=== PATIENT | female | born 1945 | race Caucasian/White ===

== ENCOUNTER → 2016-11-09 | Outpatient (CLI) | payer MEDICARE ==
--- NOTE | 2016-11-14 11:06 | MM ---
Reason for exam: screening (asymptomatic). Last mammogram was performed 1 year and 2 months ago. History: Patient is postmenopausal. Physical Findings: A clinical breast exam by your physician is recommended on an annual basis and results should be correlated with mammographic findings. MG 3D Screening Mammo W/Cad Bilateral CC and MLO view(s) were taken. Prior study comparison: September 16, 2015, bilateral MG screening mammo w CAD. January 02, 2013, bilateral digital screening mammo w/CAD. There are scattered fibroglandular densities. There is no discrete abnormality. No significant changes when compared with prior studies. ASSESSMENT: Negative, BI-RAD 1 RECOMMENDATION: Routine screening mammogram of both breasts in 1 year.
== END | disposition home or self-care (01) ==
LOC: RADMAMWWP 07:37
PROVIDERS: ATTEND Family Medicine
DX: Z12.31 Encounter for screening mammogram for malignant neoplasm of breast (principal)
CPT/HCPCS: 77063; G0202

== ENCOUNTER → 2018-02-15 | Outpatient (CLI) | payer MEDICARE ==
--- NOTE | 2018-02-19 10:02 | MM ---
Reason for exam: screening (asymptomatic). Last mammogram was performed 1 year and 3 months ago. History: Patient is postmenopausal. Physical Findings: A clinical breast exam by your physician is recommended on an annual basis and results should be correlated with mammographic findings. MG Screening Mammo w CAD Bilateral CC and MLO view(s) were taken. Technologist: Mirtha Horvath RT (R)(M) Prior study comparison: November 09, 2016, bilateral MG 3d screening mammo w/cad. September 16, 2015, bilateral MG screening mammo w CAD. There are scattered fibroglandular densities. No significant changes when compared with prior studies. ASSESSMENT: Benign, BI-RAD 2 RECOMMENDATION: Routine screening mammogram of both breasts in 1 year.
== END | disposition home or self-care (01) ==
LOC: RADMAMWWP 12:58
PROVIDERS: ATTEND Family Medicine
DX: Z12.31 Encounter for screening mammogram for malignant neoplasm of breast (principal)
CPT/HCPCS: 77067

== ENCOUNTER → 2019-03-26 | Outpatient (CLI) | payer MEDICARE ==
--- NOTE | 2019-03-27 14:20 | MM ---
Reason for exam: screening (asymptomatic). Last mammogram was performed 1 year and 1 month ago. History: Patient is postmenopausal. Physical Findings: A clinical breast exam by your physician is recommended on an annual basis and results should be correlated with mammographic findings. MG 3D Screening Mammo W/Cad Bilateral CC and MLO view(s) were taken. Prior study comparison: February 15, 2018, bilateral MG screening mammo w CAD. November 09, 2016, bilateral MG 3d screening mammo w/cad. The breast tissue is heterogeneously dense. This may lower the sensitivity of mammography. Benign appearing bilateral calcifications. No suspicious abnormality. No significant changes when compared with prior studies. ASSESSMENT: Benign, BI-RAD 2 RECOMMENDATION: Routine screening mammogram of both breasts in 1 year.
== END | disposition home or self-care (01) ==
LOC: RADMAMWWP 09:51
PROVIDERS: ATTEND Family Medicine
DX: Z12.31 Encounter for screening mammogram for malignant neoplasm of breast (principal)
CPT/HCPCS: 77063; 77067

== ENCOUNTER → 2019-06-10 | Outpatient (CLI) | payer MEDICARE ==
--- NOTE | 2019-06-10 15:19 | XR ---
EXAMINATION TYPE: XR shoulder complete RT DATE OF EXAM: 06/10/2019 COMPARISON: NONE HISTORY: Pain TECHNIQUE: Three views are submitted. FINDINGS: The osseous structures are intact. There is no acute fracture or dislocation. Arthropathy of the AC joint. Diffuse osteopenia.. IMPRESSION: 1. Severe AC joint arthropathy. If there is concern for rotator cuff disease correlate with MRI. 2. Diffuse osteopenia
== END | disposition home or self-care (01) ==
LOC: RADXRMAIN 13:47
PROVIDERS: ATTEND Family Medicine
DX: M85.811 Other specified disorders of bone density and structure, right shoulder (principal); M12.811 Other specific arthropathies, not elsewhere classified, right shoulder

== ENCOUNTER → 2019-10-02 | Outpatient (CLI) | payer MEDICARE ==
--- NOTE | 2019-10-02 11:01 | CT ---
EXAMINATION TYPE: CT cervical spine wo con DATE OF EXAM: 10/02/2019 COMPARISON: None HISTORY: 74-year-old. Radiculopathy, cervical region TECHNIQUE: Contiguous axial scanning of the cervical spine without IV contrast. Coronal and sagittal reconstructions performed. CT DLP: 332 mGycm Automated exposure control for dose reduction was used. FINDINGS: Left ICA stent is present. No craniocervical junction abnormality, predental space, or prevertebral soft tissue swelling. Mild to moderate degenerative disc disease especially from C2 through C6 levels with discussed by com plex formation causing variable narrowing of the spinal canal at these levels. Alignment is maintained. Left sided C2-C3 facet bony ankylosis likely on a degenerative basis. Hypertrophic vertebral joint arthropathy. At C2-C3, moderate left neural foraminal stenosis. At C4-C5, moderate bilateral neural foraminal stenosis. At C5-C6, moderate right greater than left neural foraminal stenosis. At C7-T1, mild to moderate right neuroforaminal stenosis. IMPRESSION: 1. MODERATE MULTILEVEL SPONDYLOTIC CHANGE PARTICULARLY FROM C2-C6 LEVELS WITH MILD SPINAL CANAL STENO SES. 2. VARIABLE MODERATE NEURAL FORAMINAL STENOSES OUTLINED ABOVE. 3. NO MALALIGNMENT.
== END | disposition home or self-care (01) ==
LOC: RADCTMAIN 08:53
PROVIDERS: ATTEND Family Medicine
DX: M48.02 Spinal stenosis, cervical region (principal); M47.22 Other spondylosis with radiculopathy, cervical region
CPT/HCPCS: 72125

== ENCOUNTER 2023-09-14 13:49 | Observation (INO) | payer MEDICARE ==
--- NOTE | 2023-09-14 14:50 | ED ---
SOB HPI - General Source: patient, RN notes reviewed Mode of arrival: ambulatory Limitations: no limitations <Lulu Dsouza - Last Filed: 09/14/23 14:49> <Rell Caldera - Last Filed: 09/14/23 18:45> - General Chief Complaint: Shortness of Breath Stated Complaint: SOB Time Seen by Provider: 09/14/23 14:49 - History of Present Illness Initial Comments: Patient is a 78-year-old female presented to ER with chief complaint of dyspnea. Patient also was endorsing chest heaviness. Patient states has been going on since Monday. Patient denies any fevers, chills, night sweats. (Lulu Dsouza) This is a 78-year-old female presents to the emergency ferment. She complains today of dyspnea which started on Monday. Patient states she has some sharp chest pain particular on the left side. Patient states her dyspnea is worse with exertion. Patient states the pain is sharp in nature. Patient Nuys any swelling to legs or calf tenderness. Patient denies any cough or fever. Patient denies any upper respiratory symptoms. Patient denies abdominal pain. Patient has any back pain. (Rell Caldera) - Related Data Home Medications Medication Instructions Recorded Confirmed Aspirin 325 mg PO HS 09/16/15 09/14/23 Atorvastatin [Lipitor] 40 mg PO HS 09/16/15 09/14/23 Bisoprolol-Hctz 2.5-6.25 mg [Ziac 1 tab PO DAILY@1500 09/16/15 09/14/23 2.5-6.25 MG] Losartan [Cozaar] 50 mg PO DAILY@1500 09/16/15 09/14/23 amLODIPine [Norvasc] 10 mg PO DAILY@0800 09/16/15 09/14/23 Cholecalciferol [Vitamin D3 (25 50 mcg PO DAILY@1500 09/14/23 09/14/23 Mcg = 1000 Iu)] Levothyroxine Sodium [Synthroid] 125 mcg PO DAILY@0809/14/23 09/14/23 sitaGLIPtin [Januvia] 50 mg PO DAILY@0809/14/23 09/14/23 Allergies Allergy/AdvReac Type Severity Reaction Status Date / Time ibuprofen Allergy Itching Verified 09/14/23 17:57 Sulfa (Sulfonamide Allergy Rash/Hives Verified 09/14/23 17:57 Antibiotics) Review of Systems ROS Other: All systems not noted in ROS Statement are negative. <Lulu Dsouza - Last Filed: 09/14/23 14:49> ROS Other: All systems not noted in ROS Statement are negative. <Rell Caldera - Last Filed: 09/14/23 18:45> ROS Statement: Those systems with pertinent positive or pertinent negative responses have been documented in the HPI. Past Medical History Past Medical History: Coronary Artery Disease (CAD), Diabetes Mellitus, Hyperlipidemia, Hypertension, Thyroid Disorder History of Any Multi-Drug Resistant Organisms: None Reported Past Surgical History: Heart Catheterization With Stent, Hysterectomy, Tonsillectomy Additional Past Surgical History / Comment(s): HEART STENT X2, SIL CAROTIDENDARTECTOMY, SIL CATARACTS Past Anesthesia/Blood Transfusion Reactions: No Reported Reaction Date of Last Stent Placement:: UNKNOWN Past Psychological History: No Psychological Hx Reported Smoking Status: Never smoker Past Alcohol Use History: Rare Past Drug Use History: None Reported - Past Family History Mother Family Medical History: No Reported History <Lulu Dsouza - Last Filed: 09/14/23 14:49> General Exam Limitations: no limitations <Lulu Dsouza - Last Filed: 09/14/23 14:49> <Rell Caldera - Last Filed: 09/14/23 18:45> - General Exam Comments Initial Comments: Visual Physical Exam Vital signs reviewed General: Well-appearing, nontoxic, no acute distress. Head: Normocephalic, atraumatic Eyes: PERRLA, EOMI ENT: Airway patent Chest: Nonlabored breathing Skin: No visual rash, normal skin tone Neuro: Alert and oriented 3 Musculoskeletal: No gross abnormalities (Lulu Dsouza) GENERAL: Patient is well-developed and well-nourished. Patient is nontoxic and well- hydrated and is in mild distress. ENT: Neck is soft and supple. No significant lymphadenopathy is noted. Oropharynx is clear. Moist mucous membranes. Neck has full range of motion without eliciting any pain. EYES: The sclera were anicteric and conjunctiva were pink and moist. Extraocular movements were intact and pupils were equal round and reactive to light. Eyel ids were unremarkable. PULMONARY: Unlabored respirations. Good breath sounds bilaterally. No audible rales rhonchi or wheezing was noted. CARDIOVASCULAR: There is a regular rate and rhythm without any murmurs gallops or rubs. ABDOMEN: Soft and nontender with normal bowel sounds. SKIN: Skin is clear with no lesions or rashes and otherwise unremarkable. NEUROLOGIC: Patient is alert and oriented x3. Cranial nerves II through XII are grossly intact. Motor and sensory are also intact. Normal speech, volume and content. Symmetrical smile. MUSCULOSKELETAL: Normal extremities with adequate strength and full range of motion. LYMPHATICS: No significant lymphadenopathy is noted PSYCHIATRIC: Normal psychiatric evaluation. (Rell Caldera) Course Vital Signs 09/14/23 09/14/23 09/14/23 13:58 15:13 17:22 Temperature 98.8 F 98.4 F 98 F Pulse Rate 53 L 93 85 Respiratory 16 20 20 Rate Blood Pressure 132/73 160/75 147/66 O2 Sat by Pulse 95 96 94 L Oximetry Medical Decision Making <Lulu Dsouza - Last Filed: 09/14/23 14:49> - Lab Data Result diagrams: 09/14/23 14:23 09/14/23 14:23 <Rell Caldera - Last Filed: 09/14/23 18:45> - Medical Decision Making I performed the quick note portion of the exam. Electronically signed by Lulu Dsouza PA-C (Lulu Dsouza) EKG is interpreted by myself. EKG shows a sinus rhythm with occasional PVC at 94 bpm. 180 QRS 113 QT interval 356 QTc is 407. Patient's EKG shows no ST segment elevation. Was pt. sent in by a medical professional or institution ([facility], [facility], urgent care, hospital, or longterm...) When possible be specific @ -Patient's primary medical care doctor sent her to the emergency department Did you speak to anyone other than the patient for history (EMS, parent, family, police, friend...)? What history was obtained from this source @ -No Did you review nursing and triage notes (agree or disagree)? Why? @ -I reviewed and agree with nursing and triage notes Were old charts reviewed (outside hosp., previous admission, EMS record, old EKG, old radiological studies, urgent care reports/EKG's, longterm records)? Report findings @ -I reviewed prior charts and prior lab work on this patient Differential Diagnosis (chest pain, altered mental status, abdominal pain women, abdominal pain men, vaginal bleeding, weakness, fever, dyspnea, syncope, heada ly, dizziness, GI bleed, back pain, seizure, CVA, palpatations, mental health, musculoskeletal)? @ -Differential Dyspnea: Coronary syndrome, arrhythmia, tamponade, asthma, COPD, pulmonary embolism, pneumonia, pneumothorax, pulmonary effusion, anaphylaxis, diabetic ketoacidosis, flailed chest, pulmonary contusion, diaphragmatic rupture, anemia, neuromuscular, this is not meant to be an all-inclusive list. EKG interpreted by me (3pts min.). @ -As above X-rays interpreted by me (1pt min.). @ -Chest x-ray shows an infiltrate and pleural effusion on the right CT interpreted by me (1pt min.). @ -CT shows an opacification in the right apex consistent with possible neoplasm U/S interpreted by me (1pt. min.). @ -None done What testing was considered but not performed or refused? (CT, X-rays, U/S, labs)? Why? @ -None What meds were considered but not given or refused? Why? @ -None Did you discuss the management of the patient with other professionals (professionals i.e. , PA, [facility], lab, RT, psych nurse, social psychologist, farm implement mechanic, teacher, sea air land officer, bottle caser)? Give summary @ -[facility] admitted the patient and wrote admitting orders Was smoking cessation discussed for >3mins.? @ -No Was critical care preformed (if so, how long)? @ -No Were there social determinants of health that impacted care today? How? (Homeles sness, low income, unemployed, alcoholism, drug addiction, transportation, low edu. Level, literacy, decrease access to med. care, usp, rehab)? @ -No Was there de-escalation of care discussed even if they declined (Discuss DNR or withdrawal of care, Hospice)? DNR status @ -No What co-morbidities impacted this encounter? (DM, HTN, Smoking, COPD, CAD, Cancer, CVA, ARF, Chemo, Hep., AIDS, mental health diagnosis, sleep apnea, morbid obesity)? @ -None Was patient admitted / discharged? Hospital course, mention meds given and route, prescriptions, significant lab abnormalities, going to OR and other pertinent info. @ -Patient will be admitted to [facility] hospice I will consult pulmonary and oncology Undiagnosed new problem with uncertain prognosis? @ -No Drug Therapy requiring intensive monitoring for toxicity (Heparin, Nitro, Insulin, Cardizem)? @ -No Were any procedures done? @ -No Diagnosis/symptom? @ -Right lung mass Acute, or Chronic, or Acute on Chronic? @ -Acute Uncomplicated (without systemic symptoms) or Complicated (systemic symptoms)? @ -Complicated Side effects of treatment? @ -No Exacerbation, Progression, or Severe Exacerbation? @ -No Poses a threat to life or bodily function? How? (Chest pain, [place], [place], pneumonia, PE, COPD, DKA, ARF, appy, cholecystitis, CVA, Diverticulitis, Homicidal, Suicidal, threat to staff... and all critical care pts) @ -Yes this could be a tumor with metastatic pleural effusion which can lead to further metastasis and endorgan dysfunction Diagnosis/symptom? @ -Right lung opacification Acute, or Chronic, or Acute on Chronic? @ -Acute Uncomplicated (without systemic symptoms) or Complicated (systemic symptoms)? @ -Complicated Side effects of treatment? @ -None Exacerbation, Progression, or Severe Exacerbation] @ -No Poses a threat to life or bodily function? @ -No (Rell Caldera) - Lab Data Lab Results 09/14/23 09/14/23 09/14/23 Range/Units 14:23 14:23 14:23 WBC 12.7 H (3.8-10.6) k/uL RBC 4.14 (3.80-5.40) m/uL Hgb 12.5 (11.4-16.0) gm/dL Hct 36.2 (34.0-46.0) % MCV 87.3 (80.0-100.0) fL MCH 30.2 (25.0-35.0) pg MCHC 34.6 (31.0-37.0) g/dL RDW 13.4 (11.5-15.5) % Plt Count 258 (150-450) k/uL MPV 7.1 Neutrophils % 80 % Lymphocytes % 11 % Monocytes % 6 % Eosinophils % 1 % Basophils % 1 % Neutrophils # 10.1 H (1.3-7.7) k/uL Lymphocytes # 1.4 (1.0-4.8) k/uL Monocytes # 0.8 (0-1.0) k/uL Eosinophils # 0.2 (0-0.7) k/uL Basophils # 0.1 (0-0.2) k/uL PT 10.4 (10.0-12.5) sec INR 0.9 (<1.2) APTT 26.2 (22.0-30.0) sec Sodium 134 L (137-145) mmol/L Potassium 3.6 (3.5-5.1) mmol/L Chloride 99 (98-107) mmol/L Carbon Dioxide 25 (22-30) mmol/L Anion Gap 10 mmol/L BUN 11 (7-17) mg/dL Creatinine 0.66 (0.52-1.04) mg/dL Est GFR (CKD-EPI)AfAm >90 (>60 ml/min/1.73 sqM) Est GFR (CKD-EPI)NonAf 84 (>60 ml/min/1.73 sqM) Glucose 233 H (74-99) mg/dL Calcium 10.0 (8.4-10.2) mg/dL Total Bilirubin 0.6 (0.2-1.3) mg/dL AST 28 (14-36) U/L ALT 17 (4-34) U/L Alkaline Phosphatase 94 (38-126) U/L Troponin I (0.000-0.034) ng/mL Total Protein 8.3 H (6.3-8.2) g/dL Albumin 4.5 (3.5-5.0) g/dL Influenza Type A (PCR) (Not Detectd) Influenza Type B (PCR) (Not Detectd) RSV (PCR) (Not Detectd) SARS-CoV-2 (PCR) (Not Detectd) 09/14/23 09/14/23 Range/Units 14:23 14:23 WBC (3.8-10.6) k/uL RBC (3.80-5.40) m/uL Hgb (11.4-16.0) gm/dL Hct (34.0-46.0) % MCV (80.0-100.0) fL MCH (25.0-35.0) pg MCHC (31.0-37.0) g/dL RDW (11.5-15.5) % Plt Count (150-450) k/uL MPV Neutrophils % % Lymphocytes % % Monocytes % % Eosinophils % % Basophils % % Neutrophils # (1.3-7.7) k/uL Lymphocytes # (1.0-4.8) k/uL Monocytes # (0-1.0) k/uL Eosinophils # (0-0.7) k/uL Basophils # (0-0.2) k/uL PT (10.0-12.5) sec INR (<1.2) APTT (22.0-30.0) sec Sodium (137-145) mmol/L Potassium (3.5-5.1) mmol/L Chloride (98-107) mmol/L Carbon Dioxide (22-30) mmol/L Anion Gap mmol/L BUN (7-17) mg/dL Creatinine (0.52-1.04) mg/dL Est GFR (CKD-EPI)AfAm (>60 ml/min/1.73 sqM) Est GFR (CKD-EPI)NonAf (>60 ml/min/1.73 sqM) Glucose (74-99) mg/dL Calcium (8.4-10.2) mg/dL Total Bilirubin (0.2-1.3) mg/dL AST (14-36) U/L ALT (4-34) U/L Alkaline Phosphatase (38-126) U/L Troponin I <0.012 (0.000-0.034) ng/mL Total Protein (6.3-8.2) g/dL Albumin (3.5-5.0) g/dL Influenza Type A (PCR) Not Detected (Not Detectd) Influenza Type B (PCR) Not Detected (Not Detectd) RSV (PCR) Not Detected (Not Detectd) SARS-CoV-2 (PCR) Not Detected (Not Detectd) Disposition <Lulu Dsouza - Last Filed: 09/14/23 14:49> Time of Disposition: 18:45 <Rell Caldera - Last Filed: 09/14/23 18:45> Clinical Impression: Mass of lung, Pneumonia Disposition: ADMITTED IP TO THIS HOSP Referrals: Esteban Grant DO [Primary Care Provider] - 1-2 days
--- NOTE | 2023-09-14 14:54 | XR ---
EXAMINATION TYPE: XR chest 2V DATE OF EXAM: 09/14/2023 COMPARISON: None HISTORY: 78 year-old female shortness of breath, difficulty breathing TECHNIQUE: PA and lateral views FINDINGS: Heart normal size. Atherosclerotic arch calcifications. There is a small right pleural effusion and r ight upper lobe. IMPRESSION: Prominent focal opacity right upper lobe, possible pneumonia. Additional small right pleural effusion . Follow-up after treatment to ensure clearance.
[2023-09-14 15:03] LABS: INR 0.9 (<1.2); Partial Thromboplastin Time 26.2 sec (22.0-30.0); Prothrombin Time 10.4 sec (10.0-12.5)
[2023-09-14 15:05] LABS: Basophils # (A) 0.1 k/uL (0-0.2); Basophils % (A) 1 %; Eosinophils # (A) 0.2 k/uL (0-0.7); Eosinophils % (A) 1 %; HCT 36.2 % (34.0-46.0); HGB 12.5 gm/dL (11.4-16.0); Lymphocytes # (A) 1.4 k/uL (1.0-4.8); Lymphocytes % (A) 11 %; MCH 30.2 pg (25.0-35.0); MCHC 34.6 g/dL (31.0-37.0); MCV 87.3 fL (80.0-100.0); Mean Platelet Volume 7.1; Monocytes # (A) 0.8 k/uL (0-1.0); Monocytes % (A) 6 %; Neutrophils # (A) 10.1 k/uL (1.3-7.7); Neutrophils % (A) 80 %; Platelet Count 258 k/uL (150-450); RBC 4.14 m/uL (3.80-5.40); RDW 13.4 % (11.5-15.5)
[2023-09-14 15:06] LABS: WBC 12.7 k/uL (3.8-10.6)
[2023-09-14 15:37] LABS: ALT 17 U/L (4-34); AST 28 U/L (14-36); African American GFR (CKD) >90 (>60 ml/min/1.73 sqM); Albumin 4.5 g/dL (3.5-5.0); Alkaline Phosphatase 94 U/L (38-126); Anion Gap 10 mmol/L; Blood Urea Nitrogen 11 mg/dL (7-17); Carbon Dioxide 25 mmol/L (22-30); Chloride 99 mmol/L (98-107); Glucose 233 mg/dL (74-99); Non-African American GFR(CKD) 84 (>60 ml/min/1.73 sqM); Potassium 3.6 mmol/L (3.5-5.1); Sodium 134 mmol/L (137-145); Total Bilirubin 0.6 mg/dL (0.2-1.3); Total Protein 8.3 g/dL (6.3-8.2)
[2023-09-14] MEDS ORDERED: KETOROLAC 15 MG/ML 1 ML VIAL IVP STA (16:05)
--- NOTE | 2023-09-14 17:31 | CT ---
EXAMINATION TYPE: CT chest angio for PE CT DLP: 315 mGycm, Automated exposure control for dose reduction was used. DATE OF EXAM: 09/14/2023 5:12 PM COMPARISON: Chest radiographs 09/14/2023 CLINICAL INDICATION:Female, 78 years old with history of Chest pain, shortness of breath; Chest pain, SOB TECHNIQUE/CONTRAST: CTA scan of the thorax is performed with IV Contrast, patient injected with 100 mL of Isovue 370, MIP images are created and reviewed these are created on a separate workstation.. FINDINGS: Pulmonary Artery: There is no evidence for a filling defect within the pulmonary vasculature to sugge st acute pulmonary embolism. The pulmonary artery is of normal size. Lungs/Pleura: Since moderate right pleural effusion with associated atelectasis. There is right perih ilar soft tissue fullness which extends up towards the periphery. Patchy airspace opacities are seen in the right upper lung. Perihilar soft tissue masslike area measuring at least 32 x 29 mm. Multiple prominent lymph nodes are seen throughout the mediastinum including right high paratracheal lymph nod e measuring 8 mm in short axis as well as subcarinal soft tissue and right low paratracheal lymph nod es. Airway: Large airways are patent. Heart: There is mildly enlarged for size. There is coronary artery calcifications present. Vasculature: No evidence of aortic aneurysm. Mediastinum: No gross evidence of adenopathy. Musculoskeletal: No acute osseous abnormalities Soft Tissues: Unremarkable. Lower neck: No significant findings. Upper Abdomen: Large left renal cyst measuring 8.6 cm. Layering densities in the gallbladder lumen. IMPRESSION: 1. No evidence of pulmonary embolism. 2. Right perihilar soft tissue fullness which extends somewhat towards the periphery in the right katherin g apex. Findings suspicious for neoplasm. Further oncologic workup recommended. 3. Patchy right upper lung airspace opacities possibly relating to postobstructive infection/atelecta sis from obstructing right perihilar mass. 4. Moderate right pleural effusion. 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 5. Cholelithiasis.
[2023-09-14] MEDS ORDERED: AZITHROMYCIN 500 MG in SODIUM CHLORIDE 0.9% 250 ML IVPB STA (18:46)
[2023-09-14] MEDS ORDERED: PNEUMONIA PROTOCOL UTILIZED 1 EACH MISC PO PRN (18:46)
--- NOTE | 2023-09-15 08:01 | XR ---
EXAMINATION TYPE: XR chest 2V DATE OF EXAM: 09/15/2023 COMPARISON: 09/14/2023 HISTORY: Shortness of breath TECHNIQUE: Frontal and lateral views of the chest are obtained. FINDINGS: Scattered senescent parenchymal changes noted. Hyperinflation compatible with COPD. Stable right upper lobe infiltrate. Increasing density right medial lung base. Heart size is stable. Mediastinal structures are stable and grossly unremarkable. No evidence for hilar prominence. Degenerative changes dorsal spine. IMPRESSION: 1. Stable right upper lobe infiltrate. Increasing density right medial lung base.
[2023-09-15] MEDS ORDERED: SODIUM CHLORIDE 0.9% 1,000 ML IV SCH (09:00)
[2023-09-15] MEDS ORDERED: ONDANSETRON 4 MG/2 ML VIAL IVP PRN (09:00)
[2023-09-15] MEDS ORDERED: NALOXONE 0.4 MG/ML 1 ML VIAL IV PRN (09:00)
[2023-09-15] MEDS ORDERED: DEXTROSE 50% SYRINGE 50 ML IVP PRN ×2 (09:01)
[2023-09-15] MEDS: ACETAMINOPHEN TAB 325 MG TAB PO PRN ×2 (09:06→19:01)
[2023-09-15] MEDS: guaiFENesin 600 MG TABLET.ER PO SCH ×2 (09:18→22:03)
[2023-09-15 11:57] LABS: Glucose,Whole Blood 155 mg/dL (70-110)
--- NOTE | 2023-09-15 12:28 | P.HPIM ---
History of Present Illness H&P Date: 09/15/23 Chief Complaint: Shortness of breath * 78-year-old patient with past medical history significant for diabetes mellitus, hyperlipidemia hypertension coronary artery disease history of PCI, degenerative disease with low back pain, carotid artery stenosis with left carotid artery stent in place presents to the emergency department with complaints of shortness of breath, and chest pain. Patient states her symptom onset was 5 days ago when she started having difficulty in breathing. This was associated with sharp chest pain that was affecting left side. Patient states her shortness of breath got worse with exertion. Patient denies associated fever, chills, nausea, vomiting, back pain * Workup initiated in the ER included WBC count of 12.7, hemoglobin of 12.5 platelet count of 250 * Serum chemistry showed sodium 134 potassium 3.6 BUN 11 creatinine 0.66 glucose 233 protein of 8.3 troponin within normal limits * Patient tested negative for influenza COVID and RSV * Chest x-ray obtained in ER raise suspicion for focal opacity in the right upper lobe * CT angio chest was obtained which showed right perihilar soft tissue fullness that extend to the right lung apex suspicion for neoplasm, right upper lobe opacity noted, significant amount of pleural effusion was noted in right lung * Patient was admitted to medical floor with consultation to pulmonary medicine. Treated for new onset lung mass as well as postobstructive pneumonia REVIEW OF SYSTEMS: Cough, shortness of breath, weakness, chest pain CONSTITUTIONAL: No fever, no malaise, no fatigue. HEENT: No recent visual problems or hearing problems. Denied any sore throat. CARDIOVASCULAR: No chest pain, orthopnea, PND, no palpitations, no syncope. PULMONARY: Cough, shortness of breath, weakness, chest pain GASTROINTESTINAL: No diarrhea, no nausea, no vomiting, no abdominal pain. NEUROLOGICAL: No headaches, no weakness, no numbness. HEMATOLOGICAL: Denies any bleeding or petechiae. GENITOURINARY: Denies any burning micturition, frequency, or urgency. MUSCULOSKELETAL/RHEUMATOLOGICAL: Denies any joint pain, swelling, or any muscle pain. ENDOCRINE: Denies any polyuria or polydipsia. PHYSICAL EXAMINATION: GENERAL: The patient is alert and oriented x3, nasal cannula in place HEENT: Pupils are round and equally reacting to light. EOMI. CARDIOVASCULAR: S1 and S2 present. No murmurs, rubs, or gallops. PULMONARY: Decreased breath sounds right lower lobe ABDOMEN: Soft, nontender, nondistended, normoactive bowel sounds. No palpable organomegaly. MUSCULOSKELETAL: No joint swelling or deformity. EXTREMITIES: No cyanosis, clubbing, or pedal edema. NEUROLOGICAL: Gross neurological examination did not reveal any focal deficits. . Past Medical History Past Medical History: Coronary Artery Disease (CAD), Diabetes Mellitus, Hyperlipidemia, Hypertension, Thyroid Disorder History of Any Multi-Drug Resistant Organisms: None Reported Past Surgical History: Heart Catheterization With Stent, Hysterectomy, Tonsillectomy Additional Past Surgical History / Comment(s): HEART STENT X2, SIL CAROTIDENDARTECTOMY, SIL CATARACTS Past Anesthesia/Blood Transfusion Reactions: No Reported Reaction Date of Last Stent Placement:: UNKNOWN Past Psychological History: No Psychological Hx Reported Smoking Status: Never smoker Past Alcohol Use History: Rare Additional Past Alcohol Use History / Comment(s): QUIT SMOKING 1994, STARTED AGE 17 (1962), SMOKED 1PPD Past Drug Use History: None Reported - Past Family History Mother Family Medical History: No Reported History Medications and Allergies Home Medications Medication Instructions Recorded Confirmed Type Aspirin 325 mg PO HS 09/16/15 09/14/23 History Atorvastatin [Lipitor] 40 mg PO HS 09/16/15 09/14/23 History Bisoprolol-Hctz 2.5-6.25 mg [Ziac 1 tab PO DAILY@1500 09/16/15 09/14/23 History 2.5-6.25 MG] Losartan [Cozaar] 50 mg PO DAILY@1500 09/16/15 09/14/23 History amLODIPine [Norvasc] 10 mg PO DAILY@0800 09/16/15 09/14/23 History Cholecalciferol [Vitamin D3 (25 50 mcg PO DAILY@1500 09/14/23 09/14/23 History Mcg = 1000 Iu)] Levothyroxine Sodium [Synthroid] 125 mcg PO DAILY@79909/14/23 09/14/23 History sitaGLIPtin [Januvia] 50 mg PO DAILY@79909/14/23 09/14/23 History Allergies Allergy/AdvReac Type Severity Reaction Status Date / Time ibuprofen Allergy Itching Verified 09/14/23 17:57 Sulfa (Sulfonamide Allergy Rash/Hives Verified 09/14/23 17:57 Antibiotics) Physical Exam Vitals: Vital Signs Temp Pulse Pulse Resp BP BP BP 09/15/23 07:41 09/15/23 07:24 98.2 F 78 17 134/75 09/15/23 03:25 12 09/15/23 02:21 98.3 F 86 18 126/71 09/14/23 22:04 97.7 F 95 17 114/64 09/14/23 20:00 92 20 109/66 09/14/23 17:22 98 F 85 20 147/66 09/14/23 15:13 98.4 F 93 20 160/75 09/14/23 13:58 98.8 F 53 L 16 132/73 Pulse Ox 09/15/23 07:41 97 09/15/23 07:24 97 09/15/23 03:25 97 09/15/23 02:21 92 L 09/14/23 22:04 93 L 09/14/23 20:00 97 09/14/23 17:22 94 L 09/14/23 15:13 96 09/14/23 13:58 95 Intake and Output 09/14/23 09/15/23 09/15/23 22:59 06:59 14:59 Other: Weight 70.307 kg Results CBC & Chem 7: 09/14/23 14:23 09/14/23 14:23 Labs: Abnormal Lab Results - Last 24 Hours (Table) 09/14/23 09/14/23 Range/Units 14:23 14:23 WBC 12.7 H (3.8-10.6) k/uL Neutrophils # 10.1 H (1.3-7.7) k/uL Sodium 134 L (137-145) mmol/L Glucose 233 H (74-99) mg/dL Total Protein 8.3 H (6.3-8.2) g/dL Assessment and Plan Assessment: Assessment and plan * Right perihilar mass rule out neoplasm * Postobstructive pneumonia * Moderate right sided pleural effusion * Cholelithiasis incidental finding * Diabetes mellitus type 2 * History of coronary artery disease * Carotid artery disease * History of hypertension * In regards to perihilar mass, pulmonary medicine consulted CT angio chest reviewed, continue breathing treatments as needed patient has unilateral effusion * In regards to postobstructive pneumonia continue patient on Rocephin and azithromycin to complete 5-day course total follow-up on urine Legionella * In regards to diabetes mellitus Accu-Cheks ACHS continue correctional insulin continue patient on Januvia and linagliptin * In regards to history of hypertension continue losartan, continue amlodipine * In regards to history of coronary artery disease continue aspirin, Lipitor, bisoprolol * CODE STATUS is full code
[2023-09-15] MEDS: INSULIN ASPART (NovoLOG) 100 UNIT/ML VIAL SQ SCH ×3 (12:52→22:03)
[2023-09-15] MEDS: LIDOCAINE 4% PATCH TOPICAL SCH (12:52)
--- NOTE | 2023-09-15 14:04 | P.CNPUL ---
History of Present Illness Consult date: 09/15/23 Requesting physician: Linh Coreas Reason for consult: dyspnea, abnormal CXR/CT Chief complaint: Shortness of breath History of present illness: This is a very pleasant 78-year-old female patient with a known history of coronary disease with previous stent placement x 2, diabetes mellitus, hypot hyroidism, hypertension, hyperlipidemia, former smoker of 35 years at 1 pack/day however quit 25 years ago. 4 to 5 days ago she developed increasing shortness of breath, poor appetite. No real cough or congestion. No fever or chills. No hemoptysis. She has had a poor appetite. She presented here to the emergency room yesterday. Chest x-ray revealed prominent focal opacity of the right upper lobe, possible pneumonia. Additional small right pleural effusion. CT angiogram revealed no evidence of pulmonary embolism. There is a right perihilar soft tissue fullness which extends somewhat towards the periphery of the right lung apex. Findings suspicious for neoplasm. There is a patchy right upper lobe airspace opacity possibly postobstructive in infection/atelectasis from obstructing right perihilar mass. There is a moderate right pleural effusion. Possible malignancy within the differential. White count 12.7. Hemoglobin 12.5. Platelets 258. INR 0.9. Sodium 134. Potassium 3.6. Bicarb 25. BUN 11. Creatinine 0.66. Glucose 155. Troponins were negative x 3. Viral screen was negative. She is seen today in consultation on the regular medical floor. She is currently sitting up in bed. Awake and alert in no acute distress. She continues with some shortness of breath with conversation. Shortness of breath on exertion. She is maintaining O2 saturation 2 L/min per nasal cannula. She is afebrile. Hemodynamically stable Review of Systems REVIEW OF SYSTEMS: CONSTITUTIONAL: Denies any recent significant weight loss or weight gain. EYES: Denies change in vision. EARS, NOSE, MOUTH, THROAT: Denies headaches, denies sore throat. CARDIOVASCULAR: Denies chest pain, palpitations or syncopal episodes. RESPIRATORY: Positive for shortness of breath, no cough, congestion or hemoptysis. GASTROINTESTINAL: Positive for poor appetite, denies abdominal pain GENITOURINARY: Denies hematuria, denies infections. MUSKULOSKELETAL: Denies pain, denies swelling. INTEGUMENTARY: Denies rash, denies eczema. NEUROLOGICAL: Denies recent memory loss, no recent seizure activity. PSYCHIATRIC: Denies anxiety, denies depression. HEMATOLOGIC/LYMPHATIC: Denies anemia, denies enlarged lymph nodes. Past Medical History Past Medical History: Coronary Artery Disease (CAD), Diabetes Mellitus, Hyperlipidemia, Hypertension, Thyroid Disorder History of Any Multi-Drug Resistant Organisms: None Reported Past Surgical History: Heart Catheterization With Stent, Hysterectomy, Tonsillectomy Additional Past Surgical History / Comment(s): HEART STENT X2, SIL CAROTIDENDARTECTOMY, SIL CATARACTS Past Anesthesia/Blood Transfusion Reactions: No Reported Reaction Date of Last Stent Placement:: UNKNOWN Past Psychological History: No Psychological Hx Reported Smoking Status: Never smoker Past Alcohol Use History: Rare Additional Past Alcohol Use History / Comment(s): QUIT SMOKING 1994, STARTED AGE 17 (1962), SMOKED 1PPD Past Drug Use History: None Reported - Past Family History Mother Family Medical History: No Reported History Medications and Allergies Home Medications Medication Instructions Recorded Confirmed Type Aspirin 325 mg PO HS 09/16/15 09/14/23 History Atorvastatin [Lipitor] 40 mg PO HS 09/16/15 09/14/23 History Bisoprolol-Hctz 2.5-6.25 mg [Ziac 1 tab PO DAILY@1500 09/16/15 09/14/23 History 2.5-6.25 MG] Losartan [Cozaar] 50 mg PO DAILY@1500 09/16/15 09/14/23 History amLODIPine [Norvasc] 10 mg PO DAILY@0800 09/16/15 09/14/23 History Cholecalciferol [Vitamin D3 (25 50 mcg PO DAILY@1500 09/14/23 09/14/23 History Mcg = 1000 Iu)] Levothyroxine Sodium [Synthroid] 125 mcg PO DAILY@0809/14/23 09/14/23 History sitaGLIPtin [Januvia] 50 mg PO DAILY@79909/14/23 09/14/23 History Allergies Allergy/AdvReac Type Severity Reaction Status Date / Time ibuprofen Allergy Itching Verified 09/14/23 17:57 Sulfa (Sulfonamide Allergy Rash/Hives Verified 09/14/23 17:57 Antibiotics) Physical Exam Vitals: Vital Signs Temp Pulse Pulse Resp BP BP BP 09/15/23 12:36 97.9 F 87 16 128/70 09/15/23 07:41 09/15/23 07:24 98.2 F 78 17 134/75 09/15/23 03:25 12 09/15/23 02:21 98.3 F 86 18 126/71 09/14/23 22:04 97.7 F 95 17 114/64 09/14/23 20:00 92 20 109/66 09/14/23 17:22 98 F 85 20 147/66 09/14/23 15:13 98.4 F 93 20 160/75 09/14/23 13:58 98.8 F 53 L 16 132/73 Pulse Ox 09/15/23 12:36 96 09/15/23 07:41 97 09/15/23 07:24 97 09/15/23 03:25 97 09/15/23 02:21 92 L 09/14/23 22:04 93 L 09/14/23 20:00 97 09/14/23 17:22 94 L 09/14/23 15:13 96 09/14/23 13:58 95 Intake and Output 09/14/23 09/15/23 09/15/23 22:59 06:59 14:59 Other: Voiding Method Toilet Weight 70.307 kg GENERAL EXAM: Alert, very pleasant 78-year-old female, on 2 L nasal cannula, fairly comfortable in no apparent distress. HEAD: Normocephalic. EYES: Normal reaction of pupils, equal size. NOSE: Clear with pink turbinates. THROAT: No erythema or exudates. NECK: No masses, no JVD. CHEST: No chest wall deformity. LUNGS: Equal air entry with diminished breath sounds in the right lung base. CVS: S1 and S2 normal with no audible murmur, regular rhythm. ABDOMEN: No hepatosplenomegaly, normal bowel sounds, no guarding or rigidity. SPINE: No scoliosis or deformity SKIN: No rashes CENTRAL NERVOUS SYSTEM: No focal deficits, tone is normal in all 4 extremities. EXTREMITIES: There is no peripheral edema. No clubbing, no cyanosis. Peripheral pulses are intact. Results - Laboratory Findings CBC and BMP: 09/14/23 14:23 09/14/23 14:23 PT/INR, D-dimer PT 10.4 sec (10.0-12.5) 09/14/23 14:23 INR 0.9 (<1.2) 09/14/23 14:23 Abnormal lab findings: Abnormal Labs 09/14/23 09/14/23 09/15/23 14:23 14:23 11:55 WBC 12.7 H Neutrophils # 10.1 H Sodium 134 L Glucose 233 H POC Glucose (mg/dL) 155 H Total Protein 8.3 H - Diagnostic Findings Chest x-ray: image reviewed CT scan - chest: image reviewed Assessment and Plan Assessment: Acute hypoxemic respiratory failure secondary to suspected postobstructive pneumonia secondary to to a right hilar mass and pleural effusion on the right History of 35 years of smoking at 1 pack/day however quit 25 years ago History of coronary disease with stent placement x 2 Diabetes mellitus Hypothyroidism Hypertension Hyperlipidemia Plan: The patient was seen and evaluated Chest x-ray, CT angiogram of the chest, labs and medications reviewed Obtain an ultrasound of the right pleural effusion May proceed with thoracentesis if significant fluid Check a procalcitonin Continue ceftriaxone and azithromycin for now Lovenox for DVT prophylaxis Saline at 75 MLS per hour May require bronchoscopy with biopsies Titrate the FiO2 as tolerated We will continue to follow and make further recommendations based on her clinical status I have personally seen and examined the patient, performed the documentation and the assessment and plan as written. Number of minutes spent on the visit: 20.
[2023-09-15] MEDS: CHOLECALCIFEROL 25 MCG (1000 IU) TABLET PO SCH (15:44)
[2023-09-15] MEDS: HYDROcodone/APAP 5-325MG 1 EACH TAB PO PRN ×2 (15:44→21:32)
[2023-09-15] MEDS: LOSARTAN 50 MG TAB PO SCH (15:44)
--- NOTE | 2023-09-15 16:13 | XR ---
EXAMINATION TYPE: XR chest 1V portable DATE OF EXAM: 09/15/2023 3:58 PM CLINICAL INDICATION:Female, 78 years old with history of Post right thoracentesis; [facility] COMPARISON: Chest radiographs from same day earlier. TECHNIQUE: XR chest 1V portable Frontal view of the chest. FINDINGS: Lungs/Pleura: Decrease in right pleural effusion. There is no evidence of left pleural effusion, foca l consolidation, or pneumothorax. Pulmonary vascularity: Unremarkable. Heart/mediastinum: Cardiomediastinal silhouette is prominent in size. Atherosclerotic calcifications are seen in the aorta. Musculoskeletal: No acute osseous pathology. IMPRESSION: 1. Postthoracentesis with no evidence for pneumothorax. 2. No significant change with right upper lung airspace opacities
[2023-09-15] MEDS: BISOPROLOL-HCTZ 2.5-6.25 MG 1 EACH TAB PO SCH (16:26)
[2023-09-15 17:44] LABS: Glucose,Whole Blood 209 mg/dL (70-110)
[2023-09-15] MEDS ORDERED: AZITHROMYCIN 500 MG TAB PO SCH (18:00)
--- NOTE | 2023-09-15 19:52 | PCN ---
PROCEDURE NOTE PROCEDURE PERFORMED: Right-sided thoracentesis. PREOPERATIVE DIAGNOSIS: Right pleural effusion. POSTOPERATIVE DIAGNOSIS: Right pleural effusion. WASHER AND CAPPER MACHINE OPERATOR: Dr. Alan. FIRST ASSOCIATE JAVA DEVELOPER: Dr. Suzie Freire. The right posterior chest was marked by ultrasound. A time-out was completed verifying correct patient, procedure, site, positioning , and implant (s) or special equipment if applicable. Ultrasound guidance was/was not used and appropriate fluid pocket was identified and marked. Patient was positioned, prepped and draped in usual sterile fashion. Lidocaine was used to anesthetize the area. A Thoracentesis catheter was introduced into the pleural space and fluid was removed. Blood loss was none. A chest x-ray was ordered to evaluate for pneumothorax. There was informed consent and universal timeout. Roughly 1350 mL of dark yellow fluid was removed from the right pleural space. The patient tolerated the procedure well. There was no immediate complication. A chest x-ray will be ordered. The fluid will be sent for analysis including chemistry, cytology, and microbiology. Again, no issues or complications. The patient tolerated the procedure very well. MMODL / IJN: [id number] /
[2023-09-15 20:10] LABS: Glucose,Whole Blood 152 mg/dL (70-110)
[2023-09-15] MEDS: ASPIRIN 325 MG TAB PO SCH (22:03)
[2023-09-15] MEDS: ATORVASTATIN 40 MG TAB PO SCH (22:03)
[2023-09-16 03:21] LABS: Glucose, BF Source Thoracentesis F; Glucose, Body Fluid 170 mg/dL; LDH, Body Fluid Source Thoracentesis F; T. Protein, Body Fluid Source Thoracentesis F; Total Protein, Body Fluid >3600 mg/dL
[2023-09-16 04:58] LABS: Appearance,BF Cloudy (Clear)
[2023-09-16 07:35] LABS: Glucose,Whole Blood 141 mg/dL (70-110)
[2023-09-16] MEDS: LIDOCAINE 4% PATCH TOPICAL SCH (07:47)
[2023-09-16] MEDS: INSULIN ASPART (NovoLOG) 100 UNIT/ML VIAL SQ SCH ×4 (07:47→21:00)
[2023-09-16] MEDS: LEVOTHYROXINE 125 MCG TAB PO SCH (07:49)
[2023-09-16] MEDS: guaiFENesin 600 MG TABLET.ER PO SCH ×2 (07:49→20:59)
[2023-09-16] MEDS: ENOXAPARIN 40 MG/0.4 ML SYRINGE SQ SCH (07:49)
[2023-09-16] MEDS: amLODIPine 10 MG TAB PO SCH (07:49)
[2023-09-16] MEDS: LINAGLIPTIN 5 MG TABLET PO SCH (07:50)
[2023-09-16] MEDS: HYDROcodone/APAP 5-325MG 1 EACH TAB PO PRN ×3 (07:50→20:59)
[2023-09-16 08:30] LABS: Basophils # (A) 0.1 k/uL (0-0.2); Basophils % (A) 1 %; Eosinophils # (A) 0.4 k/uL (0-0.7); Eosinophils % (A) 5 %; HCT 35.1 % (34.0-46.0); HGB 11.4 gm/dL (11.4-16.0); Lymphocytes # (A) 1.6 k/uL (1.0-4.8); Lymphocytes % (A) 19 %; MCHC 32.4 g/dL (31.0-37.0); MCV 89.3 fL (80.0-100.0); Mean Platelet Volume 6.7; Monocytes # (A) 0.4 k/uL (0-1.0); Monocytes % (A) 5 %; Neutrophils # (A) 5.9 k/uL (1.3-7.7); Neutrophils % (A) 68 %; Platelet Count 227 k/uL (150-450); RBC 3.92 m/uL (3.80-5.40); RDW 13.5 % (11.5-15.5); WBC 8.6 k/uL (3.8-10.6)
[2023-09-16 09:03] LABS: Potassium 3.9 mmol/L (3.5-5.1)
[2023-09-16 10:38] LABS: African American GFR (CKD) >90 (>60 ml/min/1.73 sqM); Anion Gap 6 mmol/L; Blood Urea Nitrogen 12 mg/dL (7-17); Calcium 9.3 mg/dL (8.4-10.2); Carbon Dioxide 27 mmol/L (22-30); Chloride 104 mmol/L (98-107); Glucose 129 mg/dL (74-99); Non-African American GFR(CKD) 89 (>60 ml/min/1.73 sqM); Sodium 137 mmol/L (137-145)
[2023-09-16] MEDS ORDERED: AZITHROMYCIN 500 MG TAB PO SCH (11:00)
[2023-09-16] MEDS ORDERED: CEFDINIR 300 MG CAP PO SCH (11:00)
--- NOTE | 2023-09-16 11:06 | P.PN ---
Subjective Progress Note Date: 09/16/23 This is a very pleasant 78-year-old female patient with a known history of coronary disease with previous stent placement x 2, diabetes mellitus, hypothyroidism, hypertension, hyperlipidemia, former smoker of 35 years at 1 pack/day however quit 25 years ago. 4 to 5 days ago she developed increasing shortness of breath, poor appetite. No real cough or congestion. No fever or chills. No hemoptysis. She has had a poor appetite. She presented here to the emergency room yesterday. Chest x-ray revealed prominent focal opacity of the right upper lobe, possible pneumonia. Additional small right pleural effusion. CT angiogram revealed no evidence of pulmonary embolism. There is a right perihilar soft tissue fullness which extends somewhat towards the periphery of the right lung apex. Findings suspicious for neoplasm. There is a patchy right upper lobe airspace opacity possibly postobstructive in infection/atelectasis from obstructing right perihilar mass. There is a moderate right pleural effusion. Possible malignancy within the differential. White count 12.7. Hemoglobin 12.5. Platelets 258. INR 0.9. Sodium 134. Potassium 3.6. Bicarb 25. BUN 11. Creatinine 0.66. Glucose 155. Troponins were negative x 3. Viral screen was negative. She is seen today in consultation on the regular medical floor. She is currently sitting up in bed. Awake and alert in no acute distress. She continues with some shortness of breath with conversation. Shortness of breath on exertion. She is maintaining O2 saturation 2 L/min per nasal cannula. She is afebrile. Hemodynamically stable. The patient is seen today September 16, 2023 in follow-up on the regular medical floor. She is up ambulating in her room. Awake and alert in no acute distress. Maintaining good O2 saturations in the 90s on 2 L/min per nasal cannula. She has normal staying at 20 mph. She continues on ceftriaxone and azithromycin. Her procalcitonin is negative at 0.06. She did undergo a thoracentesis yester day with 1350 dark cloudy yellow fluid removed. Fluid analysis reveals an exudate with a total protein of 3.6 and an LDH of 626. Cytology pending. Follow-up chest x-ray revealed decreased right pleural effusion and no evidence of pneumothorax. Cultures revealing no growth. White count 8.6. Hemoglobin 11.4. Platelets 227. Sodium 137. Potassium 3.9. Bicarb 27. BUN 12. Creatinine 0.57. Glucose 141. She is afebrile. Hemodynamically stable. Objective - Vital Signs Vital signs: Vital Signs Temp 98.2 F 09/16/23 07:48 Pulse 83 09/16/23 07:48 Resp 17 09/16/23 07:48 BP 119/73 09/16/23 07:48 Pulse Ox 99 09/16/23 09:19 FiO2 Intake & Output 09/15/23 09/16/23 09/16/23 18:59 06:59 18:59 Intake Total 900 120 Balance 900 120 Intake: Intake, IV Titration 900 Amount Sodium Chloride 0.9% 1, 900 000 ml @ 75 mls/hr IV . [id number] [facility] Rx#:[id number] Oral 120 Other: Voiding Method Toilet Toilet Toilet # Voids 2 1 - Exam GENERAL EXAM: Alert, pleasant 78-year-old female, on 2 L nasal cannula, ambulating in her room, comfortable in no apparent distress. HEAD: Normocephalic. EYES: Normal reaction of pupils, equal size. NOSE: Clear with pink turbinates. THROAT: No erythema or exudates. NECK: No masses, no JVD. CHEST: No chest wall deformity. LUNGS: Equal air entry with diminished breath sounds in the right lung base. CVS: S1 and S2 normal with no audible murmur, regular rhythm. ABDOMEN: No hepatosplenomegaly, normal bowel sounds, no guarding or rigidity. SPINE: No scoliosis or deformity SKIN: No rashes CENTRAL NERVOUS SYSTEM: No focal deficits, tone is normal in all 4 extremities. EXTREMITIES: There is no peripheral edema. No clubbing, no cyanosis. Peripheral pulses are intact. - Labs CBC & Chem 7: 09/16/23 07:43 09/16/23 07:43 Labs: Abnormal Lab Results - Last 24 Hours (Table) 09/15/23 09/15/23 09/15/23 Range/Units 11:55 15:15 17:43 Glucose (74-99) mg/dL POC Glucose (mg/dL) 155 H 209 H (70-110) mg/dL Fluid Appearance Cloudy A (Clear) 02/02/24 02/03/24 02/03/24 Range/Units 20:08 07:33 07:43 Glucose 129 H (74-99) mg/dL POC Glucose (mg/dL) 152 H 141 H (70-110) mg/dL Fluid Appearance (Clear) Microbiology - Last 24 Hours (Table) 09/14/23 19:43 Blood Culture - Preliminary Blood 09/14/23 19:28 Blood Culture - Preliminary Blood Assessment and Plan Assessment: Acute hypoxemic respiratory failure secondary to suspected postobstructive pneumonia secondary to to a right hilar mass. Procalcitonin negative at 0.06 Right pleural effusion secondary to above, s/p thoracentesis with 1350 turbid dark yellow fluid removed. Exudate. Protein 3.6. LDH 626. History of 35 years of smoking at 1 pack/day however quit 25 years ago History of coronary disease with stent placement x 2 Diabetes mellitus Hypothyroidism Hypertension Hyperlipidemia Plan: The patient was seen and evaluated Chest x-ray, labs and medications reviewed Thoracentesis performed yesterday Fluid positive as exudate, cytology pending Procalcitonin within normal limits Discontinue ceftriaxone and azithromycin May require bronchoscopy with biopsies if fluid cytology negative We will continue to follow This patient was seen independently by the pulmonary nurse practitioner addr jessica pulmonary issues I have personally seen and examined the patient, performed the documentation and the assessment and plan as written. Number of minutes spent on the visit: 24.
[2023-09-16 12:04] LABS: Glucose,Whole Blood 210 mg/dL (70-110)
--- NOTE | 2023-09-16 14:11 | P.PN ---
Subjective Progress Note Date: 09/16/23 * 78-year-old patient with past medical history significant for diabetes mellitus, hyperlipidemia hypertension coronary artery disease history of PCI, degenerative disease with low back pain, carotid artery stenosis with left carotid artery stent in place presents to the emergency department with complaints of shortness of breath, and chest pain. Patient states her symptom onset was 5 days ago when she started having difficulty in breathing. This was associated with sharp chest pain that was affecting left side. Patient states her shortness of breath got worse with exertion. Patient denies associ ated fever, chills, nausea, vomiting, back pain * Workup initiated in the ER included WBC count of 12.7, hemoglobin of 12.5 platelet count of 250 * Serum chemistry showed sodium 134 potassium 3.6 BUN 11 creatinine 0.66 glucose 233 protein of 8.3 troponin within normal limits * Patient tested negative for influenza COVID and RSV * Chest x-ray obtained in ER raise suspicion for focal opacity in the right upper lobe * CT angio chest was obtained which showed right perihilar soft tissue fullness that extend to the right lung apex suspicion for neoplasm, right upper lobe opacity noted, significant amount of pleural effusion was noted in right lung * Patient was admitted to medical floor with consultation to pulmonary medicine. Treated for new onset lung mass as well as postobstructive pneumonia * 09/16/2023: Patient seen and evaluated bedside, on evaluation patient states she does have shortness of breath on exertion, status post thoracentesis right lung 1350 mL of fluid removed, fluid exudate on LDH criteria. Pulmonary medicine following antibiotics discontinued pro-calcitonin within normal kwan its WBC count within normal limits REVIEW OF SYSTEMS: Cough, shortness of breath, weakness, chest pain IMPROVED CONSTITUTIONAL: No fever, no malaise, no fatigue. HEENT: No recent visual problems or hearing problems. Denied any sore throat. CARDIOVASCULAR: No chest pain, orthopnea, PND, no palpitations, no syncope. PULMONARY: Cough, shortness of breath, weakness, chest pain improved GASTROINTESTINAL: No diarrhea, no nausea, no vomiting, no abdominal pain. NEUROLOGICAL: No headaches, no weakness, no numbness. HEMATOLOGICAL: Denies any bleeding or petechiae. GENITOURINARY: Denies any burning micturition, frequency, or urgency. MUSCULOSKELETAL/RHEUMATOLOGICAL: Denies any joint pain, swelling, or any muscle pain. ENDOCRINE: Denies any polyuria or polydipsia. PHYSICAL EXAMINATION: GENERAL: The patient is alert and oriented x3, nasal cannula in place HEENT: Pupils are round and equally reacting to light. EOMI. CARDIOVASCULAR: S1 and S2 present. No murmurs, rubs, or gallops. PULMONARY: Improved air entry right lower lobe, no use assessing muscle ABDOMEN: Soft, nontender, nondistended, normoactive bowel sounds. No palpable organomegaly. MUSCULOSKELETAL: No joint swelling or deformity. EXTREMITIES: No cyanosis, clubbing, or pedal edema. NEUROLOGICAL: Gross neurological examination did not reveal any focal deficits. Objective - Vital Signs Vital signs: Vital Signs Temp 98.2 F 09/16/23 07:48 Pulse 83 09/16/23 07:48 Resp 17 09/16/23 07:48 BP 119/73 09/16/23 07:48 Pulse Ox 99 09/16/23 09:19 FiO2 Intake & Output 09/15/23 09/16/23 09/16/23 18:59 06:59 18:59 Intake Total 900 120 Balance 900 120 Intake: Intake, IV Titration 900 Amount Sodium Chloride 0.9% 1, 900 000 ml @ 75 mls/hr IV . [id number] [facility] Rx#:[id number] Oral 120 Other: Voiding Method Toilet Toilet Toilet # Voids 2 1 - Labs CBC & Chem 7: 09/16/23 07:43 09/16/23 07:43 Labs: Abnormal Lab Results - Last 24 Hours (Table) 09/15/23 09/15/23 09/15/23 Range/Units 15:15 17:43 20:08 Glucose (74-99) mg/dL POC Glucose (mg/dL) 209 H 152 H (70-110) mg/dL Fluid Appearance Cloudy A (Clear) 09/16/23 09/16/23 09/16/23 Range/Units 07:33 07:43 12:01 Glucose 129 H (74-99) mg/dL POC Glucose (mg/dL) 141 H 210 H (70-110) mg/dL Fluid Appearance (Clear) Microbiology - Last 24 Hours (Table) 09/14/23 19:43 Blood Culture - Preliminary Blood 09/14/23 19:28 Blood Culture - Preliminary Blood Assessment and Plan Assessment: Assessment and plan * Right perihilar mass rule out neoplasm * Postobstructive pneumonia ruled out * Moderate right sided pleural effusion * Cholelithiasis incidental finding * Diabetes mellitus type 2 * History of coronary artery disease * Carotid artery disease * History of hypertension * In regards to perihilar mass, pulmonary medicine consulted CT angio chest reviewed, continue breathing treatments as needed patient has unilateral effusion, status post thoracentesis * In regards to postobstructive pneumonia ruled out was on Rocephin and azithromycin , calcitonin negative, ruled out pneumonia. Continue to monitor off antibiotics * In regards to diabetes mellitus Accu-Cheks ACHS continue correctional insulin continue patient on Januvia and linagliptin * In regards to history of hypertension continue losartan, continue amlodipine * In regards to history of coronary artery disease continue aspirin, Lipitor, bisoprolol * CODE STATUS is full code Time with Patient: Greater than 30
[2023-09-16] MEDS: BISOPROLOL-HCTZ 2.5-6.25 MG 1 EACH TAB PO SCH (16:24)
[2023-09-16] MEDS: LOSARTAN 50 MG TAB PO SCH (16:24)
[2023-09-16] MEDS: CHOLECALCIFEROL 25 MCG (1000 IU) TABLET PO SCH (16:25)
[2023-09-16 17:26] LABS: Glucose,Whole Blood 165 mg/dL (70-110)
[2023-09-16 20:11] LABS: Glucose,Whole Blood 170 mg/dL (70-110)
[2023-09-16] MEDS: ATORVASTATIN 40 MG TAB PO SCH (20:59)
[2023-09-16] MEDS: ASPIRIN 325 MG TAB PO SCH (20:59)
[2023-09-17] MEDS: HYDROcodone/APAP 5-325MG 1 EACH TAB PO PRN ×2 (07:48→13:46)
[2023-09-17] MEDS: ENOXAPARIN 40 MG/0.4 ML SYRINGE SQ SCH (07:49)
[2023-09-17] MEDS: LIDOCAINE 4% PATCH TOPICAL SCH (07:50)
[2023-09-17] MEDS: LEVOTHYROXINE 125 MCG TAB PO SCH (07:51)
[2023-09-17] MEDS: amLODIPine 10 MG TAB PO SCH (07:51)
[2023-09-17] MEDS: LINAGLIPTIN 5 MG TABLET PO SCH (07:51)
[2023-09-17] MEDS: guaiFENesin 600 MG TABLET.ER PO SCH (07:51)
[2023-09-17 07:57] LABS: Glucose,Whole Blood 119 mg/dL (70-110)
[2023-09-17] MEDS: INSULIN ASPART (NovoLOG) 100 UNIT/ML VIAL SQ SCH ×2 (07:59→13:16)
--- NOTE | 2023-09-17 08:20 | P.PN ---
Subjective Progress Note Date: 09/17/23 This is a very pleasant 78-year-old female patient with a known history of coronary disease with previous stent placement x 2, diabetes mellitus, hypothyroidism, hypertension, hyperlipidemia, former smoker of 35 years at 1 pack/day however quit 25 years ago. 4 to 5 days ago she developed increasing shortness of breath, poor appetite. No real cough or congestion. No fever or chills. No hemoptysis. She has had a poor appetite. She presented here to the emergency room yesterday. Chest x-ray revealed prominent focal opacity of the right upper lobe, possible pneumonia. Additional small right pleural effusion. CT angiogram revealed no evidence of pulmonary embolism. There is a right perihilar soft tissue fullness which extends somewhat towards the periphery of the right lung apex. Findings suspicious for neoplasm. There is a patchy right upper lobe airspace opacity possibly postobstructive in infection/atelectasis from obstructing right perihilar mass. There is a moderate right pleural effusion. Possible malignancy within the differential. White count 12.7. Hemoglobin 12.5. Platelets 258. INR 0.9. Sodium 134. Potassium 3.6. Bicarb 25. BUN 11. Creatinine 0.66. Glucose 155. Troponins were negative x 3. Viral screen was negative. She is seen today in consultation on the regular medical floor. She is currently sitting up in bed. Awake and alert in no acute distress. She continues with some shortness of breath with conversation. Shortness of breath on exertion. She is maintaining O2 saturation 2 L/min per nasal cannula. She is afebrile. Hemodynamically stable. The patient is seen today September 16, 2023 in follow-up on the regular medical floor. She is up ambulating in her room. Awake and alert in no acute distress. Maintaining good O2 saturations in the 90s on 2 L/min per nasal cannula. She has normal staying at 20 mph. She continues on ceftriaxone and azithromycin. Her procalcitonin is negative at 0.06. She did undergo a thoracentesis yester day with 1350 dark cloudy yellow fluid removed. Fluid analysis reveals an exudate with a total protein of 3.6 and an LDH of 626. Cytology pending. Follow-up chest x-ray revealed decreased right pleural effusion and no evidence of pneumothorax. Cultures revealing no growth. White count 8.6. Hemoglobin 11.4. Platelets 227. Sodium 137. Potassium 3.9. Bicarb 27. BUN 12. Creatinine 0.57. Glucose 141. She is afebrile. Hemodynamically stable. The patient is seen today September 17, 2023 and follow-up on the regular medical floor. She is resting comfortably in bed. Awake and alert in no acute distress. Maintaining good O2 saturations in the 90s on room air. She has been afebrile. Hemodynamically stable. She denies any worsening shortness of breath, cough or congestion. Blood cultures revealed no growth. Pleural fluid cultures revealing no growth. Fluid is exudate. Cytology pending. Blood sugar 119. Remains on Lovenox for DVT prophylaxis. Objective - Vital Signs Vital signs: Vital Signs Temp 98.5 F 09/17/23 02:00 Pulse 95 09/17/23 02:00 Resp 16 09/17/23 02:00 BP 132/75 09/17/23 02:00 Pulse Ox 95 09/17/23 02:00 FiO2 Intake & Output 09/16/23 09/17/23 09/17/23 18:59 06:59 18:59 Intake Total 860 Balance 860 Intake: Oral 860 Other: Voiding Method Toilet Toilet # Voids 3 3 - Exam GENERAL EXAM: Alert, pleasant 78-year-old female, on room air, resting in bed, comfortable in no apparent distress. HEAD: Normocephalic. EYES: Normal reaction of pupils, equal size. NOSE: Clear with pink turbinates. THROAT: No erythema or exudates. NECK: No masses, no JVD. CHEST: No chest wall deformity. LUNGS: Equal air entry with diminished breath sounds in the right lung base. CVS: S1 and S2 normal with no audible murmur, regular rhythm. ABDOMEN: No hepatosplenomegaly, normal bowel sounds, no guarding or rigidity. SPINE: No scoliosis or deformity SKIN: No rashes CENTRAL NERVOUS SYSTEM: No focal deficits, tone is normal in all 4 extremities. EXTREMITIES: There is no peripheral edema. No clubbing, no cyanosis. Peripheral pulses are intact. - Labs CBC & Chem 7: 09/16/23 07:43 09/16/23 07:43 Labs: Abnormal Lab Results - Last 24 Hours (Table) 09/16/23 09/16/23 09/16/23 Range/Units 07:43 12:01 17:23 Glucose 129 H (74-99) mg/dL POC Glucose (mg/dL) 210 H 165 H (70-110) mg/dL 09/16/23 09/17/23 Range/Units 20:10 07:55 Glucose (74-99) mg/dL POC Glucose (mg/dL) 170 H 119 H (70-110) mg/dL Microbiology - Last 24 Hours (Table) 09/14/23 19:43 Blood Culture - Preliminary Blood 09/14/23 19:28 Blood Culture - Preliminary Blood 09/15/23 15:15 Acid Fast Bacilli Smear - Preliminary Thoracic Fluid 09/15/23 15:15 Gram Stain - Preliminary Thoracic Fluid Assessment and Plan Assessment: Acute hypoxemic respiratory failure secondary to suspected postobstructive pneumonia secondary to to a right hilar mass. Procalcitonin negative at 0.06 Right pleural effusion secondary to above, s/p thoracentesis with 1350 turbid dark yellow fluid removed. Exudate. Protein 3.6. LDH 626. History of 35 years of smoking at 1 pack/day however quit 25 years ago History of coronary disease with stent placement x 2 Diabetes mellitus Hypothyroidism Hypertension Hyperlipidemia Plan: The patient was seen and evaluated Labs and medications reviewed Stable and on room air Pleural fluid positive as exudate, cytology pending May require bronchoscopy with biopsies if fluid cytology negative Cleared for discharge from the pulmonary standpoint Follow-up with Dr. Alan in 1 week This patient was seen independently by the pulmonary nurse practitioner addressing pulmonary issues I have personally seen and examined the patient, performed the documentation and the assessment and plan as written. Number of minutes spent on the visit: 22.
[2023-09-17 12:24] LABS: Glucose,Whole Blood 181 mg/dL (70-110)
--- NOTE | 2023-09-17 12:29 | P.DS ---
Providers Date of admission: 09/14/23 18:50 Expected date of discharge: 09/17/23 Attending physician: Linh Coreas Consults: 09/14/23 18:46 Consult Physician Routine Consulting Provider: Markie Alan Reason/Comments: Lung mass Do you want consulting provider notified?: Yes Primary care physician: Esteban [facility] Course: * 78-year-old patient with past medical history significant for diabetes mellitus, hyperlipidemia hypertension coronary artery disease history of PCI, degenerative disease with low back pain, carotid artery stenosis with left carotid artery stent in place presents to the emergency department with complaints of shortness of breath, and chest pain. Patient states her symptom onset was 5 days ago when she started having difficulty in breathing. This was associated with sharp chest pain that was affecting left side. Patient states her shortness of breath got worse with exertion. Patient denies associated fever, chills, nausea, vomiting, back pain * Workup initiated in the ER included WBC count of 12.7, hemoglobin of 12.5 platelet count of 250 * Serum chemistry showed sodium 134 potassium 3.6 BUN 11 creatinine 0.66 glucose 233 protein of 8.3 troponin within normal limits * Patient tested negative for influenza COVID and RSV * Chest x-ray obtained in ER raise suspicion for focal opacity in the right upper lobe * CT angio chest was obtained which showed right perihilar soft tissue fullness that extend to the right lung apex suspicion for neoplasm, right upper lobe opacity noted, significant amount of pleural effusion was noted in right lung * Patient was admitted to medical floor with consultation to pulmonary medicine. Treated for new onset lung mass as well as postobstructive pneumonia * 09/16/2023: Patient seen and evaluated bedside, on evaluation patient states she does have shortness of breath on exertion, status post thoracentesis right lung 1350 mL of fluid removed, fluid exudate on LDH criteria. Pulmonary medicine following antibiotics discontinued pro-calcitonin within normal limits WBC count within normal limits * 09/17/2023 : Patient seen and evaluated bedside, patient was seen by pulmonary medicine and cleared for discharge. All questions answered cytology still pending patient requested to follow-up with pulmonology outpatient for cytology results. Patient remains on room air. Patient ambulated in the hallway. Patient given albuterol inhaler REVIEW OF SYSTEMS:, shortness of breath intermittent, weakness, chest pain resolved CONSTITUTIONAL: No fever, no malaise, no fatigue. HEENT: No recent visual problems or hearing problems. Denied any sore throat. CARDIOVASCULAR: No chest pain, orthopnea, PND, no palpitations, no syncope. PULMONARY: shortness of breath intermittent, weakness, chest pain resolved GASTROINTESTINAL: No diarrhea, no nausea, no vomiting, no abdominal pain. NEUROLOGICAL: No headaches, no weakness, no numbness. HEMATOLOGICAL: Denies any bleeding or petechiae. GENITOURINARY: Denies any burning micturition, frequency, or urgency. MUSCULOSKELETAL/RHEUMATOLOGICAL: Denies any joint pain, swelling, or any muscle pain. ENDOCRINE: Denies any polyuria or polydipsia. PHYSICAL EXAMINATION: GENERAL: The patient is alert and oriented x3, nasal cannula removed HEENT: Pupils are round and equally reacting to light. EOMI. CARDIOVASCULAR: S1 and S2 present. No murmurs, rubs, or gallops. PULMONARY: Improved air entry right lower lobe, no use assessing muscle ABDOMEN: Soft, nontender, nondistended, normoactive bowel sounds. No palpable organomegaly. MUSCULOSKELETAL: No joint swelling or deformity. EXTREMITIES: No cyanosis, clubbing, or pedal edema. NEUROLOGICAL: Gross neurological examination did not reveal any focal deficits. Assessment and plan * Right perihilar mass rule out neoplasm * Postobstructive pneumonia ruled out * Moderate right sided pleural effusion s/p thoracentesis * Cholelithiasis incidental finding * Diabetes mellitus type 2 * History of coronary artery disease * Carotid artery disease * History of hypertension * In regards to perihilar mass, pulmonary medicine consulted CT angio chest reviewed, continue albuterol as needed patient has unilateral effusion, status post thoracentesis, 1350 mL fluid removed exudate in correct * In regards to postobstructive pneumonia ruled out , was on Rocephin and azithromycin , calcitonin negative, ruled out pneumonia. * In regards to diabetes mellitus Accu-Cheks ACHS continue correctional insulin continue patient on Januvia and linagliptin * In regards to history of hypertension continue losartan, continue amlodipine * In regards to history of coronary artery disease continue aspirin, Lipitor, bisoprolol * Outpatient follow-up with pulmonary medicine Patient Condition at Discharge: Fair Plan - Discharge Summary New Discharge Prescriptions: New Albuterol Inhaler [Ventolin Hfa Inhaler] 1 puff INHALATION QID PRN #8 gm PRN Reason: Shortness Of Breath Or Wheezing Continue amLODIPine [Norvasc] 10 mg PO DAILY@0800 Losartan [Cozaar] 50 mg PO DAILY@1500 Bisoprolol-Hctz 2.5-6.25 mg [Ziac 2.5-6.25 MG] 1 tab PO DAILY@1500 Atorvastatin [Lipitor] 40 mg PO HS Aspirin 325 mg PO HS sitaGLIPtin [Januvia] 50 mg PO DAILY@0800 Levothyroxine Sodium [Synthroid] 125 mcg PO DAILY@0800 Cholecalciferol [Vitamin D3 (25 Mcg = 1000 Iu)] 50 mcg PO DAILY@1500 Discharge Medication List Aspirin 325 mg PO HS 09/16/15 [History] Atorvastatin [Lipitor] 40 mg PO HS 09/16/15 [History] Bisoprolol-Hctz 2.5-6.25 mg [Ziac 2.5-6.25 MG] 1 tab PO DAILY@1500 09/16/15 [History] Losartan [Cozaar] 50 mg PO DAILY@1500 09/16/15 [History] amLODIPine [Norvasc] 10 mg PO DAILY@0800 09/16/15 [History] Cholecalciferol [Vitamin D3 (25 Mcg = 1000 Iu)] 50 mcg PO DAILY@1500 09/14/23 [History] Levothyroxine Sodium [Synthroid] 125 mcg PO DAILY@0800 09/14/23 [History] sitaGLIPtin [Januvia] 50 mg PO DAILY@0800 09/14/23 [History] Albuterol Inhaler [Ventolin Hfa Inhaler] 1 puff INHALATION QID PRN #8 gm 09/17/23 [Rx] Follow up Appointment(s)/Referral(s): Markie Alan DO [Doctor of Osteopathic Medicine] - 1 Week Esteban Grant DO [Primary Care Provider] - 1-2 days Discharge/Stand Alone Forms: Who Do I Call?, Community Resources, Help In The Home Discharge Disposition: HOME SELF-CARE
[2023-09-17 13:25] VITALS: BP 148/74; PULSE 87; RESP 20; TEMP 98.8
--- NOTE | 2023-09-18 12:20 | US ---
EXAMINATION TYPE: US chest DATE OF EXAM: 09/15/2023 Exam done portable COMPARISON: NONE CLINICAL INDICATION: Female, 78 years old with history of Right pleural effusion; TECHNIQUE: Targeted ultrasound of the posterior lower right hemithorax EXAM MEASUREMENTS: Right Pleural Effusion pocket size: 15.6 cm Right skin surface to fluid distance: 2.9 cm Right side marked for possible thoracentesis outside the dept. Pulmonologists are able to review the images in the patient?s EMR. IMPRESSIONS: As above
[2023-09-18 16:34] LABS: Total Protein 6.7 g/dL (6.2-8.2)
== END 2023-09-17 13:55 | disposition home or self-care (01) ==
LOC: EC 13:49 → 5NMEDONC 18:50
PROVIDERS: ADMIT Hospitalist; ATTEND Hospitalist
DX: J96.01 Acute respiratory failure with hypoxia (principal); J90 Pleural effusion, not elsewhere classified; I25.10 Atherosclerotic heart disease of native coronary artery without angina pectoris; E11.9 Type 2 diabetes mellitus without complications; E78.5 Hyperlipidemia, unspecified; I10 Essential (primary) hypertension; E03.9 Hypothyroidism, unspecified; K80.20 Calculus of gallbladder without cholecystitis without obstruction; Z20.822 Contact with and (suspected) exposure to COVID-19; Z87.891 Personal history of nicotine dependence; Z95.5 Presence of coronary angioplasty implant and graft; Z79.82 Long term (current) use of aspirin; Z79.84 Long term (current) use of oral hypoglycemic drugs; Z79.890 Hormone replacement therapy; Z79.899 Other long term (current) drug therapy; Z88.2 Allergy status to sulfonamides; Z88.6 Allergy status to analgesic agent
CPT/HCPCS: 96361; 96366 ×2; 96372 ×3; 96365; 96367; 96375; 99285; 36415; 94760 ×3; 93005; 80053; 80048; 87449; 89050; 83605; 83615 ×2; 84155; 84484 ×2; 85025 ×2; 85610; 85730; 87040; 87070; 87205; 87116; 87102; 87206; 82945; 84157; 83036; 84145; 87636; 71045; 71046 ×2; 76604; 71275; 32555; G0378 ×4; J0456; J0696 ×2; J1650 ×2; J1885; Q9967

== ENCOUNTER 2023-09-19 16:35 | Emergency (ER) | payer MEDICARE ==
[2023-09-19 16:55] VITALS: TEMP 98.1
--- NOTE | 2023-09-19 17:18 | ED ---
General Adult HPI - General Chief complaint: Shortness of Breath Stated complaint: SOB Time Seen by Provider: 09/19/23 16:58 Source: patient Mode of arrival: wheelchair Limitations: no limitations - History of Present Illness Initial comments: Dictation was produced using The [employer] dictation software. please excuse any grammatical, word or spelling errors. Chief Complaint: 78-year-old female presents with dyspnea History of Present Illness: Patient 78-year-old female she was discharged from the hospital 2 days ago. She was seen and admitted for chief complaint of shortness of breath. Since being discharged she states that she is still short of breath. Today she felt like she could not catch her breath decided come back to the emergency department. Patient and her daughter were not given explanation as to why patient was short of breath. She did have a thoracentesis on the right side. Denies any chest pain. No fever chills or night sweats. The ROS documented in this emergency department record has been reviewed and confirmed by me. Those systems with pertinent positive or negative responses have been documented in the HPI. All other systems are other negative and/or noncontributory. - Related Data Home Medications Medication Instructions Recorded Confirmed Aspirin 325 mg PO HS 09/16/15 09/19/23 Atorvastatin [Lipitor] 40 mg PO HS 09/16/15 09/19/23 Bisoprolol-Hctz 2.5-6.25 mg [Ziac 1 tab PO DAILY@1500 09/16/15 09/19/23 2.5-6.25 MG] Losartan [Cozaar] 50 mg PO DAILY@1500 09/16/15 09/19/23 amLODIPine [Norvasc] 10 mg PO DAILY@0809/16/15 09/19/23 Cholecalciferol [Vitamin D3 (25 50 mcg PO DAILY@1500 09/14/23 09/19/23 Mcg = 1000 Iu)] Levothyroxine Sodium [Synthroid] 125 mcg PO DAILY@79909/14/23 09/19/23 sitaGLIPtin [Januvia] 50 mg PO DAILY@79909/14/23 09/19/23 Albuterol Inhaler [Ventolin Hfa 1 puff INHALATION RT-QID PRN 09/19/23 09/19/23 Inhaler] Allergies Allergy/AdvReac Type Severity Reaction Status Date / Time ibuprofen Allergy Itching Verified 09/19/23 16:56 Sulfa (Sulfonamide Allergy Rash/Hives Verified 09/19/23 17:58 Antibiotics) Review of Systems ROS Statement: Those systems with pertinent positive or pertinent negative responses have been documented in the HPI. ROS Other: All systems not noted in ROS Statement are negative. Past Medical History Past Medical History: Coronary Artery Disease (CAD), Diabetes Mellitus, Hyperlipidemia, Hypertension, Thyroid Disorder History of Any Multi-Drug Resistant Organisms: None Reported Past Surgical History: Heart Catheterization With Stent, Hysterectomy, Tonsillectomy Additional Past Surgical History / Comment(s): HEART STENT X2, SIL CAROTIDENDART ECTOMY, SIL CATARACTS Past Anesthesia/Blood Transfusion Reactions: No Reported Reaction Date of Last Stent Placement:: UNKNOWN Past Psychological History: No Psychological Hx Reported Smoking Status: Former smoker Past Alcohol Use History: Rare Past Drug Use History: None Reported - Past Family History Mother Family Medical History: No Reported History General Exam - General Exam Comments Initial Comments: PHYSICAL EXAM: General Impression: Alert and oriented x3, not in acute distress HEENT: Normocephalic atraumatic, extra-ocular movements intact, pupils equal and reactive to light bilaterally, mucous membranes moist. Cardiovascular: Heart regular rate and rhythm Chest: Able to complete full sentences, no retractions, no tachypnea Abdomen: abdomen soft, non-tender, non-distended, no organomegaly Musculoskeletal: Pulses present and equal in all extremities, no peripheral edema Motor: no focal deficits noted Neurological: CN II-XII grossly intact, no focal motor or sensory deficits noted Skin: Intact with no visualized rashes Psych: Normal affect and mood Limitations: no limitations Course Vital Signs 09/19/23 09/19/23 09/19/23 16:48 17:07 18:00 Temperature 98.1 F Pulse Rate 102 H 82 Respiratory 24 24 18 Rate Blood Pressure 112/67 119/96 O2 Sat by Pulse 96 94 L Oximetry Medical Decision Making - Medical Decision Making Was pt. sent in by a medical professional or institution (, PA, HYDRAULIC ASSEMBLER, urgent care, hospital, or halfway...) When possible be specific @ -No Did you speak to anyone other than the patient for history (EMS, parent, family, police, friend...)? What history was obtained from this source @ -No Did you review nursing and triage notes (agree or disagree)? Why? @ -I reviewed and agree with nursing and triage notes Were old charts reviewed (outside hosp., previous admission, EMS record, old EKG, old radiological studies, urgent care reports/EKG's, halfway records)? Report findings @ -Discharge summary from recent admission was reviewed showing patient had a thoracentesis Differential Diagnosis (chest pain, altered mental status, abdominal pain women, abdominal pain men, vaginal bleeding, musculoskeletal, weakness, fever, dyspnea, syncope, headache, dizziness, GI bleed, back pain, seizure, CVA, palpatations, mental health)? @ -Differential Dyspnea: Coronary syndrome, arrhythmia, tamponade, asthma, COPD, pulmonary embolism, pneumonia, pneumothorax, pulmonary effusion, anaphylaxis, diabetic ketoacidosis, flailed chest, pulmonary contusion, diaphragmatic rupture, anemia, neuromuscu lar, this is not meant to be an all-inclusive list. EKG interpreted by me (3pts min.). @ -See above X-rays interpreted by me (1pt min.). @ -Chest x-ray shows no acute processes CT interpreted by me (1pt min.). @ -None done U/S interpreted by me (1pt. min.). @ -None done What testing was considered but not performed or refused? (CT, X-rays, U/S, labs)? Why? @ -None What meds were considered but not given or refused? Why? @ -None Did you discuss the management of the patient with other professionals (professionals i.e. , PA, HYDRAULIC ASSEMBLER, lab, RT, psych nurse, adoption social worker, receptionist/telephone operator, teacher, environmental conservation officer, catalytic case operator)? Give summary @ -No Was smoking cessation discussed for >3mins.? @ -No Was critical care preformed (if so, how long)? @ -No Were there social determinants of health that impacted care today? How? (Homelessness, low income, unemployed, alcoholism, drug addiction, transp ortation, low edu. Level, literacy, decrease access to med. care, [facility], rehab)? @ -No Was there de-escalation of care discussed even if they declined (Discuss DNR or withdrawal of care, Hospice)? DNR status @ -No What co-morbidities impacted this encounter? (DM, HTN, Smoking, COPD, CAD, Cancer, CVA, ARF, Chemo, Hep., AIDS, mental health diagnosis, sleep apnea, morbid obesity)? @ -None Was patient admitted / discharged? Hospital course, mention meds given and route, prescriptions, significant lab abnormalities, going to OR and other pertinent info. @ -78-year-old nondistressed female presents to the ER for chief complaint of dyspnea. She was recently admitted she was discharged few days ago stable medical admission. Patient states that her symptoms have not changed since being discharged. States that she gets these episodes where she feels short of breath. Denies any chest pain. Vital signs are stable. Patient well-appearing at the bedside. Labs imaging unremarkable. Patient has cytology results from recent thoracentesis but are still pending. Disposition options were discussed. Patient agreeable with discharge. There is likely component of anxiety. Patient told to follow-up with machined parts metal sprayer. Undiagnosed new problem with uncertain prognosis? @ -No Drug Therapy requiring intensive monitoring for toxicity (Heparin, Nitro, Insulin, Cardizem)? @ -No Were any procedures done? @ -No Diagnosis/symptom? Acute, or Chronic, or Acute on Chronic? Uncomplicated (with out systemic symptoms) or Complicated (systemic symptoms)? @ -Episodic dyspnea, no high risk features Side effects of treatment? @ -No Exacerbation, Progression, or Severe Exacerbation? @ -No Poses a threat to life or bodily function? How? (Chest pain, [place], [place], pneumonia, PE, COPD, DKA, ARF, appy, cholecystitis, CVA, Diverticulitis, Homicidal, Suicidal, threat to staff... and all critical care pts) @ -No - Lab Data Result diagrams: 09/19/23 17:35 09/19/23 17:35 Lab Results 09/19/23 09/19/23 Range/Units 17:35 17:35 WBC 9.6 (3.8-10.6) k/uL RBC 3.99 (3.80-5.40) m/uL Hgb 11.8 (11.4-16.0) gm/dL Hct 34.7 (34.0-46.0) % MCV 86.9 (80.0-100.0) fL MCH 29.5 (25.0-35.0) pg MCHC 34.0 (31.0-37.0) g/dL RDW 13.4 (11.5-15.5) % Plt Count 232 (150-450) k/uL MPV 6.7 Neutrophils % 74 % Lymphocytes % 16 % Monocytes % 6 % Eosinophils % 2 % Basophils % 1 % Neutrophils # 7.1 (1.3-7.7) k/uL Lymphocytes # 1.6 (1.0-4.8) k/uL Monocytes # 0.5 (0-1.0) k/uL Eosinophils # 0.2 (0-0.7) k/uL Basophils # 0.1 (0-0.2) k/uL Sodium 135 L (137-145) mmol/L Potassium 4.3 (3.5-5.1) mmol/L Chloride 100 (98-107) mmol/L Carbon Dioxide 30 (22-30) mmol/L Anion Gap 5 mmol/L BUN 18 H (7-17) mg/dL Creatinine 0.52 (0.52-1.04) mg/dL Est GFR (CKD-EPI)AfAm >90 (>60 ml/min/1.73 sqM) Est GFR (CKD-EPI)NonAf >90 (>60 ml/min/1.73 sqM) Glucose 150 H (74-99) mg/dL Calcium 9.8 (8.4-10.2) mg/dL Disposition Clinical Impression: Dyspnea Disposition: HOME SELF-CARE Condition: Fair Instructions (If sedation given, give patient instructions): Anxiolysis in Adults (ED) Is patient prescribed a controlled substance at d/c from ED?: No Referrals: Esteban Grant DO [Primary Care Provider] - 1-2 days Time of Disposition: 18:55
--- NOTE | 2023-09-19 17:23 | XR ---
EXAMINATION TYPE: XR chest 2V DATE OF EXAM: 09/19/2023 COMPARISON: 09/15/23 HISTORY: Shortness of breath TECHNIQUE: Frontal and lateral views of the chest are obtained. FINDINGS: Scattered senescent parenchymal changes noted. Hyperinflation compatible with COPD. Right suprahilar infiltrate persists. Correlate for pneumonia. Follow-up until resolution is recommen ded however. Small right basilar effusion and linear atelectasis. Heart size is stable. Mediastinal structures are stable and grossly unremarkable. No evidence for hilar prominence. Degenerative changes dorsal spine. IMPRESSION: 1. Right suprahilar infiltrate persists. Correlate for pneumonia. Follow-up until resolution is recom mended however. Small right basilar effusion and linear atelectasis.
[2023-09-19 18:03] LABS: Basophils # (A) 0.1 k/uL (0-0.2); Basophils % (A) 1 %; Eosinophils # (A) 0.2 k/uL (0-0.7); Eosinophils % (A) 2 %; HCT 34.7 % (34.0-46.0); HGB 11.8 gm/dL (11.4-16.0); Lymphocytes # (A) 1.6 k/uL (1.0-4.8); Lymphocytes % (A) 16 %; MCH 29.5 pg (25.0-35.0); MCV 86.9 fL (80.0-100.0); Mean Platelet Volume 6.7; Monocytes # (A) 0.5 k/uL (0-1.0); Monocytes % (A) 6 %; Neutrophils # (A) 7.1 k/uL (1.3-7.7); Neutrophils % (A) 74 %; Platelet Count 232 k/uL (150-450); RBC 3.99 m/uL (3.80-5.40); RDW 13.4 % (11.5-15.5); WBC 9.6 k/uL (3.8-10.6)
[2023-09-19 18:11] LABS: African American GFR (CKD) >90 (>60 ml/min/1.73 sqM); Anion Gap 5 mmol/L; Blood Urea Nitrogen 18 mg/dL (7-17); Calcium 9.8 mg/dL (8.4-10.2); Carbon Dioxide 30 mmol/L (22-30); Chloride 100 mmol/L (98-107); Glucose 150 mg/dL (74-99); Non-African American GFR(CKD) >90 (>60 ml/min/1.73 sqM); Sodium 135 mmol/L (137-145)
[2023-09-19 18:21] LABS: Potassium 4.3 mmol/L (3.5-5.1)
[2023-09-19] MEDS ORDERED: ALPRAZolam 0.25 MG TAB PO STA (18:52)
[2023-09-19 19:06] VITALS: PULSE 82
[2023-09-19 19:33] VITALS: BP 151/73; RESP 22
== END 2023-09-19 19:16 | disposition home or self-care (01) ==
LOC: EC 16:35
DX: R06.02 Shortness of breath (principal); E11.9 Type 2 diabetes mellitus without complications; I10 Essential (primary) hypertension; I25.10 Atherosclerotic heart disease of native coronary artery without angina pectoris; E78.5 Hyperlipidemia, unspecified; E07.9 Disorder of thyroid, unspecified; Z79.84 Long term (current) use of oral hypoglycemic drugs; Z79.890 Hormone replacement therapy; Z79.899 Other long term (current) drug therapy; Z88.2 Allergy status to sulfonamides; Z88.6 Allergy status to analgesic agent; Z95.5 Presence of coronary angioplasty implant and graft; Z87.891 Personal history of nicotine dependence
CPT/HCPCS: 36415; 71046; 80048; 85025; 99285

== ENCOUNTER 2023-09-22 08:27 | Emergency (ER) | payer MEDICARE ==
--- NOTE | 2023-09-22 09:10 | ED ---
General Adult HPI - General Chief complaint: Shortness of Breath Stated complaint: Chest pain Time Seen by Provider: 09/22/23 08:30 Source: patient, RN notes reviewed, old records reviewed Mode of arrival: ambulatory Limitations: no limitations - History of Present Illness Initial comments: This is a 78-year-old female who presents to the emergency department complaining of feeling short of breath at night. Patient states it comes and goes. Patient states she been told it is anxiety and she was given a prescription for anxiety medication which she has not yet picked up. Patient states it occurred again last night so she went to come and get checked out. Patient states in the past she has had fluid on her lungs and needed a thoracentesis. Patient wonders if that was going on today. Patient denies any anterior chest pain or discomfort. Patient denies any nausea vomiting diarrhea. Patient has any fever chills or cough. Patient has a increased welling to the legs or calf tenderness. - Related Data Home Medications Medication Instructions Recorded Confirmed Aspirin 325 mg PO HS 09/16/15 09/22/23 Atorvastatin [Lipitor] 40 mg PO HS 09/16/15 09/22/23 Bisoprolol-Hctz 2.5-6.25 mg [Ziac 1 tab PO DAILY@1500 09/16/15 09/22/23 2.5-6.25 MG] Losartan [Cozaar] 50 mg PO DAILY@1500 09/16/15 09/22/23 amLODIPine [Norvasc] 10 mg PO DAILY@0800 09/16/15 09/22/23 Cholecalciferol [Vitamin D3 (25 50 mcg PO DAILY@1500 09/14/23 09/22/23 Mcg = 1000 Iu)] Levothyroxine Sodium [Synthroid] 125 mcg PO DAILY@0809/14/23 09/22/23 sitaGLIPtin [Januvia] 50 mg PO DAILY@79909/14/23 09/22/23 Albuterol Inhaler [Ventolin Hfa 1 puff INHALATION RT-QID PRN 09/19/23 09/22/23 Inhaler] Escitalopram [Lexapro] 10 mg PO DIRECTED 09/22/23 09/22/23 Allergies Allergy/AdvReac Type Severity Reaction Status Date / Time ibuprofen Allergy Itching Verified 09/22/23 08:36 Sulfa (Sulfonamide Allergy Rash/Hives Verified 09/22/23 08:36 Antibiotics) Review of Systems ROS Statement: Those systems with pertinent positive or pertinent negative responses have been documented in the HPI. ROS Other: All systems not noted in ROS Statement are negative. Past Medical History Past Medical History: Coronary Artery Disease (CAD), Diabetes Mellitus, Hyperlipidemia, Hypertension, Thyroid Disorder History of Any Multi-Drug Resistant Organisms: None Reported Past Surgical History: Heart Catheterization With Stent, Hysterectomy, Tonsillectomy Additional Past Surgical History / Comment(s): HEART STENT X2, SIL CAROTIDENDARTECTOMY, SIL CATARACTS Past Anesthesia/Blood Transfusion Reactions: No Reported Reaction Date of Last Stent Placement:: UNKNOWN Past Psychological History: No Psychological Hx Reported Smoking Status: Former smoker Past Alcohol Use History: Rare Past Drug Use History: None Reported - Past Family History Mother Family Medical History: No Reported History General Exam - General Exam Comments Initial Comments: GENERAL: Patient is well-developed and well-nourished. Patient is nontoxic and well- hydrated and is in no acute distress. ENT: Neck is soft and supple. No significant lymphadenopathy is noted. Oropharynx is clear. Moist mucous membranes. Neck has full range of motion without eliciting any pain. EYES: The sclera were anicteric and conjunctiva were pink and moist. Extraocular movements were intact and pupils were equal round and reactive to light. Eyelids were unremarkable. PULMONARY: Unlabored respirations. Good breath sounds bilaterally. No audible rales rh onchi or wheezing was noted. CARDIOVASCULAR: There is a regular rate and rhythm without any murmurs gallops or rubs. ABDOMEN: Soft and nontender with normal bowel sounds. SKIN: Skin is clear with no lesions or rashes and otherwise unremarkable. NEUROLOGIC: Patient is alert and oriented x3. Cranial nerves II through XII are grossly intact. Motor and sensory are also intact. Normal speech, volume and content. Symmetrical smile. MUSCULOSKELETAL: Normal extremities with adequate strength and full range of motion. 1+ edema LYMPHATICS: No significant lymphadenopathy is noted PSYCHIATRIC: Patient seems mildly anxious Limitations: no limitations Course Vital Signs 09/22/23 09/22/23 09/22/23 08:29 08:50 09:30 Temperature 99.2 F Pulse Rate 85 78 Respiratory 16 16 16 Rate Blood Pressure 155/74 133/69 O2 Sat by Pulse 98 95 Oximetry Medical Decision Making - Medical Decision Making EKG is interpreted by myself but EKG shows a sinus rhythm at 84 bpm SC interval 180 QRS 114 QT interval is 376 QTc is 417. Patient EKG shows no ST segment ovation or depression. Was pt. sent in by a medical professional or institution ([facility], CHIEF VENDOR QUALITY, urgent care, hospital, or penitentiary...) When possible be specific @ -No Did you speak to anyone other than the patient for history (EMS, parent, family, police, friend...)? What history was obtained from this source @ -No Did you review nursing and triage notes (agree or disagree)? Why? @ -I reviewed and agree with nursing and triage notes Were old charts reviewed (outside hosp., previous admission, EMS record, old EKG, old radiological studies, urgent care reports/EKG's, penitentiary records)? Report findings @ -I reviewed old charts and old lab work on this patient Differential Diagnosis (chest pain, altered mental status, abdominal pain women, abdominal pain men, vaginal bleeding, weakness, fever, dyspnea, syncope, headache, dizziness, GI bleed, back pain, seizure, CVA, palpatations, mental health, musculoskeletal)? @ -Differential Dyspnea: Coronary syndrome, arrhythmia, tamponade, asthma, COPD, pulmonary embolism, pneumonia, pneumothorax, pulmonary effusion, anaphylaxis, diabetic ketoacidosis, flailed chest, pulmonary contusion, diaphragmatic rupture, anemia, neuromuscu lar, this is not meant to be an all-inclusive list. EKG interpreted by me (3pts min.). @ -As above X-rays interpreted by me (1pt min.). @ -Chest x-ray is unchanged from previous x-rays CT interpreted by me (1pt min.). @ -None done U/S interpreted by me (1pt. min.). @ -None done What testing was considered but not performed or refused? (CT, X-rays, U/S, labs)? Why? @ -None What meds were considered but not given or refused? Why? @ -None Did you discuss the management of the patient with other professionals (professionals i.e. [facility], CHIEF VENDOR QUALITY, lab, RT, psych nurse, social sciences research scientist, factory worker, teacher, senior escrow officer, piano case maker)? Give summary @ -No Was smoking cessation discussed for >3mins.? @ -No Was critical care preformed (if so, how long)? @ -No Were there social determinants of health that impacted care today? How? (Homelessness, low income, unemployed, alcoholism, drug addiction, transpo rtation, low edu. Level, literacy, decrease access to med. care, [facility], rehab)? @ -No Was there de-escalation of care discussed even if they declined (Discuss DNR or withdrawal of care, Hospice)? DNR status @ -No What co-morbidities impacted this encounter? (DM, HTN, Smoking, COPD, CAD, Cancer, CVA, ARF, Chemo, Hep., AIDS, mental health diagnosis, sleep apnea, morbid obesity)? @ -None Was patient admitted / discharged? Hospital course, mention meds given and route, prescriptions, significant lab abnormalities, going to OR and other pertinent info. @ -Patient was given Ativan in the emergency department feeling considerably better. Patient states she will package pick up her anxiety prescription today. Undiagnosed new problem with uncertain prognosis? @ -No Drug Therapy requiring intensive monitoring for toxicity (Heparin, Nitro, Insulin, Cardizem)? @ -No Were any procedures done? @ -No Diagnosis/symptom? @ -Anxiety Acute, or Chronic, or Acute on Chronic? @ -Acute Uncomplicated (without systemic symptoms) or Complicated (systemic symptoms)? @ -Uncomplicated Side effects of treatment? @ -No Exacerbation, Progression, or Severe Exacerbation? @ -No Poses a threat to life or bodily function? How? (Chest pain, [place], [place], pneumonia, PE, COPD, DKA, ARF, appy, cholecystitis, CVA, Diverticulitis, Homicidal, Suicidal, threat to staff... and all critical care pts) @ -No - Lab Data Result diagrams: 09/22/23 09:04 09/22/23 09:04 Lab Results 09/22/23 09/22/23 09/22/23 Range/Units 09:04 09:04 09:04 WBC 8.0 (3.8-10.6) k/uL RBC 4.14 (3.80-5.40) m/uL Hgb 12.0 (11.4-16.0) gm/dL Hct 35.8 (34.0-46.0) % MCV 86.3 (80.0-100.0) fL MCH 28.9 (25.0-35.0) pg MCHC 33.5 (31.0-37.0) g/dL RDW 13.6 (11.5-15.5) % Plt Count 251 (150-450) k/uL MPV 6.8 Neutrophils % 74 % Lymphocytes % 16 % Monocytes % 5 % Eosinophils % 2 % Basophils % 1 % Neutrophils # 5.9 (1.3-7.7) k/uL Lymphocytes # 1.3 (1.0-4.8) k/uL Monocytes # 0.4 (0-1.0) k/uL Eosinophils # 0.2 (0-0.7) k/uL Basophils # 0.1 (0-0.2) k/uL PT 10.5 (10.0-12.5) sec INR 0.9 (<1.2) APTT 23.1 (22.0-30.0) sec Sodium 134 L (137-145) mmol/L Potassium 4.1 (3.5-5.1) mmol/L Chloride 101 (98-107) mmol/L Carbon Dioxide 27 (22-30) mmol/L Anion Gap 6 mmol/L BUN 12 (7-17) mg/dL Creatinine 0.50 L (0.52-1.04) mg/dL Est GFR (CKD-EPI)AfAm >90 (>60 ml/min/1.73 sqM) Est GFR (CKD-EPI)NonAf >90 (>60 ml/min/1.73 sqM) Glucose 162 H (74-99) mg/dL Plasma Lactic Acid Andrea (0.7-2.0) mmol/L Calcium 9.7 (8.4-10.2) mg/dL Total Bilirubin 0.8 (0.2-1.3) mg/dL AST 30 (14-36) U/L ALT 19 (4-34) U/L Alkaline Phosphatase 74 (38-126) U/L Troponin I (0.000-0.034) ng/mL Total Protein 7.3 (6.3-8.2) g/dL Albumin 4.0 (3.5-5.0) g/dL 09/22/23 09/22/23 Range/Units 09:04 09:04 WBC (3.8-10.6) k/uL RBC (3.80-5.40) m/uL Hgb (11.4-16.0) gm/dL Hct (34.0-46.0) % MCV (80.0-100.0) fL MCH (25.0-35.0) pg MCHC (31.0-37.0) g/dL RDW (11.5-15.5) % Plt Count (150-450) k/uL MPV Neutrophils % % Lymphocytes % % Monocytes % % Eosinophils % % Basophils % % Neutrophils # (1.3-7.7) k/uL Lymphocytes # (1.0-4.8) k/uL Monocytes # (0-1.0) k/uL Eosinophils # (0-0.7) k/uL Basophils # (0-0.2) k/uL PT (10.0-12.5) sec INR (<1.2) APTT (22.0-30.0) sec Sodium (137-145) mmol/L Potassium (3.5-5.1) mmol/L Chloride (98-107) mmol/L Carbon Dioxide (22-30) mmol/L Anion Gap mmol/L BUN (7-17) mg/dL Creatinine (0.52-1.04) mg/dL Est GFR (CKD-EPI)AfAm (>60 ml/min/1.73 sqM) Est GFR (CKD-EPI)NonAf (>60 ml/min/1.73 sqM) Glucose (74-99) mg/dL Plasma Lactic Acid Andrea 1.5 (0.7-2.0) mmol/L Calcium (8.4-10.2) mg/dL Total Bilirubin (0.2-1.3) mg/dL AST (14-36) U/L ALT (4-34) U/L Alkaline Phosphatase (38-126) U/L Troponin I <0.012 (0.000-0.034) ng/mL Total Protein (6.3-8.2) g/dL Albumin (3.5-5.0) g/dL Disposition Clinical Impression: Anxiety Disposition: HOME SELF-CARE Instructions (If sedation given, give patient instructions): Anxiety (ED) Is patient prescribed a controlled substance at d/c from ED?: No Referrals: Esteban Grant DO [Primary Care Provider] - 1-2 days Time of Disposition: 10:31
[2023-09-22] MEDS: LORazepam 2 MG/ML INJ IV STA (09:28)
--- NOTE | 2023-09-22 09:36 | XR ---
EXAMINATION TYPE: XR chest 2V DATE OF EXAM: 09/22/2023 COMPARISON: September 19, 2023 HISTORY: Shortness of breath TECHNIQUE: Frontal and lateral views of the chest are obtained. FINDINGS: Scattered senescent parenchymal changes noted. Hyperinflation compatible with COPD. Persistent right suprahilar infiltrate which may reflect pneumonia. Correlate clinically and progress studies are recommended until resolution. Trace right-sided pleural effusion noted. Heart size is stable. Mediastinal structures are stable and grossly unremarkable. No evidence for hilar prominence. Degenerative changes dorsal spine. IMPRESSION: 1. Persistent right suprahilar infiltrate which may reflect pneumonia. Correlate clinically and progr ess studies are recommended until resolution. Trace right-sided pleural effusion noted.
[2023-09-22 09:46] LABS: ALT 19 U/L (4-34); AST 30 U/L (14-36); African American GFR (CKD) >90 (>60 ml/min/1.73 sqM); Alkaline Phosphatase 74 U/L (38-126); Anion Gap 6 mmol/L; Blood Urea Nitrogen 12 mg/dL (7-17); Calcium 9.7 mg/dL (8.4-10.2); Carbon Dioxide 27 mmol/L (22-30); Chloride 101 mmol/L (98-107); Glucose 162 mg/dL (74-99); Non-African American GFR(CKD) >90 (>60 ml/min/1.73 sqM); Potassium 4.1 mmol/L (3.5-5.1); Sodium 134 mmol/L (137-145); Total Bilirubin 0.8 mg/dL (0.2-1.3); Total Protein 7.3 g/dL (6.3-8.2)
[2023-09-22 10:01] LABS: Basophils # (A) 0.1 k/uL (0-0.2); Basophils % (A) 1 %; Eosinophils # (A) 0.2 k/uL (0-0.7); Eosinophils % (A) 2 %; HCT 35.8 % (34.0-46.0); Lymphocytes # (A) 1.3 k/uL (1.0-4.8); Lymphocytes % (A) 16 %; MCH 28.9 pg (25.0-35.0); MCHC 33.5 g/dL (31.0-37.0); MCV 86.3 fL (80.0-100.0); Mean Platelet Volume 6.8; Monocytes # (A) 0.4 k/uL (0-1.0); Monocytes % (A) 5 %; Neutrophils # (A) 5.9 k/uL (1.3-7.7); Neutrophils % (A) 74 %; Platelet Count 251 k/uL (150-450); RBC 4.14 m/uL (3.80-5.40); RDW 13.6 % (11.5-15.5)
[2023-09-22 10:07] LABS: INR 0.9 (<1.2); Partial Thromboplastin Time 23.1 sec (22.0-30.0); Prothrombin Time 10.5 sec (10.0-12.5)
[2023-09-22 11:05] VITALS: BP 145/78; PULSE 86; RESP 18; TEMP 98.1
== END 2023-09-22 10:56 | disposition home or self-care (01) ==
LOC: EC 08:27
DX: F41.9 Anxiety disorder, unspecified (principal); E11.9 Type 2 diabetes mellitus without complications; I10 Essential (primary) hypertension; I25.10 Atherosclerotic heart disease of native coronary artery without angina pectoris; E78.5 Hyperlipidemia, unspecified; E07.9 Disorder of thyroid, unspecified; Z79.84 Long term (current) use of oral hypoglycemic drugs; Z79.82 Long term (current) use of aspirin; Z79.890 Hormone replacement therapy; Z79.899 Other long term (current) drug therapy; Z87.891 Personal history of nicotine dependence; Z88.2 Allergy status to sulfonamides; Z88.6 Allergy status to analgesic agent; Z95.5 Presence of coronary angioplasty implant and graft; Z98.41 Cataract extraction status, right eye; Z98.42 Cataract extraction status, left eye
CPT/HCPCS: 36415; 93005; 80053; 83605; 84484; 85025; 85610; 85730; 71046; 99285; 96374; J2060

== ENCOUNTER → 2023-09-28 | Outpatient (CLI) | payer MEDICARE ==
--- NOTE | 2023-09-28 11:46 | US ---
EXAMINATION TYPE: US chest DATE OF EXAM: 09/28/2023 COMPARISON: US & CXR CLINICAL INDICATION: Female, 78 years old with history of J90 PLEURAL EFFUSION, NOT ELSEWHERE CLASSIF IED; Effusion right side TECHNIQUE: Targeted ultrasound of the posterior lower right hemithorax EXAM MEASUREMENTS: Right Pleural Effusion pocket size: 13.2 cm Right skin surface to fluid distance: 4.3 cm Right side marked for possible thoracentesis outside the dept. Pulmonologists are able to review the images in the patient?s EMR. IMPRESSIONS: Right side marked for thoracentesis.
== END | disposition home or self-care (01) ==
LOC: RADUSWWP 09:51
PROVIDERS: ATTEND Internal Medicine Critical Care Medicine
DX: J90 Pleural effusion, not elsewhere classified (principal)
CPT/HCPCS: 76604

== ENCOUNTER → 2023-10-02 | Day surgery (SDC) | payer MEDICARE ==
[~2023-10-02] MED LIST: SODIUM CHLORIDE 0.9% 500 ML 500 ML in EMPTY BAG 1 BAG IV PRN
[2023-10-02] MEDS: ATROPINE SULFATE 0.4 MG/ML 1 ML VIAL IM STA (12:10)
[2023-10-02 12:15] VITALS: TEMP 98.2
[2023-10-02 12:45] VITALS: BP 93/64; PULSE 105; RESP 15
--- NOTE | 2023-10-02 12:51 | PCN ---
PROCEDURE NOTE This is a Pulmonary/Critical Care Procedure. PROCEDURE PERFORMED: Right-sided thoracentesis. PREOPERATIVE DIAGNOSIS: Malignant right-sided pleural effusion. POSTOPERATIVE DIAGNOSIS: Malignant right-sided pleural effusion. VAMP STRAP IRONER: Dr. Alan. He was assisted by Dr. Suzie Freire for salesperson surgical appliances. There was informed consent and universal timeout. The patient's procedure took place in [facility], 3rd floor. The right posterior chest was marked by ultrasound. A time-out was completed verifying correct patient, procedure, site, positioning , and implant (s) or special equipment if applicable. Ultrasound guidance was/was not used and appropriate fluid pocket was identified and marked. Patient was positioned, prepped and draped in usual sterile fashion. Lidocaine was used to anesthetize the area. A Thoracentesis catheter was introduced into the pleural space and fluid was removed. Blood loss was none. A chest x-ray was ordered to evaluate for pneumothorax. Roughly 1200 mL of dark yellow fluid was removed from the right pleural space. The patient tolerated the procedure well. There was no immediate complication. The fluid will not be sent for analysis. A chest x-ray will be ordered. There was no immediate complication. The patient could be discharged once the chest x-ray was evaluated by Radiology. MMODL / IJN: [id number] /
--- NOTE | 2023-10-02 12:55 | XR ---
EXAMINATION TYPE: XR chest 1V portable DATE OF EXAM: 10/02/2023 Comparison: 09/22/2023 Clinical History: 78-year-old female post thoracentesis Findings: Heart normal size. Other scattered calcifications. Focal right upper lobe opacity is similar. Trace r ight pleural effusion. No appreciable pneumothorax. Impression: Similar focal right upper lobe opacity. Trace right pleural effusion. No appreciable pneumothorax.
== END ==
LOC: PROCWHC3 11:33
PROVIDERS: ATTEND Internal Medicine Critical Care Medicine
DX: C34.90 Malignant neoplasm of unspecified part of unspecified bronchus or lung (principal); J91.0 Malignant pleural effusion; I25.10 Atherosclerotic heart disease of native coronary artery without angina pectoris; E11.9 Type 2 diabetes mellitus without complications; E78.5 Hyperlipidemia, unspecified; I10 Essential (primary) hypertension; E03.9 Hypothyroidism, unspecified; Z79.82 Long term (current) use of aspirin; Z88.2 Allergy status to sulfonamides; Z79.890 Hormone replacement therapy; Z79.899 Other long term (current) drug therapy; Z95.5 Presence of coronary angioplasty implant and graft; Z79.84 Long term (current) use of oral hypoglycemic drugs
CPT/HCPCS: 71045; 96372; 32554; J0461

== ENCOUNTER 2023-10-06 21:00 | Emergency (ER) | payer MEDICARE ==
[2023-10-06] MEDS ORDERED: HYDROmorphone 0.5 MG/0.5 ML SYRINGE IVP STA (22:10)
--- NOTE | 2023-10-06 22:11 | ED ---
SOB HPI - General Stated Complaint: IRENE-Lung Cancer Source: RN notes reviewed, old records reviewed Mode of arrival: ambulatory Limitations: no limitations - History of Present Illness Initial Comments: This is a 78-year-old female to the ER for evaluation today. Patient notes today for evaluation of severe shortness of breath significant dyspnea with history of similar. Patient has no recent travels or sick contacts does have occasional chest pain here in the ER but has no recent hospital admissions, no current fevers cough or congestion. Patient does feel short of breath especially with exertion MD Complaint: shortness of breath, cough -: days(s) Severity: mild Severity scale (1-10): 3 Consistency: intermittent Improves With: nothing Worsens With: nothing, coughing Known History Of: COPD Context: recent URI, recent illness Associated Symptoms: chest pain Treatments Prior to Arrival: none - Related Data Home Medications Medication Instructions Recorded Confirmed Aspirin 325 mg PO HS 09/16/15 10/16/23 Atorvastatin [Lipitor] 40 mg PO HS 09/16/15 10/16/23 Bisoprolol-Hctz 2.5-6.25 mg [Ziac 1 tab PO DAILY@1500 09/16/15 10/16/23 2.5-6.25 MG] Losartan [Cozaar] 50 mg PO DAILY@1500 09/16/15 10/16/23 amLODIPine [Norvasc] 10 mg PO DAILY@0800 09/16/15 10/16/23 Cholecalciferol [Vitamin D3 (25 50 mcg PO DAILY@1500 09/14/23 10/16/23 Mcg = 1000 Iu)] Levothyroxine Sodium [Synthroid] 125 mcg PO DAILY@79909/14/23 10/16/23 sitaGLIPtin [Januvia] 50 mg PO DAILY@0809/14/23 10/16/23 Albuterol Inhaler [Ventolin Hfa 1 puff INHALATION RT-QID PRN 09/19/23 10/16/23 Inhaler] Escitalopram [Lexapro] 10 mg PO DIRECTED 09/22/23 10/16/23 Allergies Allergy/AdvReac Type Severity Reaction Status Date / Time ibuprofen Allergy Itching Verified 10/16/23 14:40 Sulfa (Sulfonamide Allergy Rash/Hives Verified 10/16/23 14:40 Antibiotics) Review of Systems ROS Statement: Those systems with pertinent positive or pertinent negative responses have been documented in the HPI. ROS Other: All systems not noted in ROS Statement are negative. Past Medical History Past Medical History: Coronary Artery Disease (CAD), Diabetes Mellitus, Hyperlipidemia, Hypertension, Thyroid Disorder History of Any Multi-Drug Resistant Organisms: None Reported Past Surgical History: Heart Catheterization With Stent, Hysterectomy, Tonsillectomy Additional Past Surgical History / Comment(s): HEART STENT X2, SIL CAROTIDENDARTECTOMY, SIL CATARACTS Past Anesthesia/Blood Transfusion Reactions: No Reported Reaction Date of Last Stent Placement:: UNKNOWN Smoking Status: Former smoker - Past Family History Mother Family Medical History: No Reported History General Exam General appearance: alert, in no apparent distress Head exam: Present: atraumatic, normocephalic, normal inspection Eye exam: Present: normal appearance, PERRL, EOMI. Absent: scleral icterus, conjunctival injection, periorbital swelling ENT exam: Present: normal exam, mucous membranes moist Neck exam: Present: normal inspection. Absent: tenderness, meningismus, lymphadenopathy Respiratory exam: Present: normal lung sounds bilaterally. Absent: respiratory distress, wheezes, rales, rhonchi, stridor Cardiovascular Exam: Present: regular rate, normal rhythm, normal heart sounds. Absent: systolic murmur, diastolic murmur, rubs, gallop, clicks GI/Abdominal exam: Present: soft, normal bowel sounds. Absent: distended, tenderness, guarding, rebound, rigid Extremities exam: Present: normal inspection, full ROM, normal capillary refill. Absent: tenderness, pedal edema, joint swelling, calf tenderness Back exam: Present: normal inspection Neurological exam: Present: alert, oriented X3, CN II-XII intact Psychiatric exam: Present: normal affect, normal mood Skin exam: Present: warm, dry, intact, normal color. Absent: rash Course Vital Signs 10/06/23 22:03 Temperature 98.7 F Pulse Rate 73 Respiratory 22 Rate Blood Pressure 136/79 O2 Sat by Pulse 97 Oximetry - Reevaluation(s) Reevaluation #1: 10/06/23 22:[address] Betancur Medical records reviewed Reevaluation #2: Patient symptoms improved Reevaluation #3: Patient informed of results and questions answered Reevaluation #4: Was pt. sent in by a medical professional or institution (, PA, BUSINESS INSIGHT AND ANALYTICS MANAGER, urgent care, hospital, or fci...) When possible be specific @ -no Did you speak to anyone other than the patient for history (EMS, parent, family, police, friend...)? What history was obtained from this source @ -no Did you review nursing and triage notes (agree or disagree)? Why? @ -agree Are old charts reviewed (outside hosp., previous admission, EMS record, old EKG, old radiological studies, urgent care reports/EKG's, fci records)? Report findings @ -yes Differential Diagnosis (chest pain, altered mental status, abdominal pain women, abdominal pain men, vaginal bleeding, weakness, fever, dyspnea, syncope, headache, dizziness, GI bleed, back pain, seizure, CVA, palpatations, mental health, musculoskeletal)? @ -prior EKG interpreted by me (3pts min.). @ -yes X-rays interpreted by me (1pt min.). @ -yes negative for acute disease CT interpreted by me (1pt min.). @ -no U/S interpreted by me (1pt. min.). @ -no What testing was considered but not performed or refused? (CT, X-rays, U/S, labs)? Why? @ -none What meds were considered but not given or refused? Why? @ -none Did you discuss the management of the patient with other professionals (professionals i.e. , PA, BUSINESS INSIGHT AND ANALYTICS MANAGER, lab, RT, psych nurse, group social worker, dog groomer, teacher, consumer safety officer, director case)? Give summary @ -no Was smoking cessation discussed for >3mins.? @ -no Was critical care preformed (if so, how long)? @ -no Were there social determinants of health that impacted care today? How? (Homelessness, low income, unemployed, alcoholism, drug addiction, transportation, low edu. Level, literacy, decrease access to med. care, long term, rehab)? @ -none Was there de-escalation of care discussed even if they declined (Discuss DNR or withdrawal of care, Hospice)? DNR status @ -no What co-morbidities impacted this encounter? (DM, HTN, Smoking, COPD, CAD, Cancer, CVA, ARF, Chemo, Hep., AIDS, mental health diagnosis, sleep apnea, morbid obesity)? @ -none Was patient admitted / discharged? Hospital course, mention meds given and route, prescriptions, significant lab abnormalities, going to OR and other pertinent info. @ - 78 female to ER for evaluation of known shortness of breath and dyspnea here in the ER. Although the patient is in no distress feeling improved here in the ER and can be discharged home Discharged Undiagnosed new problem with uncertain prognosis? @ -no Drug Therapy requiring intensive monitoring for toxicity (Heparin, Nitro, Insulin, Cardizem)? @ -no Were any procedures done? @ -no Diagnosis/symptom? @ -Dyspnea Acute, or Chronic, or Acute on Chronic? @ -Acute Uncomplicated (without systemic symptoms) or Complicated (systemic symptoms)? @ -Complicated Side effects of treatment? @ -no Exacerbation, Progression, or Severe Exacerbation? @ -exacerbation Poses a threat to life or bodily function? How? (Chest pain, [place], NH, pneumonia, PE, COPD, DKA, ARF, appy, cholecystitis, CVA, Diverticulitis, Homicidal, Suicidal, threat to staff... and all critical care pts) @ -yes negative for acute disease Reevaluation #5: Differential Dyspnea: Coronary syndrome, arrhythmia, tamponade, asthma, COPD, pulmonary embolism, pneumonia, pneumothorax, pulmonary effusion, anaphylaxis, diabetic ketoacidosis, flailed chest, pulmonary contusion, diaphragmatic rupture, anemia, neuromuscular, this is not meant to be an all-inclusive list. Medical Decision Making - Medical Decision Making 78 female to ER for evaluation of known shortness of breath and dyspnea here in the ER. Although the patient is in no distress feeling improved here in the ER and can be discharged home - Lab Data Result diagrams: 10/06/23 22:49 10/06/23 22:49 Lab Results 10/06/23 10/06/23 10/06/23 Range/Units 22:49 22:49 22:49 WBC 12.7 H (3.8-10.6) k/uL RBC 4.20 (3.80-5.40) m/uL Hgb 12.1 (11.4-16.0) gm/dL Hct 36.1 (34.0-46.0) % MCV 86.0 (80.0-100.0) fL MCH 28.8 (25.0-35.0) pg MCHC 33.5 (31.0-37.0) g/dL RDW 13.7 (11.5-15.5) % Plt Count 233 (150-450) k/uL MPV 7.1 Neutrophils % 81 % Lymphocytes % 10 % Monocytes % 5 % Eosinophils % 1 % Basophils % 1 % Neutrophils # 10.3 H (1.3-7.7) k/uL Lymphocytes # 1.3 (1.0-4.8) k/uL Monocytes # 0.6 (0-1.0) k/uL Eosinophils # 0.2 (0-0.7) k/uL Basophils # 0.1 (0-0.2) k/uL PT 10.2 (10.0-12.5) sec INR 0.9 (<1.2) APTT 24.0 (22.0-30.0) sec Sodium 130 L (137-145) mmol/L Potassium 3.4 L (3.5-5.1) mmol/L Chloride 92 L (98-107) mmol/L Carbon Dioxide 29 (22-30) mmol/L Anion Gap 9 mmol/L BUN 19 H (7-17) mg/dL Creatinine 0.55 (0.52-1.04) mg/dL Est GFR (CKD-EPI)AfAm >90 (>60 ml/min/1.73 sqM) Est GFR (CKD-EPI)NonAf 90 (>60 ml/min/1.73 sqM) Glucose 217 H (74-99) mg/dL Calcium 9.9 (8.4-10.2) mg/dL Magnesium 1.6 (1.6-2.3) mg/dL Total Bilirubin 0.7 (0.2-1.3) mg/dL AST 27 (14-36) U/L ALT 21 (4-34) U/L Alkaline Phosphatase 93 (38-126) U/L Troponin I (0.000-0.034) ng/mL NT-Pro-B Natriuret Pep 206 pg/mL Total Protein 7.3 (6.3-8.2) g/dL Albumin 4.1 (3.5-5.0) g/dL 10/06/23 Range/Units 22:49 WBC (3.8-10.6) k/uL RBC (3.80-5.40) m/uL Hgb (11.4-16.0) gm/dL Hct (34.0-46.0) % MCV (80.0-100.0) fL MCH (25.0-35.0) pg MCHC (31.0-37.0) g/dL RDW (11.5-15.5) % Plt Count (150-450) k/uL MPV Neutrophils % % Lymphocytes % % Monocytes % % Eosinophils % % Basophils % % Neutrophils # (1.3-7.7) k/uL Lymphocytes # (1.0-4.8) k/uL Monocytes # (0-1.0) k/uL Eosinophils # (0-0.7) k/uL Basophils # (0-0.2) k/uL PT (10.0-12.5) sec INR (<1.2) APTT (22.0-30.0) sec Sodium (137-145) mmol/L Potassium (3.5-5.1) mmol/L Chloride (98-107) mmol/L Carbon Dioxide (22-30) mmol/L Anion Gap mmol/L BUN (7-17) mg/dL Creatinine (0.52-1.04) mg/dL Est GFR (CKD-EPI)AfAm (>60 ml/min/1.73 sqM) Est GFR (CKD-EPI)NonAf (>60 ml/min/1.73 sqM) Glucose (74-99) mg/dL Calcium (8.4-10.2) mg/dL Magnesium (1.6-2.3) mg/dL Total Bilirubin (0.2-1.3) mg/dL AST (14-36) U/L ALT (4-34) U/L Alkaline Phosphatase (38-126) U/L Troponin I <0.012 (0.000-0.034) ng/mL NT-Pro-B Natriuret Pep pg/mL Total Protein (6.3-8.2) g/dL Albumin (3.5-5.0) g/dL - EKG Data -: EKG Interpreted by Me (EKG is sinus 82 [place] 168 QRS 102 QTc 424) - Radiology Data Radiology results: report reviewed (S x-ray is negative for acute disease), image reviewed Disposition Clinical Impression: Dyspnea Disposition: HOME SELF-CARE Condition: Fair Instructions (If sedation given, give patient instructions): Dyspnea (ED) Is patient prescribed a controlled substance at d/c from ED?: No Referrals: Esteban Grant DO [Primary Care Provider] - 1-2 days Time of Disposition: 00:05
[2023-10-06 22:28] VITALS: BP 136/79; PULSE 73; RESP 22; TEMP 98.7
[2023-10-06 22:56] LABS: Basophils # (A) 0.1 k/uL (0-0.2); Basophils % (A) 1 %; Eosinophils # (A) 0.2 k/uL (0-0.7); Eosinophils % (A) 1 %; HCT 36.1 % (34.0-46.0); HGB 12.1 gm/dL (11.4-16.0); Lymphocytes # (A) 1.3 k/uL (1.0-4.8); Lymphocytes % (A) 10 %; MCH 28.8 pg (25.0-35.0); MCHC 33.5 g/dL (31.0-37.0); Mean Platelet Volume 7.1; Monocytes # (A) 0.6 k/uL (0-1.0); Monocytes % (A) 5 %; Neutrophils # (A) 10.3 k/uL (1.3-7.7); Neutrophils % (A) 81 %; Platelet Count 233 k/uL (150-450); RDW 13.7 % (11.5-15.5); WBC 12.7 k/uL (3.8-10.6)
--- NOTE | 2023-10-06 23:02 | XR ---
EXAMINATION TYPE: XR chest 1V portable DATE OF EXAM: 10/06/2023 COMPARISON: Chest x-ray 4 days ago HISTORY: Shortness of breath TECHNIQUE: Single frontal view of the chest is obtained. FINDINGS: There is persistent right upper lobe increased opacity. Left lung is clear. The cardiac s ilhouette size is within normal limits with atherosclerotic change in the thoracic aorta. The osseo us structures remain demineralized. IMPRESSION: Persistent right upper lobe acute infiltrate. No new acute infiltrate seen.
[2023-10-06 23:04] LABS: ALT 21 U/L (4-34); AST 27 U/L (14-36); African American GFR (CKD) >90 (>60 ml/min/1.73 sqM); Albumin 4.1 g/dL (3.5-5.0); Alkaline Phosphatase 93 U/L (38-126); Anion Gap 9 mmol/L; Blood Urea Nitrogen 19 mg/dL (7-17); Calcium 9.9 mg/dL (8.4-10.2); Carbon Dioxide 29 mmol/L (22-30); Chloride 92 mmol/L (98-107); Glucose 217 mg/dL (74-99); Magnesium 1.6 mg/dL (1.6-2.3); Non-African American GFR(CKD) 90 (>60 ml/min/1.73 sqM); Potassium 3.4 mmol/L (3.5-5.1); Sodium 130 mmol/L (137-145); Total Bilirubin 0.7 mg/dL (0.2-1.3); Total Protein 7.3 g/dL (6.3-8.2)
[2023-10-06 23:05] LABS: INR 0.9 (<1.2); Prothrombin Time 10.2 sec (10.0-12.5)
[2023-10-06 23:13] LABS: NT-Pro-B-Type Natriuretic Pept 206 pg/mL
== END 2023-10-07 00:35 | disposition home or self-care (01) ==
LOC: EC 21:00
DX: I45.10 Unspecified right bundle-branch block (principal); E78.5 Hyperlipidemia, unspecified; I10 Essential (primary) hypertension; I25.10 Atherosclerotic heart disease of native coronary artery without angina pectoris; J44.9 Chronic obstructive pulmonary disease, unspecified; E11.9 Type 2 diabetes mellitus without complications; E07.9 Disorder of thyroid, unspecified; Z79.82 Long term (current) use of aspirin; Z79.899 Other long term (current) drug therapy; Z79.890 Hormone replacement therapy; Z88.6 Allergy status to analgesic agent; Z88.2 Allergy status to sulfonamides
CPT/HCPCS: 36415; 71045; 80053; 83735; 83880; 84484; 85025; 85610; 85730; 93005; 99285

== ENCOUNTER → 2023-10-19 | Outpatient (CLI) | payer MEDICARE ==
[2023-10-19 11:40] LABS: African American GFR (CKD) >90 (>60 ml/min/1.73 sqM); Blood Urea Nitrogen 18 mg/dL (7-17); Non-African American GFR(CKD) 87 (>60 ml/min/1.73 sqM)
--- NOTE | 2023-10-20 14:14 | CT ---
EXAMINATION TYPE: CT brain wo/w con DATE OF EXAM: 10/19/2023 COMPARISON: None. HISTORY: confusion, new lung ca dx CT DLP: 1990 mGycm Automated exposure control for dose reduction was used. CONTRAST: CT scan of the head is performed without and with IV Contrast, patient injected with 100 mL of Isovue 300. FINDINGS: There is no abnormal enhancing mass on postcontrast images. There is mild ventricular and sulcal prom inence. Mild low attenuation in the periventricular white matter is seen. Bilateral aphakia is prese nt. The visualized sinuses are clear. IMPRESSION: No abnormal enhancing masses to suggest metastatic disease to the brain.
== END | disposition home or self-care (01) ==
LOC: RADCTMAIN 10:59
PROVIDERS: ATTEND Internal Medicine Hematology & Oncology
DX: R41.0 Disorientation, unspecified (principal); C34.11 Malignant neoplasm of upper lobe, right bronchus or lung
CPT/HCPCS: 82565; 84520; 70470; 36415; Q9967

== ENCOUNTER → 2023-10-20 | Outpatient (CLI) | payer MEDICARE ==
--- NOTE | 2023-10-22 23:08 | PE ---
EXAMINATION TYPE: PET CT fusion skull to thigh DATE OF EXAM: 10/20/2023 CLINICAL INDICATION:Female, 78 years old with history of R91.8; TECHNIQUE: Following the intravenous administration of 9.67 mCi of F-18 FDG, whole body images are performed from the skull base to the midthigh. Images are reviewed on the computer in the coronal, a xial, and sagittal planes. Reconstructed rotating images are created on independent workstation and reviewed on the computer. A non-contrast CT is performed in conjunction with the PET scan. Glucose level 200 mg/dL CT DLP: 481 mGycm, Automated exposure control for dose reduction was used. COMPARISON: CT 09/14/2023, PET/CT None, FINDINGS: Increased blood sugar levels decrease sensitivity of PET/CT. Mediastinal SUV mean is 2.8. Hepatic parenchyma SUV mean is 2.9. SKULL BASE AND NECK: No suspicious radiotracer activity. CHEST, MEDIASTINUM, AND HILAR REGION: Diffuse uptake of the pleura with a nodular appearance and pleural fusion. Example includes max SUV a long the inferior medial aspect 10.4, superior medial masslike consolidation with max SUV 15.2 possib ly with primary mass within this region measuring at least 4.1 x 2.9 cm evaluation difficult consolid ation changes. . Posterior lateral pleural max SUV 10.3. * Left supraclavicular lymph nodes max SUV 8.0 measuring up to 9 mm in short axis. * Right paratracheal lymph node max SUV 8.9 measuring 8 mm near the thoracic inlet. * Left pulmonary hilum lymph nodes max SUV 8.8. * Subcarinal lymph nodes max SUV 16.1. ABDOMEN AND PELVIS: Area abnormal radiotracer activity within the right hepatic lobe measuring 16 mm Max SUV 7.3 and anot her near the dome max SUV 8.9. There is at least 5 lesions identified. MUSCULOSKELETAL STRUCTURES: Abnormal soft tissue masses with cortical breakthrough scattered throughout the osseous structures. E xample includes: * Right iliac bone measuring 68 x 46 mm Max SUV 20.0. With cortical breakthrough and soft tissue. * Anterior inferior L4 vertebral body max SUV 8.5. * Anterior abdominal wall subcutaneous tissues max SUV 6.7. Measuring 7 mm. * Right scapula max SUV 13.3 with cortical breakthrough and soft tissue. * T3 vertebrae max SUV 12.0 with biconcave deformity. * Multiple other tiny foci also present. OTHER CT: Bilaterally aphakia. Atherosclerosis of the arterial vasculature. Atherosclerosis of the co ronary arteries. Large right pleural effusion with associated atelectasis. Large left renal cyst. Lay ering gallstones in the gallbladder lumen. IMPRESSION: Increased blood sugar levels decrease sensitivity of PET/CT. 1. There is evidence for diffuse metastatic disease within the osseous structures, the neck lymph no karthik, mediastinal lymph nodes, the right pleura, the left perihilar lymph nodes, the left anterior abd ominal wall subcutaneous tissues, and in the liver. Primary source thought to be right upper pulmonar y lobe/perihilar masslike consolidation. 2. Correlate for upper thoracic spine pathologic fracture of T3 vertebrae.
== END | disposition home or self-care (01) ==
LOC: RADPETMAIN 10:57
PROVIDERS: ATTEND Internal Medicine Critical Care Medicine
DX: C78.7 Secondary malignant neoplasm of liver and intrahepatic bile duct (principal); C34.11 Malignant neoplasm of upper lobe, right bronchus or lung; R73.9 Hyperglycemia, unspecified
CPT/HCPCS: 78815; A9552

== ENCOUNTER 2023-10-24 07:46 | Day surgery (SDC) | payer MEDICARE ==
[2023-10-24 08:39] LABS: Mean Platelet Volume 6.8; Platelet Count 274 k/uL (150-450)
[2023-10-24 08:53] LABS: Prothrombin Time 10.7 sec (10.0-12.5)
[2023-10-24 09:24] VITALS: TEMP 98.3
[2023-10-24 09:59] VITALS: RESP 16
--- NOTE | 2023-10-24 10:25 | XR ---
EXAMINATION TYPE: XR chest 1V portable DATE OF EXAM: 10/24/2023 10:08 AM CLINICAL INDICATION:Female, 78 years old with history of post rt thoracentesis; COMPARISON: Chest radiographs from 10/06/2023 TECHNIQUE: XR chest 1V portable Frontal view of the chest. FINDINGS: Lungs/Pleura: Blunting of right costophrenic angle with fluid along the fissures. There is pulmonary vascular congestion on the right. There is no evidence of pleural effusion, focal consolidation, or p neumothorax. Pulmonary vascularity: Unremarkable. Heart/mediastinum: Cardiomediastinal silhouette is enlarged and stable. Atherosclerotic calcificatio ns are seen in the aorta. Musculoskeletal: No acute osseous pathology. Other findings: None IMPRESSION: 1. Right pleural effusion with associated streaky atelectasis and pulmonary vascular congestion. 2. Cardiomegaly.
[2023-10-24 10:35] VITALS: PULSE 99
[2023-10-24 11:10] VITALS: BP 135/74
--- NOTE | 2023-10-25 09:17 | US ---
EXAMINATION TYPE: US thoracentesis DATE OF EXAM: 10/24/2023 9:33 AM CLINICAL INDICATION:Female, 78 years old with history of J91.8 PLEURAL EFFUSION IN OTHER CONDITIONS C LASSIF; COMPARISON: 10/06/2023 ATTENDING: Dr. Markie Lira PROCEDURE: Informed consent was obtained. The risks of the procedure were extensively explained incl uding risk of pneumothorax and need for chest tube placement. Procedure was performed in the Ultraso und procedure suite. Ultrasound imaging of the chest demonstrates right pleural effusion. An approp riate access site was localized to the posterior left pleural space. Timeout was taken per protocol. The skin was prepped and draped in the usual sterile fashion and then locally anesthetized with 1% l idocaine. The pleural cavity was then accessed via a 5-[place] one-step needle/catheter. Approximate ly 1100 cc of clear straw-colored fluid was obtained. Postprocedural imaging of the chest demonstrate a decreased amount of pleural fluid. Patient tolerated procedure well without immediate complication. Hemostasis at the procedural site w as obtained with a sterile bandage placed. Immediate following the procedure, an inspiratory and expi ratory chest x-ray was reviewed. No post procedure pneumothorax was identified. The patient was monit ored in the holding area for approximately one hour following the procedure and was subsequently disc harged in stable condition. IMPRESSION: Ultrasound guided thoracentesis, with approximately 1100 cc of clear straw-colored fluid drained. No immediate complications were evident.
== END 2023-10-24 10:40 | disposition home or self-care (01) ==
LOC: RADPROMAIN 07:46
PROVIDERS: ATTEND Internal Medicine Hematology & Oncology
DX: J91.8 Pleural effusion in other conditions classified elsewhere (principal); J98.11 Atelectasis; I51.7 Cardiomegaly
CPT/HCPCS: 32555; 36415; 71045; 82947; 85049; 85610

== ENCOUNTER 2023-11-01 15:35 | Inpatient (IN) | payer MEDICARE ==
--- NOTE | 2023-11-01 16:25 | ED ---
General Adult HPI - General Chief complaint: Weakness Stated complaint: Placement for living assist home, [place] [facility] PT Time Seen by Provider: 11/01/23 16:05 Source: patient, RN notes reviewed Mode of arrival: wheelchair Limitations: no limitations - History of Present Illness Initial comments: 78-year-old female presents to the emergency department with family for increased weakness, incontinence for around 1 week. Patient is no longer able to get around the house. Family reports that she had a recent diagnosis of lung cancer with mets to the bone. This diagnosis was a little over 1 month ago. She follows with Dr. Lima and Dr. Lu. She is currently not receiving any treatment. Patient reports shortness of breath, back pain. They are here today in hopes of getting placement to a fci/on hospice. - Related Data Home Medications Medication Instructions Recorded Confirmed Atorvastatin [Lipitor] 40 mg PO HS 09/16/15 11/01/23 Bisoprolol-Hctz 2.5-6.25 mg [Ziac 1 tab PO DAILY 09/16/15 11/01/23 2.5-6.25 MG] Losartan [Cozaar] 50 mg PO DAILY 09/16/15 11/01/23 amLODIPine [Norvasc] 10 mg PO DAILY 09/16/15 11/01/23 Cholecalciferol [Vitamin D3 (25 50 mcg PO DAILY 09/14/23 11/01/23 Mcg = 1000 Iu)] Levothyroxine Sodium [Synthroid] 125 mcg PO DAILY 09/14/23 11/01/23 sitaGLIPtin [Januvia] 50 mg PO DAILY 09/14/23 11/01/23 Escitalopram [Lexapro] 10 mg PO DAILY 09/22/23 11/01/23 HYDROcodone/APAP 5-325MG [[place] 1 tab PO BID PRN 11/01/23 11/01/23 5-325] Ibuprofen/Acetaminophen [Advil 1 tab PO Q6H PRN 11/01/23 11/01/23 Dual Action 125MG(IBU)-250MG(ACET)] Morphine Sulfate Ir [MSIR] 15 mg PO BID 11/01/23 11/01/23 Naloxone HCl [Narcan] 4 mg NASAL DIRECTED PRN 11/01/23 11/01/23 Allergies Allergy/AdvReac Type Severity Reaction Status Date / Time Sulfa (Sulfonamide Allergy Rash/Hives Verified 11/01/23 19:04 Antibiotics) ibuprofen [From Motrin] AdvReac Unknown Verified 11/01/23 19:04 Review of Systems ROS Statement: Those systems with pertinent positive or pertinent negative responses have been documented in the HPI. ROS Other: All systems not noted in ROS Statement are negative. Past Medical History Past Medical History: Coronary Artery Disease (CAD), Cancer, Diabetes Mellitus, Hyperlipidemia, Hypertension, Thyroid Disorder Additional Past Medical History / Comment(s): Lung cancer per daughter History of Any Multi-Drug Resistant Organisms: None Reported Past Surgical History: Heart Catheterization With Stent, Hysterectomy, Tonsillectomy Additional Past Surgical History / Comment(s): HEART STENT X2, SIL CAROTIDENDARTECTOMY, SIL CATARACTS Past Anesthesia/Blood Transfusion Reactions: No Reported Reaction Date of Last Stent Placement:: UNKNOWN Past Psychological History: No Psychological Hx Reported Smoking Status: Former smoker Past Alcohol Use History: Rare Past Drug Use History: None Reported - Past Family History Mother Family Medical History: No Reported History General Exam Limitations: no limitations General appearance: alert, in no apparent distress Head exam: Present: atraumatic, normocephalic, normal inspection Eye exam: Present: normal appearance, PERRL, EOMI. Absent: scleral icterus, conjunctival injection, periorbital swelling ENT exam: Present: normal exam, mucous membranes moist Neck exam: Present: normal inspection. Absent: tenderness, meningismus, lymphadenopathy Respiratory exam: Present: normal lung sounds bilaterally. Absent: respiratory distress, wheezes, rales, rhonchi, stridor Cardiovascular Exam: Present: regular rate, normal rhythm, normal heart sounds. Absent: systolic murmur, diastolic murmur, rubs, gallop, clicks GI/Abdominal exam: Present: soft, hyperactive bowel sounds. Absent: distended, tenderness, guarding, rebound, rigid Extremities exam: Present: full ROM, normal capillary refill, pedal edema. Absent: tenderness, joint swelling, calf tenderness Back exam: Present: normal inspection Neurological exam: Present: alert, oriented X3 Psychiatric exam: Present: normal affect, normal mood Skin exam: Present: warm, dry, intact, normal color. Absent: rash Course Vital Signs 11/01/23 11/01/23 11/01/23 15:37 15:52 16:00 Temperature 98.0 F Pulse Rate 80 86 78 Respiratory 20 24 23 Rate Blood Pressure 126/72 144/69 144/69 O2 Sat by Pulse 93 L 91 L 99 Oximetry 11/01/23 11/01/23 11/01/23 17:00 18:00 19:00 Temperature Pulse Rate 73 74 Respiratory 24 22 Rate Blood Pressure 111/61 117/65 120/61 O2 Sat by Pulse 97 96 Oximetry 11/01/23 11/01/23 11/01/23 19:05 20:00 21:45 Temperature Pulse Rate 72 75 73 Respiratory 16 19 18 Rate Blood Pressure 120/67 128/74 122/64 O2 Sat by Pulse 97 97 97 Oximetry Medical Decision Making - Medical Decision Making Was pt. sent in by a medical professional or institution (, PA, AD WRITER, urgent care, hospital, or fci...) When possible be specific @ -No Did you speak to anyone other than the patient for history (EMS, parent, family, police, friend...)? What history was obtained from this source @ -No Did you review nursing and triage notes (agree or disagree)? Why? @ -I reviewed and agree with nursing and triage notes Were old charts reviewed (outside hosp., previous admission, EMS record, old EKG, old radiological studies, urgent care reports/EKG's, fci records)? Report findings @ -No old charts were reviewed Differential Diagnosis (chest pain, altered mental status, abdominal pain women, abdominal pain men, vaginal bleeding, weakness, fever, dyspnea, syncope, headache, dizziness, GI bleed, back pain, seizure, CVA, palpatations, mental health, musculoskeletal)? @ -Differential Weakness: Hypoglycemia, shock, sepsis, hyponatremia, anemia, infection, ID, ETOH, adverse medicine reaction, overdose, stroke, this is not meant to be an all-inclusive list. EKG interpreted by me (3pts min.). @ -EKG at 1550 shows sinus rhythm rate 86, OH 174, QRS 111, QTQTc [id number] X-rays interpreted by me (1pt min.). @ -Chest x-ray shows right-sided malignancy with pleural effusion CT interpreted by me (1pt min.). @ -None done U/S interpreted by me (1pt. min.). @ -None done What testing was considered but not performed or refused? (CT, X-rays, U/S, labs)? Why? @ -None What meds were considered but not given or refused? Why? @ -None Did you discuss the management of the patient with other professionals (damion van i.e. , PA, AD WRITER, lab, RT, psych nurse, social worker clinical, soil specialist, teacher, real estate utilization officer, rn case manager)? Give summary @ -Case discussed with Joseph Villegas with [facility] who is accepting of the admission Was smoking cessation discussed for >3mins.? @ -No Was critical care preformed (if so, how long)? @ -No Were there social determinants of health that impacted care today? How? (Homelessness, low income, unemployed, alcoholism, drug addiction, transportation, low edu. Level, literacy, decrease access to med. care, long-term, rehab)? @ -No Was there de-escalation of care discussed even if they declined (Discuss DNR or withdrawal of care, Hospice)? DNR status @ -No What co-morbidities impacted this encounter? (DM, HTN, Smoking, COPD, CAD, Cancer, CVA, ARF, Chemo, Hep., AIDS, mental health diagnosis, sleep apnea, morbid obesity)? @ -None Was patient admitted / discharged? Hospital course, mention meds given and route, prescriptions, significant lab abnormalities, going to OR and other per tinent info. @ -Admitted.Patient presented to the emergency department for evaluation of increased weakness, confusion over the past week. She does have a recent diagnosis of lung cancer with metastasis. She is unable to get around her home safely. She is hoping for fci/hospice placement. Laboratory studies obtained. Patient has mild leukocytosis of 14.0 which is comparable to her p rior visit; CMP shows sodium 131, testing 3.7, chloride 97, magnesium 1.5, patient provided magnesium replacement. Patient will be admitted for placement. Pending UA at time of admission. Case discussed with Joseph Wilder with [facility] was accepting of the admission. Case discussed with my attending, Dr. Rabago Undiagnosed new problem with uncertain prognosis? @ -No Drug Therapy requiring intensive monitoring for toxicity (Heparin, Nitro, Insulin, Cardizem)? @ -No Were any procedures done? @ -No Diagnosis/symptom? @ -Generalized weakness, lung cancer Acute, or Chronic, or Acute on Chronic? @ -Acute Uncomplicated (without systemic symptoms) or Complicated (systemic symptoms)? @ -Uncomplicated Side effects of treatment? @ -No Exacerbation, Progression, or Severe Exacerbation? @ -No Poses a threat to life or bodily function? How? (Chest pain, USA, ID, pneumonia, PE, COPD, DKA, ARF, appy, cholecystitis, CVA, Diverticulitis, Homicidal, Suicidal, threat to staff... and all critical care pts) @ -No - Lab Data Result diagrams: 11/01/23 16:33 11/01/23 16:33 Lab Results 11/01/23 11/01/23 11/01/23 Range/Units 16:33 16:33 16:33 WBC 14.0 H (3.8-10.6) k/uL RBC 4.12 (3.80-5.40) m/uL Hgb 11.8 (11.4-16.0) gm/dL Hct 35.9 (34.0-46.0) % MCV 87.2 (80.0-100.0) fL MCH 28.7 (25.0-35.0) pg MCHC 32.9 (31.0-37.0) g/dL RDW 15.4 (11.5-15.5) % Plt Count 310 (150-450) k/uL MPV 7.0 Neutrophils % 88 % Lymphocytes % 5 % Monocytes % 5 % Eosinophils % 0 % Basophils % 0 % Neutrophils # 12.3 H (1.3-7.7) k/uL Lymphocytes # 0.8 L (1.0-4.8) k/uL Monocytes # 0.7 (0-1.0) k/uL Eosinophils # 0.0 (0-0.7) k/uL Basophils # 0.1 (0-0.2) k/uL Poikilocytosis Slight PT 10.8 (10.0-12.5) sec INR 1.0 (<1.2) APTT 21.8 L (22.0-30.0) sec Sodium (137-145) mmol/L Potassium (3.5-5.1) mmol/L Chloride (98-107) mmol/L Carbon Dioxide (22-30) mmol/L Anion Gap mmol/L BUN (7-17) mg/dL Creatinine (0.52-1.04) mg/dL Est GFR (CKD-EPI)AfAm (>60 ml/min/1.73 sqM) Est GFR (CKD-EPI)NonAf (>60 ml/min/1.73 sqM) Glucose (74-99) mg/dL Calcium (8.4-10.2) mg/dL Phosphorus (2.5-4.5) mg/dL Magnesium (1.6-2.3) mg/dL Total Bilirubin (0.2-1.3) mg/dL AST (14-36) U/L ALT (4-34) U/L Alkaline Phosphatase (38-126) U/L Total Protein (6.3-8.2) g/dL Albumin (3.5-5.0) g/dL Urine Color Yellow Urine Appearance Clear (Clear) Urine pH 5.5 (5.0-8.0) Ur Specific [place] 1.019 (1.001-1.035) Urine Protein Negative (Negative) Urine Glucose (UA) Negative (Negative) Urine Ketones Negative (Negative) Urine Blood Trace H (Negative) Urine Nitrite Negative (Negative) Urine Bilirubin Negative (Negative) Urine Urobilinogen <2.0 (<2.0) mg/dL Ur Leukocyte Esterase Large H (Negative) Urine RBC 1 (0-5) /hpf Urine WBC 7 H (0-5) /hpf Ur Squamous Epith Cells 1 (0-4) /hpf Hyaline Casts 10 H (0-2) /lpf Urine Mucus Rare H (None) /hpf 11/01/23 Range/Units 16:33 WBC (3.8-10.6) k/uL RBC (3.80-5.40) m/uL Hgb (11.4-16.0) gm/dL Hct (34.0-46.0) % MCV (80.0-100.0) fL MCH (25.0-35.0) pg MCHC (31.0-37.0) g/dL RDW (11.5-15.5) % Plt Count (150-450) k/uL MPV Neutrophils % % Lymphocytes % % Monocytes % % Eosinophils % % Basophils % % Neutrophils # (1.3-7.7) k/uL Lymphocytes # (1.0-4.8) k/uL Monocytes # (0-1.0) k/uL Eosinophils # (0-0.7) k/uL Basophils # (0-0.2) k/uL Poikilocytosis PT (10.0-12.5) sec INR (<1.2) APTT (22.0-30.0) sec Sodium 131 L (137-145) mmol/L Potassium 3.7 (3.5-5.1) mmol/L Chloride 92 L (98-107) mmol/L Carbon Dioxide 27 (22-30) mmol/L Anion Gap 12 mmol/L BUN 28 H (7-17) mg/dL Creatinine 0.65 (0.52-1.04) mg/dL Est GFR (CKD-EPI)AfAm >90 (>60 ml/min/1.73 sqM) Est GFR (CKD-EPI)NonAf 85 (>60 ml/min/1.73 sqM) Glucose 215 H (74-99) mg/dL Calcium 9.8 (8.4-10.2) mg/dL Phosphorus 3.3 (2.5-4.5) mg/dL Magnesium 1.5 L (1.6-2.3) mg/dL Total Bilirubin 0.9 (0.2-1.3) mg/dL AST 39 H (14-36) U/L ALT 22 (4-34) U/L Alkaline Phosphatase 86 (38-126) U/L Total Protein 7.1 (6.3-8.2) g/dL Albumin 3.7 (3.5-5.0) g/dL Urine Color Urine Appearance (Clear) Urine pH (5.0-8.0) Ur Specific [place] (1.001-1.035) Urine Protein (Negative) Urine Glucose (UA) (Negative) Urine Ketones (Negative) Urine Blood (Negative) Urine Nitrite (Negative) Urine Bilirubin (Negative) Urine Urobilinogen (<2.0) mg/dL Ur Leukocyte Esterase (Negative) Urine RBC (0-5) /hpf Urine WBC (0-5) /hpf Ur Squamous Epith Cells (0-4) /hpf Hyaline Casts (0-2) /lpf Urine Mucus (None) /hpf Disposition Clinical Impression: Generalized weakness, Hypomagnesemia Disposition: ADMITTED IP TO THIS [facility] Condition: Stable Is patient prescribed a controlled substance at d/c from ED?: No
[2023-11-01 16:55] LABS: Basophils # (A) 0.1 k/uL (0-0.2); Basophils % (A) 0 %; Eosinophils % (A) 0 %; HCT 35.9 % (34.0-46.0); HGB 11.8 gm/dL (11.4-16.0); Lymphocytes # (A) 0.8 k/uL (1.0-4.8); Lymphocytes % (A) 5 %; MCH 28.7 pg (25.0-35.0); MCHC 32.9 g/dL (31.0-37.0); MCV 87.2 fL (80.0-100.0); Monocytes # (A) 0.7 k/uL (0-1.0); Monocytes % (A) 5 %; Neutrophils # (A) 12.3 k/uL (1.3-7.7); Neutrophils % (A) 88 %; Platelet Count 310 k/uL (150-450); Poikilocytosis Slight; RBC 4.12 m/uL (3.80-5.40); RDW 15.4 % (11.5-15.5)
[2023-11-01 17:11] LABS: Prothrombin Time 10.8 sec (10.0-12.5)
[2023-11-01 17:16] LABS: Partial Thromboplastin Time 21.8 sec (22.0-30.0)
--- NOTE | 2023-11-01 17:20 | XR ---
EXAMINATION TYPE: XR chest 2V DATE OF EXAM: 11/01/2023 5:03 PM CLINICAL INDICATION:Female, 78 years old with history of Weakness; [facility] COMPARISON: Chest radiographs from 10/24/2023 TECHNIQUE: XR chest 2V Frontal and lateral views of the chest. FINDINGS: Lungs/Pleura: The left lung is relatively clear and stable. Larger right pleural effusion with increa sed pulmonary vascular congestion within the right lung. Pulmonary vascularity: Unremarkable. Heart/mediastinum: Cardiomediastinal silhouette is unremarkable. Musculoskeletal: No acute osseous pathology. IMPRESSION: Mild increase in pulmonary edema with known right-sided malignancy with associated pleural effusion.
[2023-11-01 17:31] LABS: ALT 22 U/L (4-34); African American GFR (CKD) >90 (>60 ml/min/1.73 sqM); Albumin 3.7 g/dL (3.5-5.0); Anion Gap 12 mmol/L; Blood Urea Nitrogen 28 mg/dL (7-17); Calcium 9.8 mg/dL (8.4-10.2); Carbon Dioxide 27 mmol/L (22-30); Chloride 92 mmol/L (98-107); Glucose 215 mg/dL (74-99); Magnesium 1.5 mg/dL (1.6-2.3); Non-African American GFR(CKD) 85 (>60 ml/min/1.73 sqM); Phosphorus 3.3 mg/dL (2.5-4.5); Sodium 131 mmol/L (137-145); Total Bilirubin 0.9 mg/dL (0.2-1.3); Total Protein 7.1 g/dL (6.3-8.2)
[2023-11-01 17:38] LABS: AST 39 U/L (14-36); Alkaline Phosphatase 86 U/L (38-126); Potassium 3.7 mmol/L (3.5-5.1)
[2023-11-01] MEDS ORDERED: Magnesium Replacement Protocol 1 EACH MISC MISCELLANE PRN (19:58)
[2023-11-01] MEDS ORDERED: NALOXONE 0.4 MG/ML 1 ML VIAL IV PRN (20:13)
[2023-11-01] MEDS ORDERED: ACETAMINOPHEN TAB 325 MG TAB PO PRN (20:13)
[2023-11-01] MEDS: MORPHINE SULFATE 2 MG/ML SYRINGE IVP ONE (20:36)
[2023-11-01] MEDS: MAGNESIUM SULFATE-D5W PMX 1 GM in DEXTROSE/WATER 1 100ML.BAG IVPB SCH (20:36)
[2023-11-01 22:40] LABS: Appearance,Urine Clear (Clear); Bilirubin,Urine Negative (Negative); Blood,Urine Trace (Negative); Color,Urine Yellow; Glucose,Urine (UA) Negative (Negative); Hyaline Casts,Urine 10 /lpf (0-2); Ketones,Urine Negative (Negative); Leukocyte Esterase,Urine Large (Negative); Mucus,Urine Rare /hpf; Nitrite,Urine Negative (Negative); PH, Urine 5.5 (5.0-8.0); Protein,Urine Negative (Negative); RBC,Urine 1 /hpf (0-5); Specific Gravity,Urine 1.019 (1.001-1.035); Squamous Epithelial Cell,Urine 1 /hpf (0-4); Urobilinogen,Urine <2.0 mg/dL (<2.0); WBC,Urine 7 /hpf (0-5)
[2023-11-02] MEDS: MORPHINE SULFATE 4 MG/ML SYRINGE IV PRN (02:29)
[2023-11-02] MEDS: IPRATROPIUM-ALBUTEROL 3 ML NEB INHALATION PRN (02:37)
--- NOTE | 2023-11-02 05:47 | P.CNPUL ---
History of Present Illness Consult date: 11/02/23 Requesting physician: Kavya Lara Reason for consult: other (Metastatic lung cancer and recurrent pleural effusion) Chief complaint: Shortness of breath History of present illness: Patient is a 78-year-old white female with past medical history significant for coronary artery disease with previous PCI/stent, hyperlipidemia, hypertension, diabetes mellitus, hypothyroidism, former tobacco smoker, and recent diagnosis of metastatic lung cancer. At the beginning of September she presented with shortness of breath, severe weakness, and weight loss. A chest CTA done at that time showed a right perihilar mass with possible postobstructive pneumonia, and right-sided pleural effusion. Patient has had a total of 2 right-sided thoracentesis since then. Pleural fluid cytology positive for malignancy, likely representing pulmonary adenocarcinoma. A follow-up PET scan redemonstrated the right upper pulmonary lobe/perihilar masslike consolidation measuring 4.1 x 2.9 cm, along with diffuse metastasis involving multiple osseous structures, neck lymph nodes, mediastinal lymph nodes, right pleural, left mediastinal lymph nodes, left anterior abdominal wall subcutaneous tissue and in the liver. Patient has become established with an oncologist, Dr. Lima. She is also established with radiation oncology. She has not started treatment yet. She returns with progressively worsening shortness of breath, increased weakness, and has been intermittently incontinent of stool. She can no longer ambulate around her house, and there were concerns for possible need for placement. She is currently lying in bed, on 2 L/min nasal cannula, in no acute distress. She is severely weak and requires assistance to sit up. She denies any cough or hemoptysis. She denies any fevers. She denies any chest pain. Chest x-ray on admission redemonstrated the patient's known lung cancer as well as an increased interval size in the right-sided pleural effusion. No obvious pneumonia. CBC on arrival: WBC count 14, hemoglobin 11.8, hematocrit 35.9, platelets 310. BMP on arrival: Sodium 131, potassium 3.7, chloride 92, serum bicarb 27, BUN 28, creatinine 0.65, glucose 215. Urinalysis positive for leukocyte esterase. Patient denies urinary complaints. Afebrile. Vital signs are stable. Review of Systems REVIEW OF SYSTEMS: CONSTITUTIONAL: Admits recent weight loss this year, unable to quantify how much. Admits generalized weakness and fatigue. Denies fevers. EYES: Denies change in vision. EARS, NOSE, MOUTH, THROAT: Denies headaches, denies sore throat. CARDIOVASCULAR: Denies chest pain, palpitations or syncopal episodes. RESPIRATORY: Admits shortness of breath while at rest. Denies any cough, sputum production, hemoptysis, chest pain GASTROINTESTINAL: Admits reduced appetite. Admits some diarrhea and incontinence. Denies abdominal pain, nausea and vomiting. GENITOURINARY: Denies hematuria, denies infections. MUSKULOSKELETAL: Denies pain, denies swelling. INTEGUMENTARY: Denies rash, denies eczema. NEUROLOGICAL: Denies recent memory loss, no recent seizure activity. PSYCHIATRIC: Denies anxiety, denies depression. HEMATOLOGIC/LYMPHATIC: Denies anemia, denies enlarged lymph node Past Medical History Past Medical History: Coronary Artery Disease (CAD), Cancer, Diabetes Mellitus, Hyperlipidemia, Hypertension, Thyroid Disorder Additional Past Medical History / Comment(s): Lung cancer per daughter History of Any Multi-Drug Resistant Organisms: None Reported Past Surgical History: Heart Catheterization With Stent, Hysterectomy, Tonsillectomy Additional Past Surgical History / Comment(s): HEART STENT X2, SIL CAROTIDENDARTECTOMY, SIL CATARACTS Past Anesthesia/Blood Transfusion Reactions: No Reported Reaction Date of Last Stent Placement:: UNKNOWN Past Psychological History: No Psychological Hx Reported Smoking Status: Former smoker Past Alcohol Use History: Rare Past Drug Use History: None Reported - Past Family History Mother Family Medical History: No Reported History Medications and Allergies Home Medications Medication Instructions Recorded Confirmed Type Atorvastatin [Lipitor] 40 mg PO HS 09/16/15 11/01/23 History Bisoprolol-Hctz 2.5-6.25 mg [Ziac 1 tab PO DAILY 09/16/15 11/01/23 History 2.5-6.25 MG] Losartan [Cozaar] 50 mg PO DAILY 09/16/15 11/01/23 History amLODIPine [Norvasc] 10 mg PO DAILY 09/16/15 11/01/23 History Cholecalciferol [Vitamin D3 (25 50 mcg PO DAILY 09/14/23 11/01/23 History Mcg = 1000 Iu)] Levothyroxine Sodium [Synthroid] 125 mcg PO DAILY 09/14/23 11/01/23 History sitaGLIPtin [Januvia] 50 mg PO DAILY 09/14/23 11/01/23 History Escitalopram [Lexapro] 10 mg PO DAILY 09/22/23 11/01/23 History HYDROcodone/APAP 5-325MG [[place] 1 tab PO BID PRN 11/01/23 11/01/23 History 5-325] Ibuprofen/Acetaminophen [Advil 1 tab PO Q6H PRN 11/01/23 11/01/23 History Dual Action 125MG(IBU)-250MG(ACET)] Morphine Sulfate Ir [MSIR] 15 mg PO BID 11/01/23 11/01/23 History Naloxone HCl [Narcan] 4 mg NASAL DIRECTED PRN 11/01/23 11/01/23 History Allergies Allergy/AdvReac Type Severity Reaction Status Date / Time Sulfa (Sulfonamide Allergy Rash/Hives Verified 11/01/23 19:04 Antibiotics) ibuprofen [From Motrin] AdvReac Unknown Verified 11/01/23 19:04 Physical Exam Vitals: Vital Signs Temp Pulse Pulse Resp BP BP Pulse Ox 11/02/23 02:38 70 11/02/23 02:00 98.6 F 80 16 139/77 96 11/01/23 21:58 97.4 F L 77 20 134/57 97 11/01/23 21:45 73 18 122/64 97 11/01/23 20:00 75 19 128/74 97 11/01/23 19:05 72 16 120/67 97 11/01/23 19:00 74 22 120/61 96 11/01/23 18:00 73 24 117/65 97 11/01/23 17:00 111/61 11/01/23 16:00 78 23 144/69 99 11/01/23 15:52 86 24 144/69 91 L 11/01/23 15:37 98.0 F 80 20 126/72 93 L Intake and Output 11/01/23 11/01/23 11/02/23 14:59 22:59 06:59 Other: Weight 68.039 kg GENERAL EXAM: Alert, 78-year-old white female laying in bed, weak, requiring assistance to sit up, comfortable in no apparent distress. HEAD: Normocephalic and atraumatic EYES: Normal reaction of pupils, equal size. NOSE: Clear with pink turbinates. THROAT: No erythema or exudates. NECK: No masses, no JVD. CHEST: No chest wall deformity. LUNGS: Equal air entry with faint inspiratory and expiratory wheezing on the right side and focal dullness at the right base. On 2 L/min nasal cannula. No conversational dyspnea or accessory muscle use.. CVS: S1 and S2 normal with no audible murmur, regular rhythm. No extra heart sounds ABDOMEN: No hepatosplenomegaly, active bowel sounds, no guarding or rigidity. SPINE: No scoliosis or deformity SKIN: No rashes CENTRAL NERVOUS SYSTEM: No focal deficits, tone is normal in all 4 extremities. EXTREMITIES: There is mild nonpitting edema bilaterally.. No clubbing, or cyanosis. Peripheral pulses are intact. Results - Laboratory Findings CBC and BMP: 11/01/23 16:33 11/01/23 16:33 PT/INR, D-dimer PT 10.8 sec (10.0-12.5) 11/01/23 16:33 INR 1.0 (<1.2) 11/01/23 16:33 Abnormal lab findings: Abnormal Labs 11/01/23 11/01/23 11/01/23 16:33 16:33 16:33 WBC 14.0 H Neutrophils # 12.3 H Lymphocytes # 0.8 L APTT 21.8 L Sodium Chloride BUN Glucose Magnesium AST Urine Blood Trace H Ur Leukocyte Esterase Large H Urine WBC 7 H Hyaline Casts 10 H Urine Mucus Rare H 11/01/23 16:33 WBC Neutrophils # Lymphocytes # APTT Sodium 131 L Chloride 92 L BUN 28 H Glucose 215 H Magnesium 1.5 L AST 39 H Urine Blood Ur Leukocyte Esterase Urine WBC Hyaline Casts Urine Mucus - Diagnostic Findings Chest x-ray: image reviewed Assessment and Plan Assessment: Metastatic lung cancer, with diffuse involvement of many osseous structures, neck lymph node, mediastinal lymph nodes, right pleural, left mediastinal lymph nodes, left anterior abdominal wall subcutaneous tissue and in the liver. Recurrent malignant right-sided pleural effusion, cytology positive for metastatic carcinoma, likely pulmonary adenocarcinoma. Patient had a right-sided thoracentesis draining a total of 1.2 L on 10/02/2023 and again on 10/24/2023 draining approximately 1.1 L. Acute hypoxemic respiratory failure, secondary to above, chest x-ray redemonstrates the above-mentioned malignancy as well as an interval enlargement of the right-sided pleural effusion. There is pulmonary vascular congestion on the right. Leukocytosis, doubt infectious process within the lung Former tobacco smoker History of coronary artery disease with previous PCI/stent History of hyperlipidemia History of hypertension Diabetes mellitus, type II History of hypothyroidism Plan: This is a joint evaluation that was done along with the nurse practitioner. I also contacted her oncologist, Dr. Lima to discuss the case. Also discussed the case with the cardiothoracic surgery team. In summary, the patient has metastatic lung cancer with a malignant right-sided pleural effusion. The patient has stage IV lung cancer/adenocarcinoma, and the recent PET/CT that was done on this patient on 10/22/2023 showed diffuse metastatic disease with osseous structures involved the largest of which is in the right iliac bone as the patient had a 6.8 x 4.6 cm area with cortical breakdown and expansile soft tissue component in addition to involvement of the anterior inferior L4 vertebral body, and right scapula and T3 vertebral spine and multiple other tiny foci. The patient also had extensive pleural involvement along with a malignant right-sided pleural effusion consistent with a carcinoma, lymphadenopathy involving the mediastinum including the left supraclavicular, right paratracheal, left hilar and subcarinal area. Within the abdomen, there was a right hepatic lobe lesion. The patient was seen by medical oncology and she was deemed not to be a good candidate for further treatment as the patient has a very poor performance and functional status. Her last thoracentesis was done on 11/11/2023 and this was ultrasound-guided with a total of 1.1 L of fluid was a spirated from the right lung. Based on the repeat chest x-ray, the patient has increased in right-sided pleural effusion and ultrasound of the chest also confirmed the finding with an 11.4 cm pocket within the right hemithorax. I discussed the need for Pleurx catheter for palliative reasons. I think at the end of my discussion, it was clear to me that the patient was headed towards implementing hospice care. I think it is reasonable based on her age and comorbidities and diffuse bulky disease that the patient has encountered. Based on that, a consultation was placed for hospice care. No plans for thoracentesis or Pleurx catheter insertion at this point in time. This evaluation was done more than 30 minutes. Time with Patient: Greater than 30
[2023-11-02] MEDS ORDERED: MAGNESIUM HYDROXIDE 2,400 MG/30 ML CUP PO PRN (10:46)
[2023-11-02] MEDS ORDERED: LORazepam 2 MG/ML INJ IV PRN (10:47)
[2023-11-02] MEDS: MORPHINE SULFATE 4 MG/ML SYRINGE IVP STA (10:59)
[2023-11-02] MEDS: SENNOSIDES-DOCUSATE SODIUM 1 EACH TAB PO SCH (11:00)
[2023-11-02] MEDS: LIDOCAINE 4% PATCH TOPICAL SCH (11:01)
[2023-11-02] MEDS ORDERED: DEXTROSE 50% SYRINGE 50 ML IVP PRN ×2 (13:09)
[2023-11-02] MEDS: HYDROcodone/APAP 5-325MG 1 EACH TAB PO PRN (13:21)
[2023-11-02] MEDS: MORPHINE SULFATE 4 MG/ML SYRINGE IVP PRN (13:29)
--- NOTE | 2023-11-02 13:32 | P.HPIM ---
History of Present Illness H&P Date: 11/02/23 This is a pleasant 78-year-old female with medical history significant for hypertension, diabetes mellitus, hyperlipidemia, hypothyroidism, coronary artery disease with prior cardiac stenting, carotid artery disease, former smoker. Patient was recently diagnosed with metastatic lung disease A chest CTA done at that time showed a right perihilar mass with possible postobstructive pneumonia, and right-sided pleural effusion requiring paracentesis x 2. Had a PET scan done on October 22, 2023. Findings are suggestive of a liver mass as well as a pathologic fracture at T3, there are also other osseous structions and lymph nodes affected. She is also having a recurrent right-sided pleural effusion she did undergo thoracentesis with pulmonary most recently on October 02, 2023. Pleural fluid is positive for metastatic carcinoma suggestive of pulmonary adenocarcinoma. Patient is seen today on the medical floor she is currently reporting increased weakness, shortness of breath, and incontinence of urine and stool over the last 1 to 2 weeks. She has been set up with Dr Lu with Rad- Onc outpatient and was supposed to start palliative radiation this week per the patient. Workup this admission shows a mild increase in pulmonary edema with known right-sided malignancy with associated pleural effusion on chest x-ray. The pleural effusion appears larger than previous. EKG reveals sinus rhythm with a heart rate of [address] or T wave changes. Patient was admitted to the hospital with a consult placed to pulmonary services. Patient is scheduled to undergo a chest ultrasound with possible placement of a Pleurx catheter today. Her initial blood work reveals a white blood cell count of 14.0, sodium level of 131, potassium 3.7, BUN of 28, creatinine of 0.65, glucose of 215, magnesium 1.5. Her urinalysis is not suggestive of infection, viral panel is negative for influenza, COVID or RSV. Patient is currently on 2 L of oxygen and she has been afebrile. She is requesting to talk with hospice services about discharge planning and feels that she is ready for transition to hospice at a facility. She feels she is unable to care for herself at home and she is no longer able to get around. REVIEW OF SYSTEMS: CONSTITUTIONAL: No fever, no malaise, no fatigue. HEENT: No recent visual problems or hearing problems. Denied any sore throat. CARDIOVASCULAR: No chest pain, orthopnea, PND, no palpitations, no syncope. PULMONARY: No shortness of breath, no cough, no hemoptysis. GASTROINTESTINAL: No diarrhea, no nausea, no vomiting, no abdominal pain. NEUROLOGICAL: No headaches, no weakness, no numbness. HEMATOLOGICAL: Denies any bleeding or petechiae. GENITOURINARY: Denies any burning micturition, frequency, or urgency. MUSCULOSKELETAL/RHEUMATOLOGICAL: Denies any joint pain, swelling, or any muscle pain. Reports increased weakness. ENDOCRINE: Denies any polyuria or polydipsia. The rest of the 14-point review of systems is negative. PHYSICAL EXAMINATION: GENERAL: The patient is alert and oriented x3, not in any acute distress. Well developed, well nourished. HEENT: Pupils are round and equally reacting to light. EOMI. No scleral icterus. No conjunctival pallor. Normocephalic, atraumatic. No pharyngeal erythema. No thyromegaly. CARDIOVASCULAR: S1 and S2 present. No murmurs, rubs, or gallops. PULMONARY: Chest is clear to auscultation, no wheezing or crackles. Diminished right posterior lung. ABDOMEN: Soft, nontender, nondistended, normoactive bowel sounds. No palpable organomegaly. MUSCULOSKELETAL: No joint swelling or deformity. EXTREMITIES: No cyanosis, clubbing, or pedal edema. NEUROLOGICAL: Gross neurological examination did not reveal any focal deficits. SKIN: No rashes. Assessment and plan Generalized weakness due to metastatic cancer with disease progression Metastatic adenocarcinoma pulmonary origin with involvement of osseous structures, lymphnodes, liver, and right pleural fluid. Recurrent right sided thoracentesis requiring thoracentesis x 2 patient is considered for pleurex catheter placement and is scheduled to undergo chest ultrasound today. Acute hypoxemic respiratory failure secondary to above Hyponatremia hypervolemic Hypertension currently normotensive Hypomagnesemia was replaced and will repeat magnesium levels in the AM Hx of coronary artery disease with prior PCI maintained on aspirin 81 mg daily which has been resumed Hyperlipidemia on statin therapy was resumed Diabetes mellitus type 2 maintained on januvia was resumed and also patient has been placed on diabetes mellitus type 2 Hx of hypothyroidism resumed on synthroid GI prophylaxis [facility] and social work have been consulted for discharge planning. Patient will be evaluated by pulmonary and oncology. Possible pleurex catheter placement. The impression and plan of care has been dictated by Lindsey Jorgensen, Nurse Practitioner as directed. Dr. Meeta MD I have performed a history and physical examination and medical decision making of this patient, discussed the same with the dictator, and agree with the dictators assessment and plan as written, documented as a scribe. Based on total visit time, I have performed more than 50% of this visit. Past Medical History Past Medical History: Coronary Artery Disease (CAD), Cancer, Diabetes Mellitus, Hyperlipidemia, Hypertension, Thyroid Disorder Additional Past Medical History / Comment(s): Lung cancer per daughter History of Any Multi-Drug Resistant Organisms: None Reported Past Surgical History: Heart Catheterization With Stent, Hysterectomy, Tonsillectomy Additional Past Surgical History / Comment(s): HEART STENT X2, SIL CAROTIDENDARTECTOMY, SIL CATARACTS Past Anesthesia/Blood Transfusion Reactions: No Reported Reaction Date of Last Stent Placement:: UNKNOWN Past Psychological History: No Psychological Hx Reported Smoking Status: Former smoker Past Alcohol Use History: Rare Past Drug Use History: None Reported - Past Family History Mother Family Medical History: No Reported History Medications and Allergies Home Medications Medication Instructions Recorded Confirmed Type Atorvastatin [Lipitor] 40 mg PO HS 09/16/15 11/01/23 History Bisoprolol-Hctz 2.5-6.25 mg [Ziac 1 tab PO DAILY 09/16/15 11/01/23 History 2.5-6.25 MG] Losartan [Cozaar] 50 mg PO DAILY 09/16/15 11/01/23 History amLODIPine [Norvasc] 10 mg PO DAILY 09/16/15 11/01/23 History Cholecalciferol [Vitamin D3 (25 50 mcg PO DAILY 09/14/23 11/01/23 History Mcg = 1000 Iu)] Levothyroxine Sodium [Synthroid] 125 mcg PO DAILY 09/14/23 11/01/23 History sitaGLIPtin [Januvia] 50 mg PO DAILY 09/14/23 11/01/23 History Escitalopram [Lexapro] 10 mg PO DAILY 09/22/23 11/01/23 History HYDROcodone/APAP 5-325MG [[place] 1 tab PO BID PRN 11/01/23 11/01/23 History 5-325] Ibuprofen/Acetaminophen [Advil 1 tab PO Q6H PRN 11/01/23 11/01/23 History Dual Action 125MG(IBU)-250MG(ACET)] Morphine Sulfate Ir [MSIR] 15 mg PO BID 11/01/23 11/01/23 History Naloxone HCl [Narcan] 4 mg NASAL DIRECTED PRN 11/01/23 11/01/23 History Allergies Allergy/AdvReac Type Severity Reaction Status Date / Time Sulfa (Sulfonamide Allergy Rash/Hives Verified 11/01/23 19:04 Antibiotics) ibuprofen [From Motrin] AdvReac Unknown Verified 11/01/23 19:04 Physical Exam Vitals: Vital Signs Temp Pulse Pulse Resp BP BP Pulse Ox 11/02/23 02:38 70 11/02/23 02:00 98.6 F 80 16 139/77 96 11/01/23 22:00 16 11/01/23 21:58 97.4 F L 77 20 134/57 97 11/01/23 21:45 73 18 122/64 97 11/01/23 20:00 75 19 128/74 97 11/01/23 19:05 72 16 120/67 97 11/01/23 19:00 74 22 120/61 96 11/01/23 18:00 73 24 117/65 97 11/01/23 17:00 111/61 11/01/23 16:00 78 23 144/69 99 11/01/23 15:52 86 24 144/69 91 L 11/01/23 15:37 98.0 F 80 20 126/72 93 L Intake and Output 11/01/23 11/02/23 11/02/23 22:59 06:59 14:59 Intake Total 600 Balance 600 Intake: Oral 600 Other: Voiding Method Bedpan External Catheter # Voids 2 Weight 68.039 kg Results CBC & Chem 7: 11/01/23 16:33 11/01/23 16:33 Labs: Abnormal Lab Results - Last 24 Hours (Table) 11/01/23 11/01/23 11/01/23 Range/Units 16:33 16:33 16:33 WBC 14.0 H (3.8-10.6) k/uL Neutrophils # 12.3 H (1.3-7.7) k/uL Lymphocytes # 0.8 L (1.0-4.8) k/uL APTT 21.8 L (22.0-30.0) sec Sodium (137-145) mmol/L Chloride (98-107) mmol/L BUN (7-17) mg/dL Glucose (74-99) mg/dL Magnesium (1.6-2.3) mg/dL AST (14-36) U/L Urine Blood Trace H (Negative) Ur Leukocyte Esterase Large H (Negative) Urine WBC 7 H (0-5) /hpf Hyaline Casts 10 H (0-2) /lpf Urine Mucus Rare H (None) /hpf 11/01/23 Range/Units 16:33 WBC (3.8-10.6) k/uL Neutrophils # (1.3-7.7) k/uL Lymphocytes # (1.0-4.8) k/uL APTT (22.0-30.0) sec Sodium 131 L (137-145) mmol/L Chloride 92 L (98-107) mmol/L BUN 28 H (7-17) mg/dL Glucose 215 H (74-99) mg/dL Magnesium 1.5 L (1.6-2.3) mg/dL AST 39 H (14-36) U/L Urine Blood (Negative) Ur Leukocyte Esterase (Negative) Urine WBC (0-5) /hpf Hyaline Casts (0-2) /lpf Urine Mucus (None) /hpf Thrombosis Risk Factor Assmnt - Choose All That Apply Any of the Below Risk Factors Present?: Yes Each Factor Represents 1 point: Medical pt on bed rest, Obesity (BMI >25), Swollen legs (current) Other Risk Factors: Yes Each Risk Factor Represents 2 Points: Malignancy Each Risk Factor Represents 3 Points: Age 75 years or older Other congenital or acquired thrombophilia - If yes, enter type in comment: No Thrombosis Risk Factor Assessment Total Risk Factor Score: 8 Thrombosis Risk Factor Assessment Level: High Risk Assessment and Plan Time with Patient: Less than 30
--- NOTE | 2023-11-02 13:51 | US ---
EXAMINATION TYPE: US chest DATE OF EXAM: 11/02/2023 COMPARISON: 11/01/2023 CLINICAL INDICATION: Female, 78 years old with history of rt side, malig pl effusion; TECHNIQUE: Targeted ultrasound of the posterior lower right hemithorax EXAM MEASUREMENTS: Right Pleural Effusion pocket size: 11.4 cm Right skin surface to fluid distance: 1.8 cm Right side marked for possible thoracentesis outside the dept. Pulmonologists are able to review the images in the patient?s EMR. IMPRESSIONS: Right chest wall marked for thoracentesis.
[2023-11-02] MEDS: FUROSEMIDE 10 MG/ML 2 ML VIAL IV ONE (14:13)
[2023-11-02 17:11] LABS: Glucose,Whole Blood 219 mg/dL (70-110)
--- NOTE | 2023-11-02 17:11 | P.GSCN ---
History of Present Illness Consult date: 11/02/23 Reason for Consult: Recurrent malignant right pleural effusions Requesting physician: Deep Miller History of present illness: This is a 78-year-old female patient who follows on outpatient basis with Dr. Viv Grant for her primary care service, Dr. Lima for her oncology care and with Dr. Alan for her pulmonary management. She has a past medical history significant for recent diagnosis of metastatic lung cancer, recurrent right pleural effusions with cytology positive for malignancy, hypertension, hyp erlipidemia, coronary artery disease status post PCI, diabetes mellitus type 2, hypothyroidism, remote history of nicotine dependence, quit smoking around 30 years ago, history of bilateral carotid artery disease with history of previous carotid artery stent, and frequent constipation. On November 01, 2023 the patient presented to the emergency department here at [facility] with complaints of increased weakness, back pain, occasional shortness of breath and incontinence for about a 1 week period. She denies any recent fever, chills, nausea, vomiting, diarrhea, headache, cough, chest pain/pressure, visual disturbances, presyncope or syncope. A chest x-ray was completed in the emergency department which showed mild increase in pulmonary edema with known right-sided malignancy with associated pleural effusion. A twelve-lead EKG was completed which showed normal sinus rhythm with a heart rate of 86 bpm. Subsequently, due to the findings of pleural effusion on the chest x-ray a chest ultrasound was completed which demonstrated a right-sided pleural effusion pocket size measuring 11.4 cm. Initial laboratory results showed a WBC count of 14.0, hemoglobin 11.8, hematocrit 35.9, platelets 310, PT 10.8, INR 1.0, PTT 21.8, sodium 131, potassium 3.7, chloride 92, BUN 28, creatinine 0.65, glucose 215, magnesium 1.5, AST 39, ALT 22, and testing for influenza type A, type B, RSV and COVID-19 showed not detected. Due to the findings of recurrent right pleural effusion a consult was placed to cardiothoracic surgery for further evaluation and treatment recommendations including placement of Pleurx catheter. Review of Systems A 14 point review of systems was completed and was negative except as mentioned in the HPI. Past Medical History Past Medical History: Coronary Artery Disease (CAD), Cancer, Diabetes Mellitus, Hyperlipidemia, Hypertension, Thyroid Disorder Additional Past Medical History / Comment(s): Lung cancer per daughter History of Any Multi-Drug Resistant Organisms: None Reported Past Surgical History: Heart Catheterization With Stent, Hysterectomy, Tonsillectomy Additional Past Surgical History / Comment(s): HEART STENT X2, SIL CAROTIDENDARTECTOMY, SIL CATARACTS Past Anesthesia/Blood Transfusion Reactions: No Reported Reaction Date of Last Stent Placement:: UNKNOWN Past Psychological History: No Psychological Hx Reported Smoking Status: Former smoker Past Alcohol Use History: Rare Past Drug Use History: None Reported - Past Family History Mother Family Medical History: No Reported History Medications and Allergies Home Medications Medication Instructions Recorded Confirmed Type Atorvastatin [Lipitor] 40 mg PO HS 09/16/15 11/01/23 History Bisoprolol-Hctz 2.5-6.25 mg [Ziac 1 tab PO DAILY 09/16/15 11/01/23 History 2.5-6.25 MG] Losartan [Cozaar] 50 mg PO DAILY 09/16/15 11/01/23 History amLODIPine [Norvasc] 10 mg PO DAILY 09/16/15 11/01/23 History Cholecalciferol [Vitamin D3 (25 50 mcg PO DAILY 09/14/23 11/01/23 History Mcg = 1000 Iu)] Levothyroxine Sodium [Synthroid] 125 mcg PO DAILY 09/14/23 11/01/23 History sitaGLIPtin [Januvia] 50 mg PO DAILY 09/14/23 11/01/23 History Escitalopram [Lexapro] 10 mg PO DAILY 09/22/23 11/01/23 History HYDROcodone/APAP 5-325MG [[place] 1 tab PO BID PRN 11/01/23 11/01/23 History 5-325] Ibuprofen/Acetaminophen [Advil 1 tab PO Q6H PRN 11/01/23 11/01/23 History Dual Action 125MG(IBU)-250MG(ACET)] Morphine Sulfate Ir [MSIR] 15 mg PO BID 11/01/23 11/01/23 History Naloxone HCl [Narcan] 4 mg NASAL DIRECTED PRN 11/01/23 11/01/23 History Allergies Allergy/AdvReac Type Severity Reaction Status Date / Time Sulfa (Sulfonamide Allergy Rash/Hives Verified 11/01/23 19:04 Antibiotics) ibuprofen [From Motrin] AdvReac Unknown Verified 11/01/23 19:04 Surgical - Exam Vital Signs Temp Pulse Resp BP Pulse Ox 98.0 F 80 20 126/72 93 L 11/01/23 15:37 11/01/23 15:37 11/01/23 15:37 11/01/23 15:37 11/01/23 15:37 - General well developed, well nourished, no distress, no pain, chronically ill - Eyes PERRL, normal ocular movement, no pale, no icteric - ENT normal pinna, normal nares, normal mucosa, no hearing loss, no congestion, dentures - Neck Neck is supple, no lymphadenopathy. no masses, no bruits, trachea midline, no venous distension - Respiratory Respirations are symmetrical and nonlabored. Lung sounds essentially clear throughout, diminished to her right lower lobe. No wheezes, rhonchi or crackles. - Cardiovascular Regular rhythm and rate. S1 and S2 present, negative for S3, gallop or murmur. +1 edema to her bilateral lower extremities. - Abdomen Abdomen is soft, nontender nondistended. Active bowel sounds present all 4 abdominal quadrants. No guarding or rigidity. No organomegaly appreciated. - Genitourinary Deferred - Rectum Deferred - Integumentary Skin is warm and dry. No clubbing or cyanosis is present. no rash, no growths, no abnormal pigmentation - Neurologic No focal deficits. - Musculoskeletal Moves all 4 extremities with equal strength bilateral. - Psychiatric oriented to time, oriented to person, oriented to place, speech is normal, memory intact Results - Labs 11/01/23 16:33 11/01/23 16:33 Abnormal Lab Results - Last 24 Hours (Table) 11/01/23 11/01/23 11/01/23 Range/Units 16:33 16:33 16:33 WBC 14.0 H (3.8-10.6) k/uL Neutrophils # 12.3 H (1.3-7.7) k/uL Lymphocytes # 0.8 L (1.0-4.8) k/uL APTT 21.8 L (22.0-30.0) sec Sodium (137-145) mmol/L Chloride (98-107) mmol/L BUN (7-17) mg/dL Glucose (74-99) mg/dL Magnesium (1.6-2.3) mg/dL AST (14-36) U/L Urine Blood Trace H (Negative) Ur Leukocyte Esterase Large H (Negative) Urine WBC 7 H (0-5) /hpf Hyaline Casts 10 H (0-2) /lpf Urine Mucus Rare H (None) /hpf 11/01/23 Range/Units 16:33 WBC (3.8-10.6) k/uL Neutrophils # (1.3-7.7) k/uL Lymphocytes # (1.0-4.8) k/uL APTT (22.0-30.0) sec Sodium 131 L (137-145) mmol/L Chloride 92 L (98-107) mmol/L BUN 28 H (7-17) mg/dL Glucose 215 H (74-99) mg/dL Magnesium 1.5 L (1.6-2.3) mg/dL AST 39 H (14-36) U/L Urine Blood (Negative) Ur Leukocyte Esterase (Negative) Urine WBC (0-5) /hpf Hyaline Casts (0-2) /lpf Urine Mucus (None) /hpf Diabetes panel 11/01/23 Range/Units 16:33 Sodium 131 L (137-145) mmol/L Potassium 3.7 (3.5-5.1) mmol/L Chloride 92 L (98-107) mmol/L Carbon Dioxide 27 (22-30) mmol/L BUN 28 H (7-17) mg/dL Creatinine 0.65 (0.52-1.04) mg/dL Glucose 215 H (74-99) mg/dL Calcium 9.8 (8.4-10.2) mg/dL AST 39 H (14-36) U/L ALT 22 (4-34) U/L Alkaline Phosphatase 86 (38-126) U/L Total Protein 7.1 (6.3-8.2) g/dL Albumin 3.7 (3.5-5.0) g/dL Calcium panel 11/01/23 Range/Units 16:33 Calcium 9.8 (8.4-10.2) mg/dL Phosphorus 3.3 (2.5-4.5) mg/dL Albumin 3.7 (3.5-5.0) g/dL Pituitary panel 11/01/23 Range/Units 16:33 Sodium 131 L (137-145) mmol/L Potassium 3.7 (3.5-5.1) mmol/L Chloride 92 L (98-107) mmol/L Carbon Dioxide 27 (22-30) mmol/L BUN 28 H (7-17) mg/dL Creatinine 0.65 (0.52-1.04) mg/dL Glucose 215 H (74-99) mg/dL Calcium 9.8 (8.4-10.2) mg/dL Adrenal panel 11/01/23 Range/Units 16:33 Sodium 131 L (137-145) mmol/L Potassium 3.7 (3.5-5.1) mmol/L Chloride 92 L (98-107) mmol/L Carbon Dioxide 27 (22-30) mmol/L BUN 28 H (7-17) mg/dL Creatinine 0.65 (0.52-1.04) mg/dL Glucose 215 H (74-99) mg/dL Calcium 9.8 (8.4-10.2) mg/dL Total Bilirubin 0.9 (0.2-1.3) mg/dL AST 39 H (14-36) U/L ALT 22 (4-34) U/L Alkaline Phosphatase 86 (38-126) U/L Total Protein 7.1 (6.3-8.2) g/dL Albumin 3.7 (3.5-5.0) g/dL - Imaging Chest x-ray: report reviewed, image reviewed Assessment and Plan Assessment: Recurrent right-sided malignant effusion Metastatic adenocarcinoma lung Acute hypoxic respiratory failure secondary to above History of hypertension History of coronary artery disease with prior PCI Hyperlipidemia Diabetes mellitus type 2 Hypothyroidism History of carotid disease, status post carotid stenting Medical debility Plan: The patient was seen and examined at her bedside on the fifth floor medical oncology unit. Her chart and diagnostics were reviewed. A family member is present at her bedside during the examination. Her case was discussed in detail with Dr. Sly Lopes from cardiothoracic surgery. Treatment options discussed with the patient including placement of right sided Pleurx catheter. Risks and benefits of the procedure were discussed. At this time the patient wishes to think about having a Pleurx catheter placement, she is not sure she is willing to undergo the procedure at this time. We will continue to follow the patient, and allow her discuss her treatment options with her family. Medical management and other comorbidities per primary care service and other consultants. More re commendations to follow based on patient's clinical course. Thank you Dr. Miller for this consult and we look forward to working with you in the care of this patient. I have personally seen and examined the patient, performed the documentation and the assessment and plan as written. Number of minutes spent on the visit: 30. JD Ontiveros
--- NOTE | 2023-11-02 17:43 | P.CONS ---
History of Present Illness - Reason for Consult Consult date: 11/02/23 Lung adenocarcinoma Requesting physician: Pranay Dixon - Chief Complaint Generalized weakness, uncontrolled pain of malignancy - History of Present Illness Mrs. Ortiz is a 78-year-old female patient of Dr. Lima who initially presented with progressive dyspnea and fatigue to [facility], 09/14/2023. CTA did not show a PE but she was positive for large right pleural effusion, right perihilar soft tissue density extending to the right upper lobe, multiple prominent mediastinal lymph nodes and a large left kidney cyst. 09/15/2023 thoracentesis revealed metastatic carcinoma, IHC positive for MOC 3 1 TTF-11, Napsin was negative, CK7+, DION negative, felt to represent adenocarcinoma of the lung. PD-L1 5%-10%, liquid biopsy revealed a MET amplification. 10/19/2023 CT of the brain was negative. 10/20/2023 staging PET scan showed suspicious uptake in neck, mediastinal and hilar nodes, right pleural fluid and lung, liver lesions, bone lesions including right shoulder, spine at multiple levels and a very large destructive soft tissue mass to the right iliac bone. Patient had another thoracentesis 10/24/2023. She was seen in the office by Dr. Lima 10/27/2023. Daughter was present. All of the results of recent testing were discussed. Patient's performance status is 3, was not felt that she would be a good candidate for systemic therapy. It was felt that the patient would best be served with comfort/hospice care. Recommended palliative radiation to painful iliac bone and possibly shoulder. Patient did see Dr. Lu the same day and was due to start radiation today. It was also felt that a Pleurx catheter placement would provide respiratory palliation for recurrent malignant pleural effusion. When seen today patient reports that she is too weak to take care of herself, she can no longer live on her own. She is interested in going to a longterm. She is extremely uncomfortable, she cannot even position herself due to the pain. She is not reporting any significant shortness of breath but states that it is reminding her of how she feels when pleural effusion is worsening. Review of Systems 10 point review of systems is as stated in HPI Past Medical History Past Medical History: Coronary Artery Disease (CAD), Cancer, Diabetes Mellitus, Hyperlipidemia, Hypertension, Thyroid Disorder Additional Past Medical History / Comment(s): Lung cancer per daughter History of Any Multi-Drug Resistant Organisms: None Reported Past Surgical History: Heart Catheterization With Stent, Hysterectomy, Tonsillectomy Additional Past Surgical History / Comment(s): HEART STENT X2, SIL CAROTIDENDARTECTOMY, SIL CATARACTS Past Anesthesia/Blood Transfusion Reactions: No Reported Reaction Date of Last Stent Placement:: UNKNOWN Past Psychological History: No Psychological Hx Reported Smoking Status: Former smoker Past Alcohol Use History: Rare Past Drug Use History: None Reported - Past Family History Mother Family Medical History: No Reported History Medications and Allergies Home Medications Medication Instructions Recorded Confirmed Type Atorvastatin [Lipitor] 40 mg PO HS 09/16/15 11/01/23 History Bisoprolol-Hctz 2.5-6.25 mg [Ziac 1 tab PO DAILY 09/16/15 11/01/23 History 2.5-6.25 MG] Losartan [Cozaar] 50 mg PO DAILY 09/16/15 11/01/23 History amLODIPine [Norvasc] 10 mg PO DAILY 09/16/15 11/01/23 History Cholecalciferol [Vitamin D3 (25 50 mcg PO DAILY 09/14/23 11/01/23 History Mcg = 1000 Iu)] Levothyroxine Sodium [Synthroid] 125 mcg PO DAILY 09/14/23 11/01/23 History sitaGLIPtin [Januvia] 50 mg PO DAILY 09/14/23 11/01/23 History Escitalopram [Lexapro] 10 mg PO DAILY 09/22/23 11/01/23 History HYDROcodone/APAP 5-325MG [[place] 1 tab PO BID PRN 11/01/23 11/01/23 History 5-325] Ibuprofen/Acetaminophen [Advil 1 tab PO Q6H PRN 11/01/23 11/01/23 History Dual Action 125MG(IBU)-250MG(ACET)] Morphine Sulfate Ir [MSIR] 15 mg PO BID 11/01/23 11/01/23 History Naloxone HCl [Narcan] 4 mg NASAL DIRECTED PRN 11/01/23 11/01/23 History Allergies Allergy/AdvReac Type Severity Reaction Status Date / Time Sulfa (Sulfonamide Allergy Rash/Hives Verified 11/01/23 19:04 Antibiotics) ibuprofen [From Motrin] AdvReac Unknown Verified 11/01/23 19:04 Physical Exam Vitals: Vital Signs Temp Pulse Pulse Resp BP BP Pulse Ox 11/02/23 02:38 70 11/02/23 02:00 98.6 F 80 16 139/77 96 11/01/23 22:00 16 11/01/23 21:58 97.4 F L 77 20 134/57 97 11/01/23 21:45 73 18 122/64 97 11/01/23 20:00 75 19 128/74 97 11/01/23 19:05 72 16 120/67 97 11/01/23 19:00 74 22 120/61 96 11/01/23 18:00 73 24 117/65 97 11/01/23 17:00 111/61 11/01/23 16:00 78 23 144/69 99 11/01/23 15:52 86 24 144/69 91 L 11/01/23 15:37 98.0 F 80 20 126/72 93 L Intake and Output 11/01/23 11/02/23 11/02/23 22:59 06:59 14:59 Intake Total 600 Balance 600 Intake: Oral 600 Other: Voiding Method Bedpan External Catheter # Voids 2 Weight 68.039 kg - Constitutional General appearance: cooperative, mild distress, thin - EENT Eyes: anicteric sclerae, EOMI ENT: hearing grossly normal - Respiratory Restricted respirations secondary to discomfort, breath sounds on the right diminished - Cardiovascular Skin warm and dry to the touch leg Peripheral Edema: bilateral: None - Neurologic Neurologic: CNII-XII intact - Musculoskeletal Musculoskeletal: generalized weakness - Psychiatric Psychiatric: A&O x's 3, appropriate affect, intact judgment & insight Results CBC & Chem 7: 11/01/23 16:33 11/01/23 16:33 Labs: Abnormal Lab Results - Last 24 Hours (Table) 11/01/23 11/01/23 11/01/23 Range/Units 16:33 16:33 16:33 WBC 14.0 H (3.8-10.6) k/uL Neutrophils # 12.3 H (1.3-7.7) k/uL Lymphocytes # 0.8 L (1.0-4.8) k/uL APTT 21.8 L (22.0-30.0) sec Sodium (137-145) mmol/L Chloride (98-107) mmol/L BUN (7-17) mg/dL Glucose (74-99) mg/dL Magnesium (1.6-2.3) mg/dL AST (14-36) U/L Urine Blood Trace H (Negative) Ur Leukocyte Esterase Large H (Negative) Urine WBC 7 H (0-5) /hpf Hyaline Casts 10 H (0-2) /lpf Urine Mucus Rare H (None) /hpf 11/01/23 Range/Units 16:33 WBC (3.8-10.6) k/uL Neutrophils # (1.3-7.7) k/uL Lymphocytes # (1.0-4.8) k/uL APTT (22.0-30.0) sec Sodium 131 L (137-145) mmol/L Chloride 92 L (98-107) mmol/L BUN 28 H (7-17) mg/dL Glucose 215 H (74-99) mg/dL Magnesium 1.5 L (1.6-2.3) mg/dL AST 39 H (14-36) U/L Urine Blood (Negative) Ur Leukocyte Esterase (Negative) Urine WBC (0-5) /hpf Hyaline Casts (0-2) /lpf Urine Mucus (None) /hpf Assessment and Plan (1) Malignant pleural effusion Current Visit: Yes Status: Acute Priority: High Code(s): J91.0 - MALIGNANT PLEURAL EFFUSION SNOMED Code(s): 074077499 (2) Cancer related pain Current Visit: Yes Status: Acute Priority: High Code(s): G89.3 - NEOPLASM RELATED PAIN (ACUTE) (CHRONIC) SNOMED Code(s): 41095595751361 (3) Generalized weakness Current Visit: Yes Status: Acute Priority: High Code(s): R53.1 - WEAKNESS SNOMED Code(s): 55514817 (4) Lung cancer metastatic to bone Current Visit: Yes Status: Acute Priority: High Code(s): C34.90 - MALIGNANT NEOPLASM OF UNSP PART OF UNSP BRONCHUS OR LUNG; C79.51 - SECONDARY MALIGNANT NEOPLASM OF BONE SNOMED Code(s): 51801629 Plan: Generalized weakness -Patient's main complaint, progressive, secondary to malignancy. Patient reports that she lives alone and is no longer able to care for herself. She reports wanting to be admitted to an extended care facility. Her children live in [place]. It was discussed that patient would [place] had easy access to her. She is in agreement for the same. This was discussed with the case resource manager who is working on getting the patient admitted to an extended care facility. Lung adenocarcinoma, metastatic disease -Diagnosis outlined in HPI -Patient has met with Dr. Lima. Performance status not felt to be adequate to receive aggressive treatment. Patient is weak and unable to get to and from appointments independently. She reports today that she knows that she is no longer able to care for herself. She is ready for placement. -Recommendations prior to initiating hospice care were for palliative radiation to painful bone metastases as well as evaluation for a Pleurx drain for palliation of recurrent malignant effusion. Rad Onc, Pulm and CTS consulted Pain secondary to malignancy -Aggressive pain management regimen initiated. IV push morphine, antianxiety medications, and topical analgesics ordered -Aggressive bowel regimen for prevention of narcotic induced constipation ordered -Case discussed with Radiation Oncology who was planning on starting radiation today. Not felt that patient would have adequate enough pain control yet to position properly for radiation. They will see and assess patient, further recommendations will follow Malignant pleural effusion -Pulmonary has seen patient. CTS consulted for palliative Pleurx drain insertion Hospice philosophy was reviewed with the patient. She is agreeable for the same. Case was discussed with nursing as well as case resource manager. They will assist in getting placement for the patient. Doctor attests: I performed a history and physical examination of this patient, developed impression and plan of care. Discussed with dictator. I agree with dictators note, documented as a scribe.
[2023-11-02] MEDS: INSULIN ASPART (NovoLOG) 100 UNIT/ML VIAL SQ SCH (18:20)
[2023-11-02 20:08] LABS: Glucose,Whole Blood 146 mg/dL (70-110)
[2023-11-02] MEDS: ATORVASTATIN 40 MG TAB PO SCH (21:59)
[2023-11-03 02:03] VITALS: RESP 18
[2023-11-03] MEDS: LEVOTHYROXINE 125 MCG TAB PO SCH (05:55)
[2023-11-03 07:33] LABS: Glucose,Whole Blood 134 mg/dL (70-110)
[2023-11-03] MEDS: CHOLECALCIFEROL 25 MCG (1000 IU) TABLET PO SCH (08:36)
[2023-11-03] MEDS: ESCITALOPRAM 10 MG TAB PO SCH (08:37)
[2023-11-03] MEDS: FAMOTIDINE 20 MG TAB PO SCH (08:37)
[2023-11-03] MEDS: LINAGLIPTIN 5 MG TABLET PO SCH (08:37)
[2023-11-03 10:08] VITALS: BP 139/73; PULSE 89; TEMP 98.6
--- NOTE | 2023-11-03 11:19 | P.PN ---
Subjective Progress Note Date: 11/03/23 Principal diagnosis: Recurrent right malignant pleural effusion. Past medical history significant for recent diagnosis of metastatic lung cancer, recurrent right pleural effusions with cytology positive for malignancy, hypertension, hyperlipidemia, coronary artery disease status post PCI, diabetes mellitus type 2, hypothyroidism, remote history of nicotine dependence, quit smoking around 30 years ago, history of bilateral carotid artery disease with history of previous carotid artery stent, and frequent constipation. The patient was seen and examined in follow-up today November 03, 2023 at her bedside on the fifth floor medical oncology unit. Currently she is laying in bed, is awake, alert, oriented x 3 and is in no acute apparent distress. Patient denies any complaints of pain or shortness of breath at this time. She is currently on 2 L nasal cannula with oxygen saturations 95%. Cardiothoracic surgery service was consulted for possible right Pleurx catheter placement, but the patient has decided after speaking with her family that she does not want Pleurx catheter placement. Objective - Vital Signs Vital signs: Vital Signs Temp 98.6 F 11/03/23 07:34 Pulse 89 11/03/23 07:34 Resp 18 11/03/23 07:34 BP 139/73 11/03/23 07:34 Pulse Ox 95 11/03/23 07:34 FiO2 Intake & Output 11/02/23 11/03/23 11/03/23 18:59 06:59 18:59 Output Total 200 Balance -200 Output: Urine 200 Other: Voiding Method Bedpan Bedpan External Catheter External Catheter # Voids 1 - Exam GENERAL EXAM: Patient is laying in bed, appears comfortable and in no apparent distress. HEAD: Normocephalic and atraumatic. EYES: Normal reaction of pupils, equal size. NOSE: Clear with pink turbinates. THROAT: No erythema or exudates. NECK: No masses, no JVD. CHEST: No chest wall deformity. LUNGS: Lung sounds essentially clear throughout, diminished to her right lower lobe. No wheezes, rhonchi or crackles. Respirations are symmetrical and nonlabored. Oxygen saturation is 95% on 2 L nasal cannula. CVS: Regular rhythm and rate. S1 and S2 present, negative for S3, gallop or murmur. ABDOMEN: Abdomen is soft, nontender and nondistended. Active bowel sounds present all 4 abdominal quadrants. No guarding or rigidity. No organomegaly appreciated. SKIN: Skin is warm and dry. No clubbing or cyanosis is present. CENTRAL NERVOUS SYSTEM: No focal deficits, tone is normal in all 4 extremities. EXTREMITIES: There is mild nonpitting edema bilaterally. Peripheral pulses are intact. - Allied health notes Allied health notes reviewed: nursing - Labs CBC & Chem 7: 11/01/23 16:33 11/01/23 16:33 Labs: Abnormal Lab Results - Last 24 Hours (Table) 11/02/23 11/02/23 11/03/23 Range/Units 17:10 19:52 07:31 POC Glucose (mg/dL) 219 H 146 H 134 H (70-110) mg/dL Assessment and Plan Assessment: Recurrent right-sided malignant effusion Metastatic adenocarcinoma lung Acute hypoxic respiratory failure secondary to above History of hypertension History of coronary artery disease with prior PCI Hyperlipidemia Diabetes mellitus type 2 Hypothyroidism History of carotid disease, status post carotid stenting Medical debility Plan: The patient has decided not to proceed with the Pleurx catheter placement after long discussion with her family members, we will continue to follow the patient on an as-needed basis, please reconsult if patient is to change their mind regarding Pleurx catheter placement. Time with Patient: Less than 30
[2023-11-03 11:47] LABS: Basophils # (A) 0.06 X 10*3/uL (0.00-0.10); Basophils % (A) 0.6 %; Eosinophils # (A) 0.15 X 10*3/uL (0.04-0.35); Eosinophils % (A) 1.5 %; HCT 35.8 % (37.2-46.3); HGB 11.4 g/dL (12.0-15.0); Lymphocytes # (A) 1.16 X 10*3/uL (0.90-5.00); Lymphocytes % (A) 11.7 %; MCH 28.6 pg (27.0-32.0); MCHC 31.8 g/dL (32.0-37.0); MCV 89.9 FL (80.0-97.0); Mean Platelet Volume 8.8 FL (9.5-12.2); Monocytes # (A) 0.79 X 10*3/uL (0.20-1.00); NRBC Per 100 WBC 0 X 10*3/uL (0.00-0.01); Neutrophils # (A) 7.72 X 10*3/uL (1.80-7.70); Neutrophils % (A) 77.8 %; Platelet Count 236 X 10*3/uL (140-440); RBC 3.98 X 10*6/uL (4.10-5.20); WBC 9.92 X 10*3/uL (4.50-10.00)
[2023-11-03 12:05] LABS: Glucose,Whole Blood 178 mg/dL (70-110)
[2023-11-03 12:16] LABS: Blood Urea Nitrogen 15.2 mg/dL (9.0-27.0); Calcium 9.8 mg/dL (8.7-10.3); Chloride 93 mmol/L (96-109); Glucose 132 mg/dL (70-110); Magnesium 1.6 mg/dL (1.5-2.4); Potassium 3.4 mmol/L (3.5-5.5); Sodium 137 mmol/L (135-145)
--- NOTE | 2023-11-05 19:41 | P.DS ---
Providers Date of admission: 11/02/23 11:04 Attending physician: Linh Coreas Consults: 11/01/23 20:13 Consult Physician Routine Consulting Provider: Markie Alan Consult Reason/Comments: pleural effusion Do you want consulting provider notified?: Yes, Notify in am 11/02/23 05:44 Consult Physician Routine Consulting Provider: Bianka Lima Consult Reason/Comments: Known, metastatic lung cancer Do you want consulting provider notified?: Yes, Notify in am 11/02/23 08:40 Consult Physician Routine Consulting Provider: Sly Lopes Consult Reason/Comments: pleurx placement Do you want consulting provider notified?: Already Contacted 11/02/23 10:48 Consult Physician Routine Consulting Provider: William Lu Consult Reason/Comments: painful bone mets Do you want consulting provider notified?: Already Contacted Primary care physician: Esteban Grant [facility] Course: Final Diagnosis Generalized weakness due to metastatic cancer with disease progression Metastatic adenocarcinoma pulmonary origin with involvement of osseous structures, lymphnodes, liver, and right pleural fluid. Recurrent right sided thoracentesis requiring thoracentesis x 2 prior to this hospitalization Acute hypoxemic respiratory failure secondary to above Hyponatremia hypervolemic, normalized with IV lasix. Hypertension currently normotensive Hypomagnesemia improved with supplementation. Hx of coronary artery disease with prior PCI maintained on aspirin 81 mg daily Hyperlipidemia on statin therapy was resumed Diabetes mellitus type 2 Hx of hypothyroidism on synthroid Discharge Disposition Patient will be discharged to [facility]. Hospital Course This is a pleasant 78-year-old female with medical history significant for hypertension, diabetes mellitus, hyperlipidemia, hypothyroidism, coronary artery disease with prior cardiac stenting, carotid artery disease, former smoker. Patient was recently diagnosed with metastatic lung disease A chest CTA done at that time showed a right perihilar mass with possible postobstructive pneumonia, and right-sided pleural effusion requiring paracentesis x 2. Had a PET scan done on October 22, 2023. Findings are suggestive of a liver mass as well as a pathologic fracture at T3, there are also other osseous structions and lymph nodes affected. She is also having a recurrent right-sided pleural effusion she did undergo thoracentesis with pulmonary most recently on October 02, 2023. Pleural fluid is positive for metastatic carcinoma suggestive of pulmonary adenocarcinoma. Patient is seen today on the medical floor she is currently reporting increased weakness, shortness of breath, and incontinence of urine and stool over the last 1 to 2 weeks. She has been set up with Dr Lu with Rad- Onc outpatient and was supposed to start palliative radiation this week per the patient. Workup this admission shows a mild increase in pulmonary edema with known right-sided malignancy with associated pleural effusion on chest x-ray. The pleural effusion appears larger than previous. EKG reveals sinus rhythm with a heart rate of [address] or T wave changes. Patient was admitted to the hospital with a consult placed to pulmonary services. Patient is scheduled to undergo a chest ultrasound with possible placement of a Pleurx catheter today. Her initial blood work reveals a white blood cell count of 14.0, sodium level of 131, potassium 3.7, BUN of 28, creatinine of 0.65, glucose of 215, magnesium 1.5. Her urinalysis is not suggestive of infection, viral panel is negative for influenza, COVID or RSV. Patient is currently on 2 L of oxygen and she has been afebrile. She is requesting to talk with hospice services about discharge planning and feels that she is ready for transition to hospice at a facility. She feels she is unable to care for herself at home and she is no longer able to get around. Patient was evaluated by cardiothoracic services and at this time patient has opted out of pleurex catheter placement. She was given a dose of IV lasix. Her sodium improved to 137, renal function remains stable. Patient has decided to discharge to [facility]. Please see medication reconciliation for a list of current medications. Thank you for allowing us to participate in the care of this patient. The impression and plan of care has been dictated by Nurse Hanna Donohue [email or web address] as directed. Dr. Meeta MD I have performed a history and physical examination and medical decision making of this patient, discussed the same with the dictator, and agree with the dictat ors assessment and plan as written, documented as a scribe. Based on total visit time, I have performed more than 50% of this visit. Patient Condition at Discharge: Stable Plan - Discharge Summary Discharge Rx Participant: No New Discharge Prescriptions: New Lidocaine 4% Patch 1 patch TOPICAL DAILY patch Continue Atorvastatin [Lipitor] 40 mg PO HS sitaGLIPtin [Januvia] 50 mg PO DAILY Levothyroxine Sodium [Synthroid] 125 mcg PO DAILY Cholecalciferol [Vitamin D3 (25 Mcg = 1000 Iu)] 50 mcg PO DAILY HYDROcodone/APAP 5-325MG [[place] 5-325] 1 tab PO BID PRN PRN Reason: Pain Ibuprofen/Acetaminophen [Advil Dual Action 125MG(IBU)-250MG(ACET)] 1 tab PO Q6H PRN PRN Reason: Pain Escitalopram [Lexapro] 10 mg PO DAILY Naloxone HCl [Narcan] 4 mg NASAL DIRECTED PRN PRN Reason: Opioid Reversal Morphine Sulfate Ir [MSIR] 15 mg PO BID Discontinued amLODIPine [Norvasc] 10 mg PO DAILY Losartan [Cozaar] 50 mg PO DAILY Bisoprolol-Hctz 2.5-6.25 mg [Ziac 2.5-6.25 MG] 1 tab PO DAILY Discharge Medication List Atorvastatin [Lipitor] 40 mg PO HS 09/16/15 [History] Cholecalciferol [Vitamin D3 (25 Mcg = 1000 Iu)] 50 mcg PO DAILY 09/14/23 [History] Levothyroxine Sodium [Synthroid] 125 mcg PO DAILY 09/14/23 [History] sitaGLIPtin [Januvia] 50 mg PO DAILY 09/14/23 [History] Escitalopram [Lexapro] 10 mg PO DAILY 09/22/23 [History] HYDROcodone/APAP 5-325MG [[place] 5-325] 1 tab PO BID PRN 11/01/23 [History] Ibuprofen/Acetaminophen [Advil Dual Action 125MG(IBU)-250MG(ACET)] 1 tab PO Q6H PRN 11/01/23 [History] Morphine Sulfate Ir [MSIR] 15 mg PO BID 11/01/23 [History] Naloxone HCl [Narcan] 4 mg NASAL DIRECTED PRN 11/01/23 [History] Lidocaine 4% Patch 1 patch TOPICAL DAILY patch 11/03/23 [Rx] Follow up Appointment(s)/Referral(s): Esteban Grant DO [Primary Care Provider] - 1-2 days Activity/Diet/Wound Care/Special Instructions: Discharge to [facility] Discharge Disposition: DISCH TO [facility]
== END 2023-11-03 12:33 | disposition hospice, inpatient (51) | DRG 180 ==
LOC: EC 15:35 → 5NMEDONC 19:43 → OBSVTOIN 11-02 11:04
PROVIDERS: ADMIT Hospitalist; ATTEND Hospitalist
DX: C34.11 Malignant neoplasm of upper lobe, right bronchus or lung (principal); J96.01 Acute respiratory failure with hypoxia; C78.7 Secondary malignant neoplasm of liver and intrahepatic bile duct; C77.9 Secondary and unspecified malignant neoplasm of lymph node, unspecified; C79.51 Secondary malignant neoplasm of bone; J91.0 Malignant pleural effusion; E87.1 Hypo-osmolality and hyponatremia; G89.3 Neoplasm related pain (acute) (chronic); Z87.891 Personal history of nicotine dependence; E03.9 Hypothyroidism, unspecified; E78.5 Hyperlipidemia, unspecified; E83.42 Hypomagnesemia; E87.70 Fluid overload, unspecified; I10 Essential (primary) hypertension; R15.9 Full incontinence of feces; I25.10 Atherosclerotic heart disease of native coronary artery without angina pectoris; N28.1 Cyst of kidney, acquired; R32 Unspecified urinary incontinence; Z51.5 Encounter for palliative care; Z66 Do not resuscitate; Z79.84 Long term (current) use of oral hypoglycemic drugs; Z79.890 Hormone replacement therapy; Z79.899 Other long term (current) drug therapy; Z79.82 Long term (current) use of aspirin; Z95.5 Presence of coronary angioplasty implant and graft; Z88.6 Allergy status to analgesic agent; Z88.2 Allergy status to sulfonamides; Z28.311 Partially vaccinated for COVID-19; Z28.21 Immunization not carried out because of patient refusal
CPT/HCPCS: 36415; 71046; 76604; 80048; 80053; 81001; 83036; 83735; 84100; 85025; 85610; 85730; 87636; 93005; 94640; 94664; 96365; 96375; 96376; 99285